=== PATIENT | male | born 1930 | race Caucasian/White ===

== ENCOUNTER → 2018-06-19 | Outpatient (CLI) | payer BC ==
[2018-06-19 08:52] LABS: HEMATOCRIT 39.9 % (37.9-51.0); HEMOGLOBIN 13.3 g/dL (13.5-17.0); MEAN CORPUSCULAR HEMOGLOBIN 32.5 pg (27.0-33.4); MEAN CORPUSCULAR HGB CONC 33.4 g/dL (32.0-36.0); MEAN CORPUSCULAR VOLUME 97 fl (80-97); PLATELET COUNT 240 10^3/uL (150-450); RED CELL DISTRIBUTION WIDTH 13.9 % (11.5-14.0); WHITE BLOOD COUNT 7.2 10^3/uL (4.0-10.5)
[2018-06-19 09:19] LABS: ALANINE AMINOTRANSFERASE 28 U/L (21-72); ALBUMIN 3.8 g/dL (3.5-5.0); ALKALINE PHOSPHATASE 32 U/L (38-126); ANION GAP 12 (5-19); ASPARTATE AMINO TRANSFERASE 33 U/L (17-59); BILIRUBIN,DIRECT 0.2 mg/dL (0.0-0.4); BILIRUBIN,TOTAL 0.5 mg/dL (0.2-1.3); BLOOD UREA NITROGEN 20 mg/dL (7-20); CALCIUM 9.6 mg/dL (8.4-10.2); CARBON DIOXIDE 24 mmol/L (22-30); CHLORIDE 108 mmol/L (98-107); GLUCOSE 114 mg/dL (75-110); POTASSIUM 4.4 mmol/L (3.6-5.0); SODIUM 143.8 mmol/L (137-145); TOTAL PROTEIN 6.6 g/dL (6.3-8.2)
== END ==
LOC: LCAL 07:52
PROVIDERS: ATTEND Internal Medicine
DX: M05.89 Other rheumatoid arthritis with rheumatoid factor of multiple sites (principal)
CPT/HCPCS: 36415; 80053; 85027

== ENCOUNTER 2019-02-06 23:05 | Emergency (ER) | payer MEDICARE, BC ==
[2019-02-06] MEDS ORDERED: HYDROCODONE/ACETAMINOPHEN 5-325 MG TABLET PO ONE (23:32)
[2019-02-06] MEDS ORDERED: METHYLPREDNISOLONE INJ 125 MG/2 ML SDV IM ONE (23:32)
--- NOTE | 2019-02-06 23:35 | ER Document Report ---
HPI - HPI Time Seen by Provider: 02/06/19 23:18 Pain Level: 4 Context: Patient is a 89-year-old male that comes emergency department from long-term [facility] facility by EMS for chief complaint of left back and upper shoulder pain. He denies pain in the front shoulder or chest. Denies shortness of breath, injury, fever/chills, cough. 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 He has a history of rheumatoid arthritis on methotrexate. Remaining history includes dementia, COPD, TBI. He is not a diabetic. Past Medical History - General Information source: Patient - Social History Smoking Status: Never Smoker Frequency of alcohol use: None Drug Abuse: None Lives with: Family Family History: Reviewed & Not Pertinent Pulmonary Medical History: Reports: Hx COPD - Immunizations Hx Diphtheria, Pertussis, Tetanus Vaccination: Yes Vertical Provider Document - CONSTITUTIONAL General Appearance: WD/WN, No Apparent Distress - INFECTION CONTROL TRAVEL OUTSIDE OF THE [place] IN LAST 30 DAYS: No - HEENT HEENT: Atraumatic, Normocephalic - NECK Neck: Normal Inspection - RESPIRATORY Respiratory: Breath Sounds Normal, No Respiratory Distress - CARDIOVASCULAR Cardiovascular: Regular Rate, Regular Rhythm - GI/ABDOMEN Gastrointestinal: Abdomen Soft, Abdomen Non-Tender - BACK Back: Normal Inspection - MUSCULOSKELETAL/EXTREMETIES Musculoskeletal/Extremeties: MAEW, FROM, Tender - There is tenderness of the left shoulder just superior to the left scapula, there is point tenderness which is specific and reproducible. Pain is present with range of motion but not severe, range of motion is intact. Strength is normal, distal neurovascular is normal, unremarkable extremity exam otherwise - NEURO Level of Consciousness: Awake, Alert, Appropriate Motor/Sensory: No Motor Deficit, No Sensory Deficit - DERM Integumentary: Warm, Dry, No Rash Course - Re-evaluation Re-evalutation: Patient is pleasant, alert, conversational. He reaches behind his left shoulder and points to a specific area just beside scapula and just above the scapula where he has pain, this is reproducible, palpable, mildly tender. Pain is reproducible with range of motion but not severely tender. He does not have reduced range of motion. This does not appear to be musculoskeletal only with strain/spasm and patient with history of arthritis. I did discuss options including aggressive approach such as cardiac workup and imaging but patient declined. He is still oriented and specific that I feel he has the capacity to decline this and based on his benign examination I do not feel this is definitely indicated. His vital signs unremarkable. He states he does not want something for it to be comfortable now, he was provided with this, after discussion we also decided to give him a dose of steroids here. He does not have orthopedics here, he asks for a referral. He was given this. He will be taken back to long-term care facility with return precautions. Patient states satisfaction and agreement. Discharge - Discharge Clinical Impression: Upper back pain on left side Left shoulder pain Qualifiers: Chronicity: acute Qualified Code(s): M25.512 - Pain in left shoulder Condition: Stable Disposition: HOME, SELF-CARE Additional Instructions: You have been treated today for the pain in your left upper back and shoulder. I recommend orthopedic follow-up, see referral, perform this especially if symptoms continue for additional management. Return if you worsen including increased pain, fever, shortness of breath, pain in your chest, headache, or any other concerning or worsening symptoms. Referrals: OYUNG LOZANO MD [ACTIVE STAFF] - Follow up in 1 week
[2019-02-07 02:28] VITALS: BP 156/80
== END 2019-02-07 02:28 | disposition home or self-care (01) ==
LOC: ER 23:05
DX: M06.9 Rheumatoid arthritis, unspecified (principal); Z79.899 Other long term (current) drug therapy; M54.89 Other dorsalgia; M25.512 Pain in left shoulder; J44.9 Chronic obstructive pulmonary disease, unspecified
CPT/HCPCS: 99283; 96372; J2930; A9270

== ENCOUNTER → 2019-11-27 | Outpatient (CLI) | payer MEDICARE, BC ==
[2019-11-27 10:44] LABS: ALBUMIN 4.1 g/dL (3.5-5.0); ALKALINE PHOSPHATASE 55 U/L (38-126); ANION GAP 10 (5-19); ASPARTATE AMINO TRANSFERASE 26 U/L (17-59); BILIRUBIN,DIRECT 0.2 mg/dL (0.0-0.4); BILIRUBIN,TOTAL 0.5 mg/dL (0.2-1.3); BLOOD UREA NITROGEN 16 mg/dL (7-20); CALCIUM 9.6 mg/dL (8.4-10.2); CARBON DIOXIDE 27 mmol/L (22-30); CHLORIDE 100 mmol/L (98-107); GLUCOSE 93 mg/dL (75-110)
== END ==
LOC: OD 09:29
PROVIDERS: ATTEND Internal Medicine
DX: M05.9 Rheumatoid arthritis with rheumatoid factor, unspecified (principal); Z79.899 Other long term (current) drug therapy
CPT/HCPCS: 36415; 80053

== ENCOUNTER 2020-05-02 17:16 | Inpatient (IN) | payer MEDICARE, BC ==
[2020-05-02] MEDS ORDERED: NORMAL SALINE 1000 ML 1,000 ML IV ONE (17:42)
[2020-05-02 17:55] LABS: HEMOGLOBIN 11.3 g/dL (13.5-17.0); MEAN CORPUSCULAR HEMOGLOBIN 32.2 pg (27.0-33.4); MEAN CORPUSCULAR HGB CONC 33.3 g/dL (32.0-36.0); MEAN CORPUSCULAR VOLUME 97 fl (80-97); PLATELET COUNT 240 10^3/uL (150-450); RED BLOOD COUNT 3.52 10^6/uL (4.35-5.55); RED CELL DISTRIBUTION WIDTH 14.1 % (11.5-14.0); VENOUS BLOOD BASE EXCESS 1.2 mmol/L; VENOUS BLOOD HCO3 24.5 mmol/L (20-32); VENOUS BLOOD PCO2 34.8 mmHg (35-63); VENOUS BLOOD PH 7.47 (7.30-7.42); WHITE BLOOD COUNT 22.5 10^3/uL (4.0-10.5)
[2020-05-02] MEDS ORDERED: VANCOMYCIN HCL INJ 1000 MG VIAL IV ONE (18:13)
[2020-05-02 18:14] LABS: ALBUMIN 2.8 g/dL (3.5-5.0); ALKALINE PHOSPHATASE 67 U/L (38-126); ANION GAP 8 (5-19); ASPARTATE AMINO TRANSFERASE 27 U/L (17-59); BILIRUBIN,DIRECT 0.2 mg/dL (0.0-0.4); BILIRUBIN,TOTAL 0.7 mg/dL (0.2-1.3); BLOOD UREA NITROGEN 41 mg/dL (7-20); CALCIUM 8.5 mg/dL (8.4-10.2); CARBON DIOXIDE 24 mmol/L (22-30); CHLORIDE 97 mmol/L (98-107); GLUCOSE 156 mg/dL (75-110); POTASSIUM 4.1 mmol/L (3.6-5.0); TOTAL PROTEIN 5.6 g/dL (6.3-8.2)
[2020-05-02 18:18] LABS: INTERNATIONAL RATION (INR) 1.27
[2020-05-02] MEDS ORDERED: AZITHROMYCIN INJ 500 MG VIAL IV ONE (18:22)
[2020-05-02] MEDS ORDERED: IBUPROFEN 600 MG TABLET PO ONE (18:22)
--- NOTE | 2020-05-02 18:22 | ER Document Report ---
ED General - General Chief Complaint: Fever Stated Complaint: FEVER Time Seen by Provider: 05/02/20 18:13 Primary Care Provider: JOSEFINA CASTANEDA MD [Primary Care Provider] - Follow up as needed Notes: Patient presents with generalized weakness and fever from nursing facility. He has no complaints. History is unavailable. Initially hypotensive sepsis alert called. TRAVEL OUTSIDE OF THE [place] IN LAST 30 DAYS: No - Related Data Allergies/Adverse Reactions: gabapentin Allergy (Verified 02/07/19 00:06) lidocaine Allergy (Verified 02/07/19 00:06) meperidine [From Demerol] Allergy (Verified 02/07/19 00:06) Past Medical History - General Cannot obtain history due to: Dementia - Social History Smoking Status: Former Smoker Chew tobacco use (# tins/day): No Frequency of alcohol use: None Drug Abuse: None Family History: Reviewed & Not Pertinent Patient has homicidal ideation: No Pulmonary Medical History: Reports: Hx COPD Renal/ Medical History: Denies: Hx Peritoneal Dialysis GI Medical History: Reports: Hx Gastroesophageal Reflux Disease Musculoskeletal Medical History: Reports Hx Arthritis - RA - Immunizations Hx Diphtheria, Pertussis, Tetanus Vaccination: Yes Review of Systems - Review of Systems Notes: REVIEW OF SYSTEMS Dementia PHYSICAL EXAMINATION General: A, pale no acute distress, well-nourished Head: Atraumatic, normocephalic ENT: Mouth normal, oropharynx moist, no exudates or tonsillar enlargement Eyes: Conjunctiva normal, pupils equal, lids normal Neck: No JVD, supple, no guarding CVS: Normal rate, regular rhythm, no murmurs Resp: No resp distress, equal and normal breath sounds bilaterally GI: Nondistended, soft, no tenderness to palpation, no rebound or guarding Ext: No deformities, no edema, normal range of motion in upper and lower ext Back: No CVA or midline TTP Skin: No rash, warm Lymphatic: No lymphadeopathy noted Neuro: Awake, alert. Which he confabulation but is not oriented to year or place. Knows his name. Face is symmetric with no dysarthria and he moves all extremities equally. Physical Exam - Vital signs Vitals: Temp Pulse Ox 101.0 F H 93 05/02/20 17:16 05/02/20 17:16 Course - Re-evaluation Re-evalutation: 06/15/20 21:51 Mental status with signs and symptoms of sepsisunclear source initially differential includes COVID Skin with no acute infection X-ray shows questionable left lower lobe infiltrate. Given Rocephin vancomycin and azithromycin to cover for any potential sepsis source. Given fluids order 2 L but expressed interest I want 30 mL/kg total. Lactic is elevated but not to the point of septic shock and pressure responded to fluids Patient's urine is also infected. Discussed with Dr. Arrington who requested we do a CT to rule out impacted kidney stone The CT did not show this but did confirm a left lower lobe consolidation. Patient's white count is grossly elevated and he has a touch of acute kidney injury. Fluids should help this. He was [address] Arrington at 9:50 PM who accepted him to the [facility]. Claire known wn CODE STATUS, no paperwork from facility. COVID pending. - Vital Signs Vital signs: Temp Pulse Resp BP Pulse Ox 97.6 F 19 93/60 L 97 05/02/20 20:39 05/02/20 20:31 05/02/20 20:31 05/02/20 20:31 - Laboratory Result Diagrams: 05/02/20 17:28 05/02/20 17:28 Laboratory results interpreted by me: 05/02/20 05/02/20 05/02/20 17:28 17:28 17:28 WBC 22.5 H RBC 3.52 L Hgb 11.3 L Hct 34.0 L RDW 14.1 H Seg Neuts % (Manual) 85 H Band Neutrophils % 2 L Lymphocytes % (Manual) 4 L Abs Neuts (Manual) 19.6 H Abs Monocytes (Manual) 2.0 H PT 16.0 H VBG pH VBG pCO2 Sodium 128.6 L Chloride 97 L BUN 41 H Creatinine 2.26 H Est GFR ( Amer) 33 L Est GFR (MDRD) Non-Af 28 L Glucose 156 H Total Protein 5.6 L Albumin 2.8 L Urine Urobilinogen Ur Leukocyte Esterase Urine Ascorbic Acid 05/02/20 05/02/20 17:28 18:34 WBC RBC Hgb Hct RDW Seg Neuts % (Manual) Band Neutrophils % Lymphocytes % (Manual) Abs Neuts (Manual) Abs Monocytes (Manual) PT VBG pH 7.47 H VBG pCO2 34.8 L Sodium Chloride BUN Creatinine Est GFR ( Amer) Est GFR (MDRD) Non-Af Glucose Total Protein Albumin Urine Urobilinogen 2.0 H Ur Leukocyte Esterase LARGE H Urine Ascorbic Acid 40 H - Diagnostic Test Radiology reviewed: Image reviewed, Reports reviewed - EKG Interpretation by Me EKG shows normal: Sinus rhythm Rate: Normal Rhythm: NSR - No ST or T wave changes Critical Care Note - Critical Care Note Total time excluding time spent on procedures (mins): 34 Comments: The above patient is critically ill. Not including procedures, but including direct re-evaluations, speaking with patient and/or consultants, interpreting results, and documenting, I spent the total amount of minute listed listed above on critical care time Discharge - Discharge Clinical Impression: Left lower lobe pneumonia Qualifiers: Pneumonia type: due to unspecified organism Qualified Code(s): J18.9 - Pneumonia, unspecified organism Condition: Fair Disposition: ADMITTED INPATIENT Admitting Provider: Murphy (Hospitalist) Unit Admitted: IMCU Referrals: JOSEFINA CASTANEDA MD [Primary Care Provider] - Follow up as needed
[2020-05-02 18:45] LABS: ABSOLUTE LYMPHOCYTES# (MANUAL) 0.9 10^3/uL (0.5-4.7); BAND NEUTROPHILS % (MANUAL) 2 % (3-5); BASOPHILS % (MANUAL) 0 % (0-2); EOSINOPHILS % (MANUAL) 0 % (0-6); LYMPHOCYTES % (MANUAL) 4 % (13-45); MONOCYTES % (MANUAL) 9 % (3-13); SEGMENTED NEUTROPHILS % (MAN) 85 % (42-78); TOTAL CELLS COUNTED 100
[2020-05-02 18:47] LABS: BURR CELLS SLIGHT; OVALOCYTES 1+
[2020-05-02] MEDS: RINGERS SOLUTION,LACTATED 1,000 ML IV PRN ×2 (18:47→19:36)
[2020-05-02] MEDS ORDERED: ASPIRIN 325 MG TABLET PO ONE (18:47)
[2020-05-02 18:48] LABS: PLATELET COMMENT ADEQUATE; SCHISTOCYTES SLIGHT
[2020-05-02] MEDS ORDERED: CEFTRIAXONE 1 GM/D5W RTU 1 GM/50 ML RTUPB IV ONE (19:00)
--- NOTE | 2020-05-02 19:10 | RADIOLOGY REPORT (SQ) ---
EXAM DESCRIPTION: CHEST SINGLE VIEW IMAGES COMPLETED DATE/TIME: 05/02/2020 6:44 pm REASON FOR STUDY: fever COMPARISON: None. EXAM PARAMETERS: NUMBER OF VIEWS: One view. TECHNIQUE: Single frontal radiographic view of the chest acquired. RADIATION DOSE: NA LIMITATIONS: None. FINDINGS: LUNGS AND PLEURA: Elevated left hemidiaphragm. Hazy opacification in the left base that b lurs the diaphragm. MEDIASTINUM AND HILAR STRUCTURES: No masses. Contour normal. HEART AND VASCULAR STRUCTURES: Heart normal in size. Normal vasculature. BONES: No acute findings. HARDWARE: None in the chest. OTHER: No other significant finding. IMPRESSION: Elevated left hemidiaphragm. Cannot exclude left lower lobe pneumonia. TECHNICAL DOCUMENTATION: JOB ID: [id number] 2010 [employer]- All Rights Reserved Reading location - IP/workstation name: [email or web address]
[2020-05-02 19:31] LABS: APPEARANCE,URINE SLIGHTLY-CLOUDY; BILIRUBIN,URINE NEGATIVE (NEGATIVE); COLOR,URINE AMBER; GLUCOSE, URINE NEGATIVE (NEGATIVE); KETONES,URINE NEGATIVE (NEGATIVE); LEUKOCYTE ESTERASE,URINE LARGE (NEGATIVE); NITRITE,URINE NEGATIVE (NEGATIVE); PROTEIN,URINE NEGATIVE (NEGATIVE); URINE SPECIFIC GRAVITY 1.015
--- NOTE | 2020-05-02 19:58 | EKG REPORT ---
SEVERITY:- ABNORMAL ECG - SEVERE BASELINE TREMORS. BORDERLINE LEFT AXIS DEVIATION LEFT VENTRICULAR HYPERTROPHY : Confirmed by: Eldon Fraser MD 02-May-2020 19:58:16
--- NOTE | 2020-05-02 21:41 | RADIOLOGY REPORT (SQ) ---
CLINICAL INDICATION: stone?. Abdominal pains. TECHNIQUE: Noncontrast spiral axial CT imaging was obtained of the abdomen and pelvis with multiplanar reconstructions. This exam was performed according to our departmental dose-optimization program, which includes automated exposure control, adjustment of the mA and/or kV according to patient size and/or use of iterative reconstruction techniques. COMPARISON: None. CORRELATION: None. FINDINGS: Abdomen: The lung bases demonstrate dependent airspace disease bilaterally both atelectatic and consolidated topically left base. No significant pleural fluid. No pneumothorax. The heart is prominent with coronary calcification. No pericardial fluid. Apparent pleural calcification left hemithorax The liver is homogeneous. The gallbladder demonstrates cholelithiasis without acute cholecystitis. The pancreas is of grossly normal contour on this noncontrast examination. The spleen is unremarkable. The adrenals are unremarkable. The kidneys appear grossly normal without evidence of urolithiasis or hydronephrosis. Cortical loss, bilaterally. There is no evidence of free air. No free fluid. No bulky adenopathy. Abdominal aorta is nonaneurysmal. Pelvis: The bowel is nonobstructed. The bowel is unopacified with oral contrast. Pelvic contents there is a Trevizo catheter within a decompressed urinary bladder.. The appendix is not seen. Subcutaneous edema left lower quadrant. Visualized bones are unremarkable. IMPRESSION: Artifact from the patient's arms. Imaging is degraded by patient motion, with resultant artifact. The best possible images were obtained. Bibasilar airspace disease left greater than right. Most of this is atelectasis. There is a small consolidated component left lower lobe. Possibly pneumonia is raised. Cholelithiasis without acute cholecystitis. No acute intra-abdominal process is seen.
[2020-05-02] MEDS ORDERED: IPRATROPIUM/ALBUTEROL 0.5-2.5 MG/3 ML AMPUL NEB PRN (21:51)
[2020-05-02] MEDS ORDERED: MAG HYDROX/AL HYDROX/SIMETH SUSP 30 ML UDCUP PO PRN (21:51)
[2020-05-02] MEDS ORDERED: MAGNESIUM HYDROXIDE SUSP 30 ML UDCUP PO PRN (21:51)
[2020-05-02] MEDS ORDERED: VANCOMYCIN HCL 0 MG in DEXTROSE 5%-WATER 250 ML IV NR (22:00)
[2020-05-02] MEDS: DONEPEZIL HCL 5 MG TABLET PO SCH (22:46)
[2020-05-02] MEDS: HYDROCORTISONE SOD SUCCINATE INJ/PF 100 MG/2 ML SDV IV SCH (22:46)
[2020-05-02] MEDS: HEPARIN SOD (PORCINE) 5,000 UNIT/ML 1 ML VIAL SUBCUT SCH (22:47)
[2020-05-02] MEDS: NORMAL SALINE 1000 ML 1,000 ML IV PRN (22:59)
[2020-05-02 23:17] LABS: PHOSPHORUS 2.3 mg/dL (2.5-4.5)
[2020-05-03] MEDS: ASCORBIC ACID 500 MG TABLET PO SCH ×3 (00:18→17:10)
[2020-05-03] MEDS: ZINC SULFATE 220 MG CAPSULE PO SCH ×2 (00:19→09:43)
[2020-05-03 01:11] LABS: C-REACTIVE PROTEIN 371.4 mg/L (<10.0)
[2020-05-03] MEDS: IPRATROPIUM/ALBUTEROL 0.5-2.5 MG/3 ML AMPUL NEB SCH ×4 (01:49→16:07)
--- NOTE | 2020-05-03 03:29 | PDOC H&P ---
History of Present Illness Admission Date/PCP: 05/02/20 22:07 JOSEFINA CASTANEDA Patient complains of: Fever History of Present Illness: MATILDE MARINO is a 89 year old male assisted resident with a past medical history of dementia, COPD and GERD. He presents with fever of unknown duration. In the emergency department he is found to have hypotension, tachypnea and hypoxia with hyponatremia, presumed acute renal failure leukocytosis and elevated troponin with unremarkable EKG. And a left lower lobe infiltrate. Patient is intermittently cooperative, an extraordinarily poor historian and oriented to self only. He denies pain, nausea vomiting or shortness of breath. He started on empiric antibiotics and referred to the hospitalist for admission. Past Medical History Pulmonary Medical History: Reports: Chronic Obstructive Pulmonary Disease (COPD) Neurological Medical History: Reports: Other - Dementia GI Medical History: Reports: Gastroesophageal Reflux Disease Musculoskeltal Medical History: Reports: Arthritis - RA Psychiatric Medical History: Reports: Dementia Denies: Depression Social History Information Source: [facility] Records Lives with: Group Home Smoking Status: Former Smoker Electronic Cigarette use?: No Frequency of Alcohol Use: None Drugs: None - Advance Directive Resuscitation Status: Do Not Resuscitate Family History Family History: Other - Unobtainable Parental Family History Reviewed: Yes Children Family History Reviewed: Yes Sibling(s) Family History Reviewed.: Yes Medication/Allergy Home Medications: Alfuzosin HCl [Uroxatral] 10 mg PO DAILY 05/02/20 Aspirin [Ecotrin 81 mg EC Tablet] 81 mg PO DAILY 05/02/20 Cholecalciferol (Vitamin D3) [Vitamin D3 1000 Unit Tablet] 2,000 unit PO DAILY 05/02/20 Cyanocobalamin (Vitamin B-12) [Vitamin B-12 1000 mcg Tablet] 1,000 mcg PO DAILY 05/02/20 Donepezil HCl [Aricept 5 mg Tablet] 10 mg PO QHS 05/02/20 Fluticasone Propionate [Flonase Nasal Loda 50 Mcg/Loda 16 gm] 2 spray NASL DAILY 05/02/20 Folic Acid [Folvite 1 mg Tablet] 1 mg PO DAILY 05/02/20 Loratadine [Claritin 10 mg Tablet] 10 mg PO DAILY 05/02/20 Lorazepam [Ativan 0.5 mg Tablet] 0.5 mg PO Q6HP PRN 05/02/20 Meloxicam [Mobic 7.5 mg Tablet] 7.5 mg PO DAILY 05/02/20 Memantine HCl [Namenda 10 mg Tablet] 10 mg PO BID 05/02/20 Methotrexate Sodium [Rheumatrex 2.5 mg Tablet] 5 mg PO FR@1000 05/02/20 Omeprazole 20 mg PO Q6AM 05/02/20 Propylene Glycol/Peg 400 [Systane 0.3-0.4% Eye Drops] 1 drop OU TID 05/02/20 Sennosides/Docusate Sodium [Senna Plus 8.6-50 mg Tablet] 1 tab PO DAILY 05/02/20 Vit A/Vit C/Vit E/Zinc/Copper [Preservision Areds Tablet] 1 tab PO BID 05/02/20 Allergies/Adverse Reactions: gabapentin Allergy (Verified 02/07/19 00:06) lidocaine Allergy (Verified 02/07/19 00:06) meperidine [From Demerol] Allergy (Verified 02/07/19 00:06) Review of Systems ROS unobtainable: Due to mental status Physical Exam Vital Signs: Temp Pulse Resp BP Pulse Ox 97.7 F 97 18 110/66 94 05/02/20 23:40 05/03/20 00:07 05/02/20 23:40 05/02/20 23:40 05/02/20 23:40 Intake & Output 05/01/20 05/02/20 05/03/20 11:59 11:59 11:59 Intake Total 2866 Balance 2866 Weight 70.9 kg General appearance: PRESENT: mild distress, well-developed, well-nourished, other - Chronically ill-appearing. ABSENT: cooperative Head exam: PRESENT: atraumatic, normocephalic Eye exam: PRESENT: conjunctiva pink, EOMI, PERRLA. ABSENT: scleral icterus Ear exam: PRESENT: normal external ear exam Mouth exam: PRESENT: moist, tongue midline Neck exam: ABSENT: carotid bruit, JVD, lymphadenopathy, thyromegaly Respiratory exam: PRESENT: accessory muscle use, crackles, prolonged expiratory phas, retraction, rhonchi, tachypnea. ABSENT: symmetrical, wheezes Cardiovascular exam: PRESENT: RRR. ABSENT: diastolic murmur, rubs, systolic murmur Pulses: PRESENT: normal dorsalis pedis pul Vascular exam: PRESENT: normal capillary refill GI/Abdominal exam: PRESENT: normal bowel sounds, soft. ABSENT: distended, guarding, mass, organolmegaly, rebound, tenderness Rectal exam: PRESENT: deferred Extremities exam: PRESENT: full ROM. ABSENT: calf tenderness, clubbing, pedal edema Musculoskeletal exam: PRESENT: other - Global muscular atrophy Neurological exam: PRESENT: alert, awake, oriented to person, CN II-XII grossly intact. ABSENT: oriented to place, oriented to time, oriented to situation, motor sensory deficit Psychiatric exam: PRESENT: agitated Skin exam: PRESENT: dry, intact, warm. ABSENT: cyanosis, rash Results Laboratory Results: 05/02/20 17:28 05/02/20 17:28 05/02/20 05/02/20 05/02/20 17:28 17:28 17:28 WBC 22.5 H RBC 3.52 L Hgb 11.3 L Hct 34.0 L MCV 97 MCH 32.2 MCHC 33.3 RDW 14.1 H Plt Count 240 Seg Neutrophils % Not Reportable VBG pH 7.47 H VBG pCO2 34.8 L VBG HCO3 24.5 VBG Base Excess 1.2 Sodium 128.6 L Potassium 4.1 Chloride 97 L Carbon Dioxide 24 Anion Gap 8 BUN 41 H Creatinine 2.26 H Est GFR ( Amer) 33 L Glucose 156 H Lactic Acid Calcium 8.5 Phosphorus Magnesium Ferritin Total Bilirubin 0.7 AST 27 Alkaline Phosphatase 67 C-Reactive Protein Total Protein 5.6 L Albumin 2.8 L Urine Color Urine Appearance Urine pH Ur Specific [place] Urine Protein Urine Glucose (UA) Urine Ketones Urine Blood Urine Nitrite Ur Leukocyte Esterase Urine WBC (Auto) Urine RBC (Auto) 05/02/20 05/02/20 05/02/20 17:28 17:28 17:28 WBC RBC Hgb Hct MCV MCH MCHC RDW Plt Count Seg Neutrophils % VBG pH VBG pCO2 VBG HCO3 VBG Base Excess Sodium Potassium Chloride Carbon Dioxide Anion Gap BUN Creatinine Est GFR ( Amer) Glucose Lactic Acid 1.6 Calcium Phosphorus 2.3 L Magnesium 2.1 Ferritin 331.00 Total Bilirubin AST Alkaline Phosphatase C-Reactive Protein 371.4 H Total Protein Albumin Urine Color Urine Appearance Urine pH Ur Specific [place] Urine Protein Urine Glucose (UA) Urine Ketones Urine Blood Urine Nitrite Ur Leukocyte Esterase Urine WBC (Auto) Urine RBC (Auto) 06/05/02/20 05/03/20 18:34 20:30 00:38 WBC RBC Hgb Hct MCV MCH MCHC RDW Plt Count Seg Neutrophils % VBG pH VBG pCO2 VBG HCO3 VBG Base Excess Sodium Potassium Chloride Carbon Dioxide Anion Gap BUN Creatinine Est GFR ( Amer) Glucose Lactic Acid 1.9 1.2 Calcium Phosphorus Magnesium Ferritin Total Bilirubin AST Alkaline Phosphatase C-Reactive Protein Total Protein Albumin Urine Color TAL Urine Appearance SLIGHTLY-CLOUDY Urine pH 5.0 Ur Specific [place] 1.015 Urine Protein NEGATIVE Urine Glucose (UA) NEGATIVE Urine Ketones NEGATIVE Urine Blood NEGATIVE Urine Nitrite NEGATIVE Ur Leukocyte Esterase LARGE H Urine WBC (Auto) 36 Urine RBC (Auto) 4 05/02/20 05/02/20 05/03/20 17:28 17:28 00:38 Creatine Kinase 310 H Troponin I 0.703 0.422 Impressions: Chest X-Ray 05/02/20 18:11 IMPRESSION: Elevated left hemidiaphragm. Cannot exclude left lower lobe pneumonia. Abdomen/Pelvis CT 05/02/20 19:39 IMPRESSION: Artifact from the patient's arms. Imaging is degraded by patient motion, with resultant artifact. The best possible images were obtained. Bibasilar airspace disease left greater than right. Most of this is atelectasis. There is a small consolidated component left lower lobe. Possibly pneumonia is raised. Cholelithiasis without acute cholecystitis. No acute intra-abdominal process is seen. Assessment and Plan - Diagnosis (1) Left lower lobe pneumonia Qualifiers: Pneumonia type: due to unspecified organism Qualified Code(s): J18.9 - Pneumonia, unspecified organism Is this a current diagnosis for this admission?: Yes Plan: Pneumonia care set, significant suspicion of COVID, follow-up labs otherwise empiric antibiotics, follow-up CBC, blood culture and COVID testing. (2) Shortness of breath Is this a current diagnosis for this admission?: Yes Plan: Secondary to #1, incentive spirometry, flutter valve as tolerated, supplemental oxygen, albuterol and Atrovent, (3) Acute renal failure (ARF) Is this a current diagnosis for this admission?: Yes Plan: Likely secondary to #1, IV fluid challenge, avoid nephrotoxic meds and doses follow-up chemistry (4) Elevated troponin I level Is this a current diagnosis for this admission?: Yes Plan: Likely secondary to #1, complicated by acute renal failure, denies cardiac symptoms, EKG unremarkable, trend serial cardiac enzymes. (5) Dementia Is this a current diagnosis for this admission?: Yes Plan: Continue outpatient regiment and supportive care. - Time Time Spent with patient: 25-34 minutes - Inpatient Certification Medical Necessity: Need Close Monitoring Due to Risk of Patient Decompensation
[2020-05-03] MEDS: NORMAL SALINE 1000 ML 1,000 ML IV PRN (03:45)
[2020-05-03] MEDS: HEPARIN SOD (PORCINE) 5,000 UNIT/ML 1 ML VIAL SUBCUT SCH ×3 (05:12→22:08)
[2020-05-03] MEDS: HYDROCORTISONE SOD SUCCINATE INJ/PF 100 MG/2 ML SDV IV SCH ×3 (05:12→22:08)
[2020-05-03 08:51] LABS: HEMATOCRIT 36.9 % (37.9-51.0); HEMOGLOBIN 12.3 g/dL (13.5-17.0); MEAN CORPUSCULAR HEMOGLOBIN 32.3 pg (27.0-33.4); MEAN CORPUSCULAR HGB CONC 33.4 g/dL (32.0-36.0); MEAN CORPUSCULAR VOLUME 97 fl (80-97); PLATELET COUNT 243 10^3/uL (150-450); RED BLOOD COUNT 3.81 10^6/uL (4.35-5.55); RED CELL DISTRIBUTION WIDTH 14.4 % (11.5-14.0); WHITE BLOOD COUNT 28.1 10^3/uL (4.0-10.5)
[2020-05-03 09:37] LABS: ABSOLUTE LYMPHOCYTES# (MANUAL) 0.8 10^3/uL (0.5-4.7); ABSOLUTE MONOCYTES # (MANUAL) 2.5 10^3/uL (0.1-1.4); BAND NEUTROPHILS % (MANUAL) 6 % (3-5); BASOPHILS % (MANUAL) 0 % (0-2); EOSINOPHILS % (MANUAL) 0 % (0-6); LYMPHOCYTES % (MANUAL) 3 % (13-45); MONOCYTES % (MANUAL) 9 % (3-13); SEGMENTED NEUTROPHILS % (MAN) 82 % (42-78); TOTAL CELLS COUNTED 100
[2020-05-03 09:38] LABS: TOXIC GRANULATION SLIGHT; TOXIC VACUOLATION PRESENT
[2020-05-03 09:39] LABS: ANISOCYTOSIS SLIGHT; BURR CELLS SLIGHT; PLATELET CLUMPS PRESENT; PLATELET COMMENT ADEQUATE
[2020-05-03] MEDS: MELOXICAM 7.5 MG TABLET PO SCH (09:43)
[2020-05-03] MEDS: CHOLECALCIFEROL (D3) 1,000 UNIT (25 MCG) TABLET PO SCH (09:43)
[2020-05-03] MEDS: FLUTICASONE NASAL SPRAY 50 MCG/SPRY 120 SPRAY/16 GM NASL SCH (09:43)
[2020-05-03] MEDS: ASPIRIN 81 MG TABLET, ENT COATED PO SCH (09:43)
[2020-05-03] MEDS: DOCUSATE SODIUM 100 MG CAPSULE PO SCH ×2 (09:43→17:11)
[2020-05-03] MEDS: LORATADINE 10 MG TABLET PO SCH (09:43)
[2020-05-03] MEDS: MEMANTINE HCL 10 MG TABLET PO SCH ×2 (09:43→17:10)
[2020-05-03] MEDS: CYANOCOBALAMIN (VITAMIN B-12) 1,000 MCG TABLET PO SCH (09:43)
[2020-05-03] MEDS: FOLIC ACID 1 MG TABLET PO SCH (09:43)
[2020-05-03] MEDS: SENNOSIDES/DOCUSATE 8.6-50 MG 1 EACH TABLET PO SCH (09:44)
[2020-05-03] MEDS: LORAZEPAM 0.5 MG TABLET PO PRN ×2 (09:45→17:09)
[2020-05-03] MEDS ORDERED: VIT A PO SCH (10:00)
[2020-05-03] MEDS ORDERED: ZINC PO SCH (10:00)
[2020-05-03] MEDS ORDERED: COPPER PO SCH (10:00)
[2020-05-03] MEDS ORDERED: PEG OU SCH (10:00)
[2020-05-03] MEDS ORDERED: PROPYLENE GLYCOL OU SCH (10:00)
[2020-05-03] MEDS ORDERED: VIT E PO SCH (10:00)
[2020-05-03] MEDS ORDERED: VIT C PO SCH (10:00)
[2020-05-03 11:23] LABS: ANION GAP 8 (5-19); BLOOD UREA NITROGEN 36 mg/dL (7-20); CALCIUM 8.1 mg/dL (8.4-10.2); CARBON DIOXIDE 20 mmol/L (22-30); CHLORIDE 103 mmol/L (98-107); GLUCOSE 144 mg/dL (75-110); POTASSIUM 4.3 mmol/L (3.6-5.0)
--- NOTE | 2020-05-03 12:18 | PDOC PROGRESS REPORT ---
Subjective Progress Note for:: 05/03/20 Subjective:: 89 year old male assisted resident with a past medical history of dementia, COPD and GERD. He presents with fever of unknown duration. In the emergency department he is found to have hypotension, tachypnea and hypoxia with hyponatremia, presumed acute renal failure leukocytosis and elevated troponin with unremarkable EKG. And a left lower lobe infiltrate. Patient is intermittently cooperative, an extraordinarily poor historian and oriented to self only. He denies pain, nausea vomiting or shortness of breath. He started on empiric antibiotics and referred to the hospitalist for admission. 05/[id number]-old male assisted resident with history of dementia, COPD admitted with hypotension, tachycardia, hypoxia and hyponatremia. WBC count went up to 28,000 today. COVID test is pending. Constantly trying to come out of the bed nurses have difficulty keep him in the bed. Reason For Visit: PNA SEPSIS ARF Physical Exam Vital Signs: Temp Pulse Resp BP Pulse Ox 98.5 F 108 H 20 134/75 H 95 05/03/20 07:24 05/03/20 07:46 05/03/20 07:46 05/03/20 07:24 05/03/20 07:46 Intake & Output 05/02/20 05/03/20 05/04/20 06:59 06:59 06:59 Intake Total 3916 1000 Output Total 500 Balance 3416 1000 Weight 74.6 kg General appearance: PRESENT: no acute distress, well-developed Head exam: PRESENT: atraumatic Eye exam: PRESENT: PERRLA Mouth exam: PRESENT: moist, tongue midline Teeth exam: PRESENT: poor dentation Neck exam: ABSENT: carotid bruit, JVD, lymphadenopathy, thyromegaly Respiratory exam: PRESENT: decreased breath sounds Cardiovascular exam: PRESENT: RRR. ABSENT: diastolic murmur, rubs, systolic murmur Pulses: PRESENT: normal dorsalis pedis pul GI/Abdominal exam: PRESENT: normal bowel sounds, soft. ABSENT: distended, guarding, mass, organolmegaly, rebound, tenderness Rectal exam: PRESENT: deferred Extremities exam: PRESENT: full ROM. ABSENT: calf tenderness, clubbing, pedal edema Neurological exam: PRESENT: alert, awake, oriented to person, oriented to place, oriented to time, oriented to situation, CN II-XII grossly intact. ABSENT: motor sensory deficit Psychiatric exam: PRESENT: appropriate affect, normal mood. ABSENT: homicidal ideation, suicidal ideation Results Laboratory Results: 05/03/20 07:57 05/03/20 10:21 05/02/20 05/02/20 05/02/20 17:28 17:28 17:28 WBC 22.5 H RBC 3.52 L Hgb 11.3 L Hct 34.0 L MCV 97 MCH 32.2 MCHC 33.3 RDW 14.1 H Plt Count 240 Seg Neutrophils % Not Reportable VBG pH 7.47 H VBG pCO2 34.8 L VBG HCO3 24.5 VBG Base Excess 1.2 Sodium 128.6 L Potassium 4.1 Chloride 97 L Carbon Dioxide 24 Anion Gap 8 BUN 41 H Creatinine 2.26 H Est GFR ( Amer) 33 L Est GFR (Non-Af Amer) Glucose 156 H Lactic Acid Calcium 8.5 Phosphorus Magnesium Ferritin Total Bilirubin 0.7 AST 27 Alkaline Phosphatase 67 C-Reactive Protein Total Protein 5.6 L Albumin 2.8 L Urine Color Urine Appearance Urine pH Ur Specific [place] Urine Protein Urine Glucose (UA) Urine Ketones Urine Blood Urine Nitrite Ur Leukocyte Esterase Urine WBC (Auto) Urine RBC (Auto) 05/02/20 05/02/20 05/02/20 17:28 17:28 17:28 WBC RBC Hgb Hct MCV MCH MCHC RDW Plt Count Seg Neutrophils % VBG pH VBG pCO2 VBG HCO3 VBG Base Excess Sodium Potassium Chloride Carbon Dioxide Anion Gap BUN Creatinine Est GFR ( Amer) Est GFR (Non-Af Amer) Glucose Lactic Acid 1.6 Calcium Phosphorus 2.3 L Magnesium 2.1 Ferritin 331.00 Total Bilirubin AST Alkaline Phosphatase C-Reactive Protein 371.4 H Total Protein Albumin Urine Color Urine Appearance Urine pH Ur Specific [place] Urine Protein Urine Glucose (UA) Urine Ketones Urine Blood Urine Nitrite Ur Leukocyte Esterase Urine WBC (Auto) Urine RBC (Auto) 05/02/20 05/02/20 05/03/20 18:34 20:30 00:38 WBC RBC Hgb Hct MCV MCH MCHC RDW Plt Count Seg Neutrophils % VBG pH VBG pCO2 VBG HCO3 VBG Base Excess Sodium Potassium Chloride Carbon Dioxide Anion Gap BUN Creatinine Est GFR ( Amer) Est GFR (Non-Af Amer) Glucose Lactic Acid 1.9 1.2 Calcium Phosphorus Magnesium Ferritin Total Bilirubin AST Alkaline Phosphatase C-Reactive Protein Total Protein Albumin Urine Color TAL Urine Appearance SLIGHTLY-CLOUDY Urine pH 5.0 Ur Specific [place] 1.015 Urine Protein NEGATIVE Urine Glucose (UA) NEGATIVE Urine Ketones NEGATIVE Urine Blood NEGATIVE Urine Nitrite NEGATIVE Ur Leukocyte Esterase LARGE H Urine WBC (Auto) 36 Urine RBC (Auto) 4 05/03/20 05/03/20 05/03/20 07:57 07:57 10:21 WBC 28.1 H RBC 3.81 L Hgb 12.3 L Hct 36.9 L MCV 97 MCH 32.3 MCHC 33.4 RDW 14.4 H Plt Count 243 Seg Neutrophils % Not Reportable VBG pH VBG pCO2 VBG HCO3 VBG Base Excess Sodium Cancelled 131.3 L Potassium Cancelled 4.3 Chloride Cancelled 103 Carbon Dioxide Cancelled 20 L Anion Gap Cancelled 8 BUN Cancelled 36 H Creatinine Cancelled 1.52 H Est GFR ( Amer) Cancelled 53 L Est GFR (Non-Af Amer) Cancelled Glucose Cancelled 144 H Lactic Acid Calcium Cancelled 8.1 L Phosphorus Magnesium Ferritin Total Bilirubin AST Alkaline Phosphatase C-Reactive Protein Total Protein Albumin Urine Color Urine Appearance Urine pH Ur Specific [place] Urine Protein Urine Glucose (UA) Urine Ketones Urine Blood Urine Nitrite Ur Leukocyte Esterase Urine WBC (Auto) Urine RBC (Auto) 05/02/20 05/02/20 05/03/20 17:28 17:28 00:38 Creatine Kinase 310 H Troponin I 0.703 0.422 05/03/20 05/03/20 07:57 10:21 Creatine Kinase Troponin I Cancelled 0.240 Impressions: Chest X-Ray 05/02/20 18:11 IMPRESSION: Elevated left hemidiaphragm. Cannot exclude left lower lobe pneumonia. Abdomen/Pelvis CT 05/02/20 19:39 IMPRESSION: Artifact from the patient's arms. Imaging is degraded by patient motion, with resultant artifact. The best possible images were obtained. Bibasilar airspace disease left greater than right. Most of this is atelectasis. There is a small consolidated component left lower lobe. Possibly pneumonia is raised. Cholelithiasis without acute cholecystitis. No acute intra-abdominal process is seen. Assessment and Plan - Diagnosis (1) Left lower lobe pneumonia Qualifiers: Pneumonia type: due to unspecified organism Qualified Code(s): J18.9 - Pneumonia, unspecified organism Is this a current diagnosis for this admission?: Yes Plan: Pneumonia care set, significant suspicion of COVID, follow-up labs otherwise empiric antibiotics, follow-up CBC, blood culture and COVID testing. 05/03/2020-WBC count went up to 28,000 today presently on ceftriaxone and IV vancomycin. Call with test is pending. Latest temperature is 98.5 with blood pressure 134/75 respiratory rate is 20 pulse ox is 95% room air. Plan is to continue the IV antibiotic therapy waiting for the culture reports. (2) Shortness of breath Is this a current diagnosis for this admission?: Yes Plan: Secondary to #1, incentive spirometry, flutter valve as tolerated, supplemental oxygen, albuterol and Atrovent, 05/03/2020-pulse ox is 95% on room air not in shortness of breath at the time of my examination. (3) Acute renal failure (ARF) Is this a current diagnosis for this admission?: Yes Plan: Likely secondary to #1, IV fluid challenge, avoid nephrotoxic meds and doses follow-up chemistry 05/03/2020-serum creatinine is 2.26 at the time of admission with IV fluids to 1.52. Acute kidney injury is resolving. (4) Elevated troponin I level Is this a current diagnosis for this admission?: Yes Plan: Likely secondary to #1, complicated by acute renal failure, denies cardiac symptoms, EKG unremarkable, trend serial cardiac enzymes. 05/03/2020-patient denies any chest pains on admission troponin is 0.7 latest troponin is 0.2. (5) Dementia Is this a current diagnosis for this admission?: Yes Plan: Continue outpatient regiment and supportive care. (6) Hyponatremia Is this a current diagnosis for this admission?: Yes Plan: 05/03/2020-serum sodium is 128.6 admission with IV fluids improved to 131.3. H yponatremia most likely secondary to dehydration. Plan is to repeat the labs tomorrow.
[2020-05-03] MEDS ORDERED: METOPROLOL TARTRATE PF/INJ 5 MG/5 ML SDV IV ONE ×2 (16:56→18:00)
[2020-05-03] MEDS: VANCOMYCIN HCL 750 MG in DEXTROSE 5%-WATER 250 ML IV SCH (17:10)
[2020-05-03] MEDS: CEFTRIAXONE 1 GM/D5W RTU 1 GM/50 ML RTUPB IV SCH (17:10)
[2020-05-03] MEDS ORDERED: DILTIAZEM HCL INJ 25 MG/5 ML VIAL IV ONE (17:24)
[2020-05-03] MEDS ORDERED: DILTIAZEM HCL INJ 25 MG/5 ML VIAL ONE (17:25)
[2020-05-03] MEDS ORDERED: DILTIAZEM HCL/D5W 125 MG/125 ML RTUINJ IV ONE (18:00)
[2020-05-03] MEDS ORDERED: DILTIAZEM HCL/D5W 125 MG/125 ML RTUINJ IV PRN (18:03)
--- NOTE | 2020-05-03 20:05 | EKG REPORT ---
SEVERITY:- ABNORMAL ECG - ATRIAL FIBRILLATION, V-RATE 104-155 : Confirmed by: Eldon Fraser MD 03-May-2020 20:04:45
[2020-05-03] MEDS: DONEPEZIL HCL 5 MG TABLET PO SCH (22:09)
--- NOTE | 2020-05-03 22:42 | XCELERA REPORT ---
[address] [address] Transthoracic Echocardiogram Report Name: MATILDE MARINO Age: 89 yrs Gender: Male : 1930 Patient Status: Inpatient [facility] Study Date: 05/03/2020 08:22 PM Height: 70 in Weight: 164 lb BSA: 1.9 m2 Procedure: A two-dimensional transthoracic echocardiogram with color flow and Doppler was performed. The study was technically difficult with many images being suboptimal in quality. Reason For Study: AF History: Atrial Fibrillation. Ordering Physician: JULIET GONZALEZ Performed By: Gabriella Pak Interpretation Summary The left ventricle is normal in size. There is normal left ventricular wall thickness. LV EF is 65% Left ventricular systolic function is normal. Doppler measurements suggest impaired left ventricular relaxation, which is associated with grade I/IV or mild diastolic dysfunction The left ventricular wall motion is normal. There is no thrombus. The right ventricle is normal in size and function. The right ventricle is not well visualized secondary to technical limitations The right atrium is normal. The left atrial size is normal. Cannot assess ASD,VSD,or PFO. There is no evidence of mitral valve prolapse. There is no vegetation seen on the mitral valve. There is no mitral valve stenosis. There is a mild amount of mitral regurgitation There is no aortic valvular vegetation. There is no aortic valve stenosis There is no LVOT obstruction. There is a trace to mild amount of aortic regurgitation There is no tricuspid stenosis. There is a trace amount of tricuspid regurgitation Tricuspid regurgitation jet envelope not well defined to measure RV systolic pressure accurately. The pulmonic valve is not well visualized. The aortic root is not well visualized but is probably normal size. The inferior vena cava was not well visualized There is no pericardial effusion. MMode/2D Measurements & Calculations RVDd: 2.8 cm LVIDd: 4.9 cm FS: 41.3 % Ao root diam: 4.0 cm IVSd: 0.94 cm LVIDs: 2.9 cm EDV(Teich): 114.7 ml Ao root area: 12.3 cm2 LVPWd: 0.91 cm ESV(Teich): 32.1 ml LA dimension: 3.1 cm EF(Teich): 72.0 % Doppler Measurements & Calculations MV E max dominique: MV P1/2t max dominique: Ao V2 max: AI max dominique: 56.8 cm/sec 51.6 cm/sec 101.8 cm/sec 162.9 cm/sec MV A max dominique: MV P1/2t: 79.3 msec Ao max P.1 mmHg AI max P.5 cm/sec MVA(P1/2t): 2.8 cm2 10.6 mmHg MV E/A: 0.75 MV dec slope: AI dec slope: 67.9 cm/sec2 190.6 cm/sec2 AI P1/2t: MV dec time: 0.20 sec 702.9 msec LV V1 max PG: PA V2 max: AV P1/2t-pr_phl: MV P1/2t-pr_phl: 3.4 mmHg 64.7 cm/sec 702.9 msec 79.3 msec LV V1 max: PA max P.7 mmHg 91.9 cm/sec Left Ventricle The left ventricle is normal in size. There is normal left ventricular wall thickness. LV EF is 65%. Left ventricular systolic function is normal. Doppler measurements suggest impaired left ventricular relaxation, which is associated with grade I/IV or mild diastolic dysfunction. The left ventricular wall motion is normal. There is no thrombus. Right Ventricle The right ventricle is normal in size and function. The right ventricle is not well visualized secondary to technical limitations. Atria The right atrium is normal. The left atrial size is normal. Cannot assess ASD,VSD,or PFO. Mitral Valve There is no evidence of mitral valve prolapse. There is no vegetation seen on the mitral valve. There is no mitral valve stenosis. There is a mild amount of mitral regurgitation. Aortic Valve There is no aortic valvular vegetation. There is no aortic valve stenosis. There is no LVOT obstruction. There is a trace to mild amount of aortic regurgitation. Tricuspid Valve There is no tricuspid stenosis. There is a trace amount of tricuspid regurgitation. Tricuspid regurgitation jet envelope not well defined to measure RV systolic pressure accurately. Pulmonic Valve The pulmonic valve is not well visualized. Great Vessels The aortic root is not well visualized but is probably normal size. The inferior vena cava was not well visualized. Effusions There is no pericardial effusion. : JULIET GONZALEZ Lakshmi
[2020-05-04] MEDS: IPRATROPIUM/ALBUTEROL 0.5-2.5 MG/3 ML AMPUL NEB SCH ×3 (00:15→15:49)
[2020-05-04] MEDS: HEPARIN SOD (PORCINE) 5,000 UNIT/ML 1 ML VIAL SUBCUT SCH (06:03)
[2020-05-04] MEDS: HYDROCORTISONE SOD SUCCINATE INJ/PF 100 MG/2 ML SDV IV SCH ×3 (06:03→21:49)
[2020-05-04] MEDS: PANTOPRAZOLE SODIUM 20 MG TABLET.DR PO SCH (06:03)
[2020-05-04 07:04] LABS: HEMATOCRIT 33.1 % (37.9-51.0); HEMOGLOBIN 11.1 g/dL (13.5-17.0); MEAN CORPUSCULAR HEMOGLOBIN 32.3 pg (27.0-33.4); MEAN CORPUSCULAR HGB CONC 33.5 g/dL (32.0-36.0); MEAN CORPUSCULAR VOLUME 96 fl (80-97); PLATELET COUNT 286 10^3/uL (150-450); RED BLOOD COUNT 3.44 10^6/uL (4.35-5.55); RED CELL DISTRIBUTION WIDTH 14.2 % (11.5-14.0); WHITE BLOOD COUNT 26.1 10^3/uL (4.0-10.5)
[2020-05-04 07:20] LABS: ALBUMIN 2.2 g/dL (3.5-5.0); ALKALINE PHOSPHATASE 64 U/L (38-126); ANION GAP 8 (5-19); ASPARTATE AMINO TRANSFERASE 22 U/L (17-59); BILIRUBIN,TOTAL 0.3 mg/dL (0.2-1.3); BLOOD UREA NITROGEN 33 mg/dL (7-20); CALCIUM 8.3 mg/dL (8.4-10.2); CARBON DIOXIDE 22 mmol/L (22-30); CHLORIDE 104 mmol/L (98-107); GLUCOSE 130 mg/dL (75-110); POTASSIUM 4.1 mmol/L (3.6-5.0); TOTAL PROTEIN 4.8 g/dL (6.3-8.2)
[2020-05-04 07:26] LABS: ABSOLUTE LYMPHOCYTES# (MANUAL) 0.8 10^3/uL (0.5-4.7); ABSOLUTE MONOCYTES # (MANUAL) 0.5 10^3/uL (0.1-1.4); BAND NEUTROPHILS % (MANUAL) 3 % (3-5); BASOPHILS % (MANUAL) 0 % (0-2); EOSINOPHILS % (MANUAL) 0 % (0-6); LYMPHOCYTES % (MANUAL) 3 % (13-45); MONOCYTES % (MANUAL) 2 % (3-13); SEGMENTED NEUTROPHILS % (MAN) 92 % (42-78); TOTAL CELLS COUNTED 100
[2020-05-04 07:27] LABS: ANISOCYTOSIS SLIGHT; BURR CELLS SLIGHT; OVALOCYTES SLIGHT; PLATELET COMMENT ADEQUATE; TOXIC GRANULATION 1+
[2020-05-04] MEDS: ZINC SULFATE 220 MG CAPSULE PO SCH (09:10)
[2020-05-04] MEDS: LORATADINE 10 MG TABLET PO SCH (09:10)
[2020-05-04] MEDS: MEMANTINE HCL 10 MG TABLET PO SCH ×2 (09:10→17:18)
[2020-05-04] MEDS: CHOLECALCIFEROL (D3) 1,000 UNIT (25 MCG) TABLET PO SCH (09:10)
[2020-05-04] MEDS: DOCUSATE SODIUM 100 MG CAPSULE PO SCH ×2 (09:10→17:06)
[2020-05-04] MEDS: ASCORBIC ACID 500 MG TABLET PO SCH ×2 (09:10→17:18)
[2020-05-04] MEDS: ASPIRIN 81 MG TABLET, ENT COATED PO SCH (09:10)
[2020-05-04] MEDS: CYANOCOBALAMIN (VITAMIN B-12) 1,000 MCG TABLET PO SCH (09:11)
[2020-05-04] MEDS: FLUTICASONE NASAL SPRAY 50 MCG/SPRY 120 SPRAY/16 GM NASL SCH (09:11)
[2020-05-04] MEDS: TAMSULOSIN HCL 0.4 MG CAP.SR.24H PO SCH (09:11)
[2020-05-04] MEDS: MELOXICAM 7.5 MG TABLET PO SCH (09:11)
[2020-05-04] MEDS: SENNOSIDES/DOCUSATE 8.6-50 MG 1 EACH TABLET PO SCH (09:11)
[2020-05-04] MEDS: FOLIC ACID 1 MG TABLET PO SCH (09:11)
[2020-05-04] MEDS: ENOXAPARIN SODIUM INJ 80 MG/0.8 ML DISP.SYRIN SUBCUT SCH ×2 (09:20→21:49)
[2020-05-04] MEDS: DILTIAZEM HCL 120 MG CAP.SR.24H PO SCH ×2 (10:52→21:46)
--- NOTE | 2020-05-04 13:05 | PDOC PROGRESS REPORT ---
Subjective Progress Note for:: 05/04/20 Subjective:: 89 year old male [facility] resident with a past medical history of dementia, COPD and GERD. He presents with fever of unknown duration. In the emergency department he is found to have hypotension, tachypnea and hypoxia with hyponatremia, presumed acute renal failure leukocytosis and elevated troponin with unremarkable EKG. And a left lower lobe infiltrate. Patient is intermittently cooperative, an extraordinarily poor historian and oriented to self only. He denies pain, nausea vomiting or shortness of breath. He started on empiric antibiotics and referred to the hospitalist for admission. 05/03/[id number]-pwja-old male [facility] resident with history of dementia, COPD admitted with hypotension, tachycardia, hypoxia and hyponatremia. WBC count went up to 28,000 today. COVID test is pending. Constantly trying to come out of the bed nurses have difficulty keep him in the bed. 05/04/2065-08-ihbp-old male with history of dementia admitted for hypotension tachycardia and hypoxia. Call with test is pending. Urine culture is positive for Klebsiella. Plan is to continue cefepime. Patient went into A. fib with RVR yesterday converted to sinus rhythm last night. Cardiology consult was done started on Cardizem CD 120 mg twice a day. Reason For Visit: PNA SEPSIS ARF Physical Exam Vital Signs: Temp Pulse Resp BP Pulse Ox 97.6 F 89 20 125/60 93 05/04/20 10:56 05/04/20 11:00 05/04/20 10:56 05/04/20 11:00 05/04/20 10:56 Intake & Output 05/03/20 05/04/20 05/05/20 06:59 06:59 06:59 Intake Total 3916 1950 300 Output Total 500 2400 150 Balance 3416 -450 150 Weight 74.6 kg 72.6 kg General appearance: PRESENT: no acute distress, well-developed Head exam: PRESENT: atraumatic Eye exam: PRESENT: PERRLA Ear exam: PRESENT: normal external ear exam Mouth exam: PRESENT: moist, tongue midline Teeth exam: PRESENT: poor dentation Neck exam: ABSENT: carotid bruit, JVD, lymphadenopathy, thyromegaly Respiratory exam: PRESENT: decreased breath sounds Cardiovascular exam: PRESENT: RRR. ABSENT: diastolic murmur, rubs, systolic murmur GI/Abdominal exam: PRESENT: normal bowel sounds, soft. ABSENT: distended, guarding, mass, organolmegaly, rebound, tenderness Rectal exam: PRESENT: deferred Extremities exam: PRESENT: full ROM. ABSENT: calf tenderness, clubbing, pedal edema Neurological exam: PRESENT: alert, awake, oriented to person, oriented to place, oriented to time, oriented to situation, CN II-XII grossly intact. ABSENT: motor sensory deficit Psychiatric exam: PRESENT: appropriate affect, normal mood. ABSENT: homicidal ideation, suicidal ideation Skin exam: PRESENT: dry, intact, warm. ABSENT: cyanosis, rash Results Laboratory Results: 05/04/20 06:13 05/04/20 06:13 05/04/20 05/04/20 06:13 06:13 WBC 26.1 H RBC 3.44 L Hgb 11.1 L Hct 33.1 L MCV 96 MCH 32.3 MCHC 33.5 RDW 14.2 H Plt Count 286 Seg Neutrophils % Not Reportable Sodium 133.6 L Potassium 4.1 Chloride 104 Carbon Dioxide 22 Anion Gap 8 BUN 33 H Creatinine 1.25 Est GFR ( Amer) > 60 Glucose 130 H Calcium 8.3 L Magnesium 2.2 Total Bilirubin 0.3 AST 22 Alkaline Phosphatase 64 Total Protein 4.8 L Albumin 2.2 L 05/02/20 18:34 Catheterized Urine Urine Culture - Final Klebsiella Pneumoniae 05/02/20 05/02/20 05/03/20 17:28 17:28 00:38 Creatine Kinase 310 H Troponin I 0.703 0.422 05/03/20 05/03/20 05/03/20 07:57 10:21 20:07 Creatine Kinase Troponin I Cancelled 0.240 0.201 Impressions: Chest X-Ray 05/02/20 18:11 IMPRESSION: Elevated left hemidiaphragm. Cannot exclude left lower lobe pneumonia. Abdomen/Pelvis CT 05/02/20 19:39 IMPRESSION: Artifact from the patient's arms. Imaging is degraded by patient motion, with resultant artifact. The best possible images were obtained. Bibasilar airspace disease left greater than right. Most of this is atelectasis. There is a small consolidated component left lower lobe. Possibly pneumonia is raised. Cholelithiasis without acute cholecystitis. No acute intra-abdominal process is seen. Assessment and Plan - Diagnosis (1) Left lower lobe pneumonia Qualifiers: Pneumonia type: due to unspecified organism Qualified Code(s): J18.9 - Pneumonia, unspecified organism Is this a current diagnosis for this admission?: Yes Plan: Pneumonia care set, significant suspicion of COVID, follow-up labs otherwise empiric antibiotics, follow-up CBC, blood culture and COVID testing. 05/03/2020-WBC count went up to 28,000 today presently on ceftriaxone and IV vancomycin. Call with test is pending. Latest temperature is 98.5 with blood pressure 134/75 respiratory rate is 20 pulse ox is 95% room air. Plan is to continue the IV antibiotic therapy waiting for the culture reports. 05/04/2020-WBC count is 26,000 today urine culture is positive for Klebsiella pneumonia receiving cefepime and vancomycin. Temperature today is 98. Plan is to continue the IV antibiotic therapy at this time. blood Cultures are negative so far. (2) Shortness of breath Is this a current diagnosis for this admission?: Yes Plan: Secondary to #1, incentive spirometry, flutter valve as tolerated, supplemental oxygen, albuterol and Atrovent, 05/03/2020-pulse ox is 95% on room air not in shortness of breath at the time of my examination. (3) Acute renal failure (ARF) Is this a current diagnosis for this admission?: Yes Plan: Likely secondary to #1, IV fluid challenge, avoid nephrotoxic meds and doses follow-up chemistry 05/03/2020-serum creatinine is 2.26 at the time of admission with IV fluids to 1.52. Acute kidney injury is resolving. 05/04/2020-serum creatinine today is 1.25. Acute kidney injury is resolving. (4) Elevated troponin I level Is this a current diagnosis for this admission?: Yes Plan: Likely secondary to #1, complicated by acute renal failure, denies cardiac symptoms, EKG unremarkable, trend serial cardiac enzymes. 05/03/2020-patient denies any chest pains on admission troponin is 0.7 latest troponin is 0.2. (5) Dementia Is this a current diagnosis for this admission?: Yes Plan: Continue outpatient regiment and supportive care. (6) Hyponatremia Is this a current diagnosis for this admission?: Yes Plan: 05/03/2020-serum sodium is 128.6 admission with IV fluids improved to 131.3. Hyponatremia most likely secondary to dehydration. Plan is to repeat the labs tomorrow. 05/04/2020-serum sodium today is 133.6. Hyponatremia is resolving. Patient is receiving IV fluids at this time.
--- NOTE | 2020-05-04 13:34 | EKG REPORT ---
SEVERITY:- OTHERWISE NORMAL ECG - SINUS RHYTHM BORDERLINE LEFT AXIS DEVIATION : Confirmed by: Eldon Fraser MD 04-May-2020 13:33:00
[2020-05-04] MEDS: VANCOMYCIN HCL 750 MG in DEXTROSE 5%-WATER 250 ML IV SCH (17:18)
[2020-05-04] MEDS: CEFTRIAXONE 1 GM/D5W RTU 1 GM/50 ML RTUPB IV SCH (17:18)
[2020-05-04] MEDS: DONEPEZIL HCL 5 MG TABLET PO SCH (21:47)
[2020-05-05] MEDS: IPRATROPIUM/ALBUTEROL 0.5-2.5 MG/3 ML AMPUL NEB SCH ×2 (00:12→08:09)
[2020-05-05 05:36] LABS: HEMATOCRIT 30.7 % (37.9-51.0); HEMOGLOBIN 10.4 g/dL (13.5-17.0); MEAN CORPUSCULAR HEMOGLOBIN 32.2 pg (27.0-33.4); MEAN CORPUSCULAR HGB CONC 33.8 g/dL (32.0-36.0); MEAN CORPUSCULAR VOLUME 96 fl (80-97); PLATELET COUNT 324 10^3/uL (150-450); RED BLOOD COUNT 3.22 10^6/uL (4.35-5.55); RED CELL DISTRIBUTION WIDTH 14.5 % (11.5-14.0); WHITE BLOOD COUNT 24.6 10^3/uL (4.0-10.5)
[2020-05-05] MEDS: PANTOPRAZOLE SODIUM 20 MG TABLET.DR PO SCH (05:55)
[2020-05-05] MEDS: HYDROCORTISONE SOD SUCCINATE INJ/PF 100 MG/2 ML SDV IV SCH ×2 (05:55→17:35)
[2020-05-05 05:57] LABS: ALBUMIN 2.3 g/dL (3.5-5.0); ALKALINE PHOSPHATASE 64 U/L (38-126); ANION GAP 5 (5-19); ASPARTATE AMINO TRANSFERASE 28 U/L (17-59); BILIRUBIN,TOTAL 0.2 mg/dL (0.2-1.3); BLOOD UREA NITROGEN 37 mg/dL (7-20); CALCIUM 8.8 mg/dL (8.4-10.2); CARBON DIOXIDE 22 mmol/L (22-30); CHLORIDE 106 mmol/L (98-107); GLUCOSE 136 mg/dL (75-110); POTASSIUM 3.9 mmol/L (3.6-5.0); TOTAL PROTEIN 4.9 g/dL (6.3-8.2)
[2020-05-05 06:03] LABS: ABSOLUTE LYMPHOCYTES# (MANUAL) 1.5 10^3/uL (0.5-4.7); BAND NEUTROPHILS % (MANUAL) 1 % (3-5); BASOPHILS % (MANUAL) 0 % (0-2); EOSINOPHILS % (MANUAL) 0 % (0-6); LYMPHOCYTES % (MANUAL) 6 % (13-45); METAMYELOCYTES % (MANUAL) 1 % (0-1); MONOCYTES % (MANUAL) 4 % (3-13); PLATELET COMMENT ADEQUATE; RBC MORPHOLOGY COMMENT NORMO-CYTIC/CHROMIC; SEGMENTED NEUTROPHILS % (MAN) 88 % (42-78); TOTAL CELLS COUNTED 100; TOXIC GRANULATION 1+
[2020-05-05] MEDS: DOCUSATE SODIUM 100 MG CAPSULE PO SCH ×2 (09:09→17:29)
[2020-05-05] MEDS: ENOXAPARIN SODIUM INJ 80 MG/0.8 ML DISP.SYRIN SUBCUT SCH ×2 (09:10→21:19)
[2020-05-05] MEDS: FLUTICASONE NASAL SPRAY 50 MCG/SPRY 120 SPRAY/16 GM NASL SCH (09:10)
--- NOTE | 2020-05-05 09:11 | PDOC PROGRESS REPORT ---
Subjective Progress Note for:: 05/05/20 Subjective:: 89 year old male [facility] resident with a past medical history of dementia, COPD and GERD. He presents with fever of unknown duration. In the emergency department he is found to have hypotension, tachypnea and hypoxia with hyponatremia, presumed acute renal failure leukocytosis and elevated troponin with unremarkable EKG. And a left lower lobe infiltrate. Patient is intermittently cooperative, an extraordinarily poor historian and oriented to self only. He denies pain, nausea vomiting or shortness of breath. He started on empiric antibiotics and referred to the hospitalist for admission. 05/03/[id number]-old male [facility] resident with history of dementia, COPD admitted with hypotension, tachycardia, hypoxia and hyponatremia. WBC count went up to 28,000 today. COVID test is pending. Constantly trying to come out of the bed nurses have difficulty keep him in the bed. 05/04/2054-10-xksk-old male with history of dementia admitted for hypotension tachycardia and hypoxia. Covid test is pending. Urine culture is positive for Klebsiella. Plan is to continue cefepime. Patient went into A. fib with RVR yesterday converted to sinus rhythm last night. Cardiology consult was done started on Cardizem CD 120 mg twice a day. 05/05/[id number]-snbd-old male came from [facility] with hypoxia tachypnea and hypotension hypotension is resolving with a blood pressure of 115/60, heart rate in the 80s, pulse ox is 93% on 1/2 L. Blood cultures are negative so far urine culture is positive for Klebsiella, COVID test is negative. WBC count is still high at 24,600. IV cefepime and vancomycin plan is to continue the IV antibiotic therapy at this time. Patient is on IV hydrocortisone 100 mg every 8 hours plan is to decrease the dose to 50 every 12 hours. Reason For Visit: PNA SEPSIS ARF Physical Exam Vital Signs: Temp Pulse Resp BP Pulse Ox 97.8 F 85 16 128/71 H 91 L 05/05/20 07:58 05/05/20 07:58 05/05/20 07:58 05/05/20 07:58 05/05/20 07:58 Intake & Output 05/04/20 05/05/20 05/06/20 06:59 06:59 06:59 Intake Total 1950 841 Output Total 2400 300 Balance -450 541 Weight 72.6 kg 74.9 kg General appearance: PRESENT: no acute distress, thin Head exam: PRESENT: atraumatic Eye exam: PRESENT: PERRLA Mouth exam: PRESENT: moist, tongue midline Teeth exam: PRESENT: poor dentation Neck exam: ABSENT: carotid bruit, JVD, lymphadenopathy, thyromegaly Respiratory exam: PRESENT: decreased breath sounds Cardiovascular exam: PRESENT: RRR. ABSENT: diastolic murmur, rubs, systolic murmur GI/Abdominal exam: PRESENT: normal bowel sounds, soft. ABSENT: distended, guarding, mass, organolmegaly, rebound, tenderness Rectal exam: PRESENT: deferred Extremities exam: PRESENT: full ROM. ABSENT: calf tenderness, clubbing, pedal edema Neurological exam: PRESENT: alert, awake, oriented to person, oriented to place, oriented to time, oriented to situation, CN II-XII grossly intact. ABSENT: motor sensory deficit Psychiatric exam: PRESENT: appropriate affect, normal mood. ABSENT: homicidal ideation, suicidal ideation Results Laboratory Results: 05/05/20 05:22 05/05/20 05:22 05/05/20 05/05/20 05:22 05:22 WBC 24.6 H RBC 3.22 L Hgb 10.4 L Hct 30.7 L MCV 96 MCH 32.2 MCHC 33.8 RDW 14.5 H Plt Count 324 Seg Neutrophils % Not Reportable Sodium 133.3 L Potassium 3.9 Chloride 106 Carbon Dioxide 22 Anion Gap 5 BUN 37 H Creatinine 1.30 H Est GFR ( Amer) > 60 Glucose 136 H Calcium 8.8 Magnesium 2.3 Total Bilirubin 0.2 AST 28 Alkaline Phosphatase 64 Total Protein 4.9 L Albumin 2.3 L 05/02/20 18:34 Catheterized Urine Urine Culture - Final Klebsiella Pneumoniae 05/02/20 05/02/20 05/03/20 17:28 17:28 00:38 Creatine Kinase 310 H Troponin I 0.703 0.422 05/03/20 05/03/20 05/03/20 07:57 10:21 20:07 Creatine Kinase Troponin I Cancelled 0.240 0.201 Impressions: Chest X-Ray 05/02/20 18:11 IMPRESSION: Elevated left hemidiaphragm. Cannot exclude left lower lobe pneumonia. Abdomen/Pelvis CT 05/02/20 19:39 IMPRESSION: Artifact from the patient's arms. Imaging is degraded by patient motion, with resultant artifact. The best possible images were obtained. Bibasilar airspace disease left greater than right. Most of this is atelectasis. There is a small consolidated component left lower lobe. Possibly pneumonia is raised. Cholelithiasis without acute cholecystitis. No acute intra-abdominal process is seen. Assessment and Plan - Diagnosis (1) Left lower lobe pneumonia Qualifiers: Pneumonia type: due to unspecified organism Qualified Code(s): J18.9 - Pneumonia, unspecified organism Is this a current diagnosis for this admission?: Yes Plan: Pneumonia care set, significant suspicion of COVID, follow-up labs otherwise empiric antibiotics, follow-up CBC, blood culture and COVID testing. 05/03/2020-WBC count went up to 28,000 today presently on ceftriaxone and IV vancomycin. Call with test is pending. Latest temperature is 98.5 with blood pressure 134/75 respiratory rate is 20 pulse ox is 95% room air. Plan is to continue the IV antibiotic therapy waiting for the culture reports. 05/04/2020-WBC count is 26,000 today urine culture is positive for Klebsiella pneumonia receiving cefepime and vancomycin. Temperature today is 98. Plan is to continue the IV antibiotic therapy at this time. blood Cultures are negative so far. 05/05/20-WBC count is 24,600 patient is on IV hydrocortisone plan is to decrease the dose from today. Afebrile. Blood pressures are stable. Urine culture is positive for Klebsiella to discontinue IV Vanco and to continue cefepime (2) Shortness of breath Is this a current diagnosis for this admission?: Yes Plan: Secondary to #1, incentive spirometry, flutter valve as tolerated, supplemental oxygen, albuterol and Atrovent, 05/03/2020-pulse ox is 95% on room air not in shortness of breath at the time of my examination. 05/05/2020-pulse ox is 93% on 1 end of liters. Oxygen requirements are decreasing. (3) Acute renal failure (ARF) Is this a current diagnosis for this admission?: Yes Plan: Likely secondary to #1, IV fluid challenge, avoid nephrotoxic meds and doses follow-up chemistry 05/03/2020-serum creatinine is 2.26 at the time of admission with IV fluids to 1.52. Acute kidney injury is resolving. 05/04/2020-serum creatinine today is 1.25. Acute kidney injury is resolving. 05/05/2020-serum creatinine today is 1.3 stable. (4) Elevated troponin I level Is this a current diagnosis for this admission?: Yes (5) Dementia Is this a current diagnosis for this admission?: Yes Plan: Continue outpatient regiment and supportive care. (6) Hyponatremia Is this a current diagnosis for this admission?: Yes Plan: 05/03/2020-serum sodium is 128.6 admission with IV fluids improved to 131.3. Hyponatremia most likely secondary to dehydration. Plan is to repeat the labs tomorrow. 05/04/2020-serum sodium today is 133.6. Hyponatremia is resolving. Patient is receiving IV fluids at this time. 05/05/2020-serum sodium is around 133. Patient has persistent hyponatremia. Receiving IV fluids at this time. Patient is not on IV fluids at this time.
[2020-05-05] MEDS: SENNOSIDES/DOCUSATE 8.6-50 MG 1 EACH TABLET PO SCH (09:14)
[2020-05-05] MEDS: MELOXICAM 7.5 MG TABLET PO SCH (09:14)
[2020-05-05] MEDS: MEMANTINE HCL 10 MG TABLET PO SCH ×2 (09:15→17:35)
[2020-05-05] MEDS: TAMSULOSIN HCL 0.4 MG CAP.SR.24H PO SCH (09:15)
[2020-05-05] MEDS: FOLIC ACID 1 MG TABLET PO SCH (09:15)
[2020-05-05] MEDS: CYANOCOBALAMIN (VITAMIN B-12) 1,000 MCG TABLET PO SCH (09:15)
[2020-05-05] MEDS: DILTIAZEM HCL 120 MG CAP.SR.24H PO SCH ×2 (09:15→21:19)
[2020-05-05] MEDS: CHOLECALCIFEROL (D3) 1,000 UNIT (25 MCG) TABLET PO SCH (09:15)
[2020-05-05] MEDS: LORATADINE 10 MG TABLET PO SCH (09:16)
[2020-05-05] MEDS: ASPIRIN 81 MG TABLET, ENT COATED PO SCH (09:16)
[2020-05-05] MEDS: ASCORBIC ACID 500 MG TABLET PO SCH ×2 (09:16→17:35)
[2020-05-05] MEDS: ZINC SULFATE 220 MG CAPSULE PO SCH (11:22)
--- NOTE | 2020-05-05 15:45 | Progress Note ---
Provider Note Provider Note: CARDIOLOGY PROGRESS NOTE by Dr. Radhika Guthrie on 05/05/2020. SUBJECTIVE: The patient continues to be confused but he is in no acute distress. He continues to be i in sinus rhythm with no recurrence of atrial fibrillation. There is no chest pain shortness of breath. There is no ventricle arrhythmia seen on the monitor. PHYSICAL EXAMINATION: The patient is well-built. In no acute distress. Selected Entries 05/05/20 15:45 Temperature 97.6 F Temperature Oral Source Pulse Rate 82 Respiratory 16 Rate Blood Pressure 138/69 H Blood Pressure 92 Mean BP Location Right Arm BP Position Supine O2 Sat by Pulse 94 Oximetry Oxygen Delivery Room Air Method HEAD: Is atraumatic normocephalic. EYES: Pupils are equal round regular reactive to light accommodation. ENT is negative. NECK: Is supple. There is no JVD. Carotids are equal there is no bruit. There is no lymphadenopathy. There is no goiter. There is no accessory muscle respiration use. Trachea central LUNGS: There is diminished air entry prolonged expiration. There is no wheezing. There is occasional rhonchi. There is dry crackles in the left base. HEART: S1-S2 is heard. There is no S3 gallop. There is no S4 gallop. There is systolic murmur left sternal border and the apex there is no rub. ABDOMEN: Soft. Nontender. There is no paraspinal megaly bowel sounds are well heard. EXTREMITIES: Femorals are well felt. There is no femoral bruits. Leg pulses are well felt. There is no pedal edema. There is no DVT or cellulitis. There is no calf tenderness. ASBESTOS SURVEYOR: At present the patient is oriented x3. There is no focal deficits. PSYCHIATRIC: The patient does not appear to be agitated or anxious, but appears to be demanding. Labs- All tests 24 hr 05/05/20 05/05/20 05/05/20 05:22 05:22 17:12 WBC 24.6 H RBC 3.22 L Hgb 10.4 L Hct 30.7 L MCV 96 MCH 32.2 MCHC 33.8 RDW 14.5 H Plt Count 324 Lymph % (Auto) Not Reportable [place] % (Auto) Not Reportable Eos % (Auto) Not Reportable Baso % (Auto) Not Reportable Absolute Neuts (auto) Not Reportable Absolute Lymphs (auto) Not Reportable Absolute Monos (auto) Not Reportable Absolute Eos (auto) Not Reportable Absolute Basos (auto) Not Reportable Total Counted 100 Seg Neutrophils % Not Reportable Seg Neuts % (Manual) 88 H Band Neutrophils % 1 L Lymphocytes % (Manual) 6 L Monocytes % (Manual) 4 Eosinophils % (Manual) 0 Basophils % (Manual) 0 Metamyelocytes % 1 Abs Neuts (Manual) 22.1 H Abs Lymphs (Manual) 1.5 Abs Monocytes (Manual) 1.0 Absolute Eos (Manual) 0.0 Abs Basophils (Manual) 0.0 Toxic Granulation 1+ Platelet Comment ADEQUATE RBC Morph Comment NORMO-CYTIC/CHROMIC Sodium 133.3 L Potassium 3.9 Chloride 106 Carbon Dioxide 22 Anion Gap 5 BUN 37 H Creatinine 1.30 H Est GFR ( Amer) > 60 Est GFR (MDRD) Non-Af 52 L Glucose 136 H Calcium 8.8 Magnesium 2.3 Total Bilirubin 0.2 Direct Bilirubin 0.0 Neonat Total Bilirubin Not Reportable Neonat Direct Bilirubin Not Reportable Neonat Indirect Bili Not Reportable AST 28 ALT 14 Alkaline Phosphatase 64 Total Protein 4.9 L Albumin 2.3 L Time Trough Drawn 1712 Vancomycin Trough 7.6 Chest X-Ray 05/02/20 18:11 IMPRESSION: Elevated left hemidiaphragm. Cannot exclude left lower lobe pneumonia. Abdomen/Pelvis CT 05/02/20 19:39 IMPRESSION: Artifact from the patient's arms. Imaging is degraded by patient motion, with resultant artifact. The best possible images were obtained. Bibasilar airspace disease left greater than right. Most of this is atelectasis. There is a small consolidated component left lower lobe. Possibly pneumonia is raised. Cholelithiasis without acute cholecystitis. No acute intra-abdominal process is seen. IMPRESSION/RECOMMEnDATION: 1. Elevated troponin I: This is secondary to supply demand mismatch/type II myocardial infarction. This is due to the patient's atrial fibrillation with the fast ventricular response, and the pneumonia. There is no evidence of non- ST elevation SD. The patient appears to be comfortable and not in heart failure and also his EKG is bland. 2. Paroxysmal atrial fibrillation: Patient presents sinus rhythm. Would discontinue the patient's Cardizem drip the patient's the patient [facility] mg p.o. every 12 hours. Patient with his advanced age, dementia and frail build is high risk for bleeding complications. Hence would not recommend chronic anticoagulation. 3. Left lower lobe pneumonia: Continue antibiotics. 4. COPD: Continue anti-COPD treatment. 5. Rheumatoid arthritis by history. 6. Severe dementia. Medications reviewed. Medical regimen and management plan discussed with attending provider. Medications adjusted and new medication started. Medical decision making is of high complexity. 40-minute spent as patient with more than 50% time spent in direct patient care. Discussed the case the medical regimen and management plan with the attending provider. Will follow
[2020-05-05] MEDS: CEFTRIAXONE 1 GM/D5W RTU 1 GM/50 ML RTUPB IV SCH (17:35)
[2020-05-05 17:55] LABS: VANCOMYCIN,TROUGH 7.6 ug/mL (5.0-20.0)
[2020-05-05] MEDS: DONEPEZIL HCL 5 MG TABLET PO SCH (21:19)
--- NOTE | 2020-05-06 02:13 | PDOC CONSULTATION ---
Consultation-Blank Consultation: CARDIOLOGY CONSULTATION by Dr. Radhika Guthrie on 05/04/2020. Patient seen at 11:45 AM. 60 minutes spent on the patient with 50% time spent in direct patient care. CONSULT REQUESTING PHYSICIAN: Dr. Funes, [facility]. REASON FOR CONSULTATION: Paroxysmal atrial fibrillation. HISTORY OF PRESENT ILLNESS: Due to patient's dementia unable to get history from patient. Times the patient seems to be oriented x2. At that time moment when I asked him he states he had no chest pain or discomfort. As per the chart the patient is a 89-year-old male with known history of COPD [facility] and [facility]. He was found to have a left lower lobe pneumonia. Echo with test is negative. The patient sometime last night went into atrial fibrillation with rapid ventricular response and was started on Cardizem drip and at present is converted to sinus rhythm. Hence we will discontinue the patient's Cardizem drip and place the patient on Cardizem p.o. No further history is available. He has no history of prior history of proximal atrial fibrillation or congestive heart failure or coronary artery disease or UT. His troponin I is elevated, but there are no acute EKG changes. Hence no definite clinical evidence of non-ST elevation UT. Past Medical History Pulmonary Medical History: Reports: Chronic Obstructive Pulmonary Disease (COPD) Neurological Medical History: Reports: Other - Dementia GI Medical History: Reports: Gastroesophageal Reflux Disease Musculoskeltal Medical History: Reports: Arthritis - RA Psychiatric Medical History: Reports: Dementia Denies: Depression Social History Information Source: [facility] Records Lives with: [facility] Smoking Status: Former Smoker Electronic Cigarette use?: No Frequency of Alcohol Use: None Drugs: None - Advance Directive Resuscitation Status: Do Not Resuscitate.Aliyah Wood is a surrogate healthcare decision maker. Family History Family History: Other - Unobtainable Parental Family History Reviewed: Yes Children Family History Reviewed: Yes Sibling(s) Family History Reviewed.: Yes Medication/Allergy Home Medications: Alfuzosin HCl [Uroxatral] 10 mg PO DAILY 05/02/20 Aspirin [Ecotrin 81 mg EC Tablet] 81 mg PO DAILY 05/02/20 Cholecalciferol (Vitamin D3) [Vitamin D3 1000 Unit Tablet] 2,000 unit PO DAILY 05/02/20 Cyanocobalamin (Vitamin B-12) [Vitamin B-12 1000 mcg Tablet] 1,000 mcg PO DAILY 05/02/20 Donepezil HCl [Aricept 5 mg Tablet] 10 mg PO QHS 05/02/20 Fluticasone Propionate [Flonase Nasal Axtell 50 Mcg/Axtell 16 gm] 2 spray NASL DAILY 05/02/20 Folic Acid [Folvite 1 mg Tablet] 1 mg PO DAILY 05/02/20 Loratadine [Claritin 10 mg Tablet] 10 mg PO DAILY 05/02/20 Lorazepam [Ativan 0.5 mg Tablet] 0.5 mg PO Q6HP PRN 05/02/20 Meloxicam [Mobic 7.5 mg Tablet] 7.5 mg PO DAILY 05/02/20 Memantine HCl [Namenda 10 mg Tablet] 10 mg PO BID 05/02/20 Methotrexate Sodium [Rheumatrex 2.5 mg Tablet] 5 mg PO FR@1000 05/02/20 Omeprazole 20 mg PO Q6AM 05/02/20 Propylene Glycol/Peg 400 [Systane 0.3-0.4% Eye Drops] 1 drop OU TID 05/02/20 Sennosides/Docusate Sodium [Senna Plus 8.6-50 mg Tablet] 1 tab PO DAILY 05/02/20 Vit A/Vit C/Vit E/Zinc/Copper [Preservision Areds Tablet] 1 tab PO BID 05/02/20 Allergies/Adverse Reactions: gabapentin Allergy (Verified 02/07/19 00:06) lidocaine Allergy (Verified 02/07/19 00:06) meperidine [From Demerol] Allergy (Verified 02/07/19 00:06) Review of Systems ROS unobtainable: Due to mental status. Current Medications Generic Name Dose Route Start Last Admin Trade Name Freq PRN Reason Stop Dose Admin Acetaminophen 650 mg 05/02/20 21:51 Tylenol 325 Mg Tablet PO 06/01/20 21:50 Q4HP PRN FOR PAIN OR TEMP Al Hydrox/Mg Hydrox/Simethicone 30 ml 05/02/20 21:51 Maalox Plus Susp 30 Udcup PO 06/01/20 21:50 Q6HP PRN HEARTBURN Albuterol/Ipratropium 3 ml 05/02/20 21:51 Duoneb 3 Ml Ampul NEB 07/15/20 21:50 [id number] PRN SHORTNESS OF BREATH Albuterol/Ipratropium 3 ml 05/03/20 00:00 05/04/20 15:49 Duoneb 3 Ml Ampul NEB 06/02/20 00:00 3 ml [id number] HIREN Administration Ascorbic Acid 1,000 mg 05/02/20 23:30 05/04/20 17:18 Vitamin C 500 Mg Tablet PO 06/01/20 23:29 1,000 mg BID HIREN Administration Aspirin 81 mg 05/03/20 10:00 05/04/20 09:10 Ecotrin 81 Mg Ec Tablet PO 06/02/20 09:59 81 mg DAILY HIREN Administration Cholecalciferol 2,000 unit 05/03/20 10:00 05/04/20 09:10 Vitamin D3 1000 Unit Tablet PO 06/02/20 09:59 2,000 unit DAILY HIREN Administration Cyanocobalamin 1,000 mcg 05/03/20 10:00 05/04/20 09:11 Vitamin B-12 1000 Mcg Tablet PO 06/02/20 09:59 1,000 mcg DAILY HIREN Administration Diltiazem HCl 120 mg 05/04/20 11:00 05/04/20 21:46 Cardizem Cd 120 Mg Capsule PO 06/03/20 10:59 120 mg Q12 HIREN Administration Docusate Sodium 100 mg 05/03/20 10:00 05/04/20 17:06 Colace 100 Mg Capsule PO 06/02/20 09:59 Not Given BID HIREN Donepezil HCl 10 mg 05/02/20 22:00 05/04/20 21:47 Aricept 5 Mg Tablet PO 06/01/20 21:59 10 mg QHS HIREN Administration Enoxaparin Sodium 75 mg 05/04/20 10:00 05/04/20 21:49 Lovenox Inj 80 Mg/0.8 Ml Disp.Syrin SUBCUT 06/03/20 09:59 Not Given Q12 [facility] Fluticasone Propionate 2 spray 05/03/20 10:00 05/04/20 09:11 Flonase Nasal Axtell 50 Mcg/Axtell 16 Gm NASL 06/02/20 09:59 Not Given DAILY HIREN Folic Acid 1 mg 05/03/20 10:00 05/04/20 09:11 Folvite 1 Mg Tablet PO 06/02/20 09:59 1 mg DAILY HIREN Administration Hydrocortisone Sodium Succinate 100 mg 05/02/20 22:00 05/04/20 21:49 Solu-Cortef Inj/Pf 100 Mg/ 2 Ml Sdv IV 06/01/20 21:59 100 mg Q8 HIREN Administration Ceftriaxone Sodium/Dextrose 1 gm in 50 mls @ 100 mls/hr 05/03/20 18:00 05/04/20 17:57 Rocephin Rtu 1 Gm/D5w 50 Ml Premix IV 05/10/20 17:59 Infused QPM HIREN Infusion Vancomycin HCl 750 mg/ 250 mls @ 166.667 mls/hr 05/03/20 18:00 05/04/20 19:36 Dextrose IV 05/10/20 17:59 Infused QPM HIREN Infusion Loratadine 10 mg 05/03/20 10:00 05/04/20 09:10 Claritin 10 Mg Tablet PO 06/02/20 09:59 10 mg DAILY HIREN Administration Lorazepam 0.5 mg 05/02/20 21:54 05/03/20 17:09 Ativan 0.5 Mg Tablet PO 05/09/20 21:53 0.5 mg Q6HP PRN Administration ANXIETY/AGITATION Magnesium Hydroxide 30 ml 05/02/20 21:51 Milk Of Magnesia 30 Ml Udcup PO 06/01/20 21:50 HSP PRN FOR CONSTIPATION Meloxicam 7.5 mg 05/03/20 10:00 05/04/20 09:11 Mobic 7.5 Mg Tablet PO 06/02/20 09:59 7.5 mg DAILY HIREN Administration Memantine 10 mg 05/03/20 10:00 05/04/20 17:18 Namenda 10 Mg Tablet PO 06/02/20 09:59 10 mg BID HIREN Administration Methotrexate 5 mg 05/06/20 10:00 Rheumatrex 2.5 Mg Tablet PO 06/05/20 09:59 FR@1000 HIREN Pantoprazole Sodium 20 mg 05/04/20 06:00 05/04/20 06:[address] Tablet PO 06/03/20 05:59 20 mg Q6AM HIREN Administration Patient Own Medication 1 drop 05/03/20 10:00 Propylene Glycol/Peg 400 [Systane 0.3-0.4% Eye Drops] OU 06/02/20 09:59 TID HIREN Patient Own Medication 1 tab 05/03/20 10:00 Vit A/Vit C/Vit E/Zinc/Copper [Preservision Areds Tablet] PO 06/02/20 09:59 BID HIREN Senna/Docusate Sodium 1 each 05/03/20 10:00 05/04/20 09:11 Senna Plus Tablet PO 06/02/20 09:59 1 each DAILY HIREN Administration Tamsulosin HCl 0.4 mg 05/04/20 10:00 05/04/20 09:11 Flomax 0.4 Mg Cap.Sr PO 06/03/20 09:59 0.4 mg DAILY HIREN Administration Zinc Sulfate 440 mg 05/02/20 23:30 05/04/20 09:10 Zinc-220 Capsule PO 06/01/20 23:29 440 mg DAILY HIREN Administration Discontinued Medications Generic Name Dose Route Start Last Admin Trade Name Freq PRN Reason Stop Dose Admin Aspirin 325 mg 05/02/20 18:47 05/02/20 19:08 Aspirin 325 Mg Tablet PO 05/02/20 18:48 325 mg NOW ONE Administration Azithromycin 500 mg 05/02/20 18:22 05/02/20 18:45 Zithromax Inj 500 Mg Vial IV 05/02/20 18:23 500 mg IVBAG (ED) ONE Administration Diltiazem HCl 10 mg 05/03/20 17:24 05/03/20 17:38 Cardizem Inj 25 Mg/5 Ml Vial IV 05/03/20 17:25 10 mg NOW ONE Administration Diltiazem HCl Confirm 05/03/20 17:25 05/03/20 17:37 Cardizem Inj 25 Mg/5 Ml Vial Administered 05/03/20 17:26 Not Given Dose 25 mg .ROUTE .STK-MED ONE Heparin Sodium (Porcine) 5,000 unit 05/02/20 22:00 05/04/20 06:03 Heparin Inj 5,000 Units/Ml 1 Ml Vial SUBCUT 06/01/20 21:59 5,000 unit Q8 HIREN Administration Sodium Chloride 1,000 mls @ 0 mls/hr 05/02/20 17:42 05/02/20 19:37 Nacl 0.9% 1000 Ml Iv Soln IV 05/02/20 17:43 Infused BOLUS ONE Infusion Wide Open Ceftriaxone Sodium/Dextrose 1 gm in 50 mls @ 100 mls/hr 05/02/20 19:00 05/02/20 19:09 Rocephin Rtu 1 Gm/D5w 50 Ml Premix IV 05/02/20 19:29 Infused NOW ONE Infusion Lactated Ringer's 1,000 mls @ 0 mls/hr 05/02/20 18:14 05/02/20 20:35 Lactated Ringers 1000 Ml Iv Soln IV Infused X 2 BAGS PRN Infusion THIS MED IS NOT "PRN" Wide Open Sodium Chloride 1,000 mls @ 250 mls/hr 05/02/20 22:00 05/03/20 08:49 Nacl 0.9% 1000 Ml Iv Soln IV Infused CONTINUOUS PRN Infusion Diltiazem HCl Confirm 05/03/20 18:00 05/03/20 18:48 Cardizem Rtu Inj 125 Mg-D5w 125 Ml Premix Administered 05/03/20 18:01 Not Given Dose 125 mg in 125 mls @ ud IV .STK-MED ONE Diltiazem HCl 125 mg in 125 mls @ 0 mls/hr 05/03/20 18:03 05/04/20 12:10 Cardizem Rtu Inj 125 Mg-D5w 125 Ml Premix IV 05/04/20 12:00 Infused CONTINUOUS PRN Titration THIS MED IS NOT "PRN" Protocol Titrate Ibuprofen 600 mg 05/02/20 18:22 05/02/20 18:57 Motrin 600 Mg Tablet PO 05/02/20 18:23 600 mg NOW ONE Administration Metoprolol Tartrate Confirm 05/03/20 16:56 05/03/20 17:09 Lopressor Inj/Pf 5 Mg/5 Ml Sdv Administered 05/03/20 16:57 5 mg Dose Administration 5 mg IV .STK-MED ONE Metoprolol Tartrate 5 mg 05/03/20 18:00 05/03/20 17:38 Lopressor Inj/Pf 5 Mg/5 Ml Sdv IV 05/03/20 18:01 Not Given NOW ONE Vancomycin HCl 1,000 mg 05/02/20 18:13 05/02/20 19:03 Vancocin Inj 1000 Mg Vial IV 05/02/20 18:14 1,000 mg NOW ONE Administration PHYSICAL EXAMINATION: The patient is a frail build and appears to be chronically ill and malnourished. But in no acute distress he is sitting up in the chair demanding that his coffee made hot. Selected Entries 05/04/20 05/04/20 10:56 11:00 Temperature 97.6 F Temperature Axillary Source Pulse Rate 90 Respiratory 20 Rate Blood Pressure 125/60 Blood Pressure 81 Mean BP Location Right Arm BP Position Sitting O2 Sat by Pulse 93 Oximetry Oxygen Flow 2.00 Rate Oxygen Delivery Nasal Cannula Method HEAD: Is atraumatic normocephalic. EYES: Pupils are equal round regular reactive to light accommodation. ENT is negative. NECK: Is supple. There is no JVD. Carotids are equal there is no bruit. There is no lymphadenopathy. There is no goiter. There is no accessory muscle respiration use. Trachea central LUNGS: There is diminished air entry prolonged expiration. There is no wheezing. There is occasional rhonchi. There is dry crackles in the left base. HEART: S1-S2 is heard. There is no S3 gallop. There is no S4 gallop. There is systolic murmur left sternal border and the apex there is no rub. ABDOMEN: Soft. Nontender. There is no paraspinal megaly bowel sounds are well heard. EXTREMITIES: Femorals are well felt. There is no femoral bruits. Leg pulses are well felt. There is no pedal edema. There is no DVT or cellulitis. There is no calf tenderness. PUBLICATIONS SALES REPRESENTATIVE: At present the patient is oriented x3. There is no focal deficits. PSYCHIATRIC: The patient does not appear to be agitated or anxious, but appears to be demanding. Labs- Entire Visit 05/02/20 05/02/20 05/02/20 17:28 17:28 17:28 WBC 22.5 H RBC 3.52 L Hgb 11.3 L Hct 34.0 L MCV 97 MCH 32.2 MCHC 33.3 RDW 14.1 H Plt Count 240 Lymph % (Auto) Not Reportable [place] % (Auto) Not Reportable Eos % (Auto) Not Reportable Baso % (Auto) Not Reportable Absolute Neuts (auto) Not Reportable Absolute Lymphs (auto) Not Reportable Absolute Monos (auto) Not Reportable Absolute Eos (auto) Not Reportable Absolute Basos (auto) Not Reportable Total Counted 100 Seg Neutrophils % Not Reportable Seg Neuts % (Manual) 85 H Band Neutrophils % 2 L Lymphocytes % (Manual) 4 L Monocytes % (Manual) 9 Eosinophils % (Manual) 0 Basophils % (Manual) 0 Abs Neuts (Manual) 19.6 H Abs Lymphs (Manual) 0.9 Abs Monocytes (Manual) 2.0 H Absolute Eos (Manual) 0.0 Abs Basophils (Manual) 0.0 Toxic Granulation Toxic Vacuolation Clumped Platelets Platelet Comment ADEQUATE Anisocytosis Ovalocytes 1+ Radha Cells SLIGHT Schistocytes SLIGHT PT 16.0 H INR 1.27 INR (Anticoag Therapy) D-Dimer VBG pH VBG pCO2 VBG HCO3 VBG Base Excess Sodium 128.6 L Potassium 4.1 Chloride 97 L Carbon Dioxide 24 Anion Gap 8 BUN 41 H Creatinine 2.26 H Est GFR ( Amer) 33 L Est GFR (Non-Af Amer) Est GFR (MDRD) Non-Af 28 L Glucose 156 H Lactic Acid Calcium 8.5 Phosphorus Magnesium Ferritin Total Bilirubin 0.7 Direct Bilirubin 0.2 Neonat Total Bilirubin Not Reportable Neonat Direct Bilirubin Not Reportable Neonat Indirect Bili Not Reportable AST 27 ALT 12 Alkaline Phosphatase 67 Creatine Kinase Troponin I C-Reactive Protein Total Protein 5.6 L Albumin 2.8 L EGFR Urine Color Urine Appearance Urine pH Ur Specific [place] Urine Protein Urine Glucose (UA) Urine Ketones Urine Blood Urine Nitrite Urine Bilirubin Urine Urobilinogen Ur Leukocyte Esterase Urine WBC (Auto) Urine RBC (Auto) Urine Bacteria (Auto) Urine WBC Clumps Squamous Epi Cells Auto Urine Mucus (Auto) Urine Ascorbic Acid COVID-19 Source COVID-19 (MYESHA) SARS-CoV-2 (PCR) 05/02/20 05/02/20 05/02/20 17:28 17:28 17:28 WBC RBC Hgb Hct MCV MCH MCHC RDW Plt Count Lymph % (Auto) [place] % (Auto) Eos % (Auto) Baso % (Auto) Absolute Neuts (auto) Absolute Lymphs (auto) Absolute Monos (auto) Absolute Eos (auto) Absolute Basos (auto) Total Counted Seg Neutrophils % Seg Neuts % (Manual) Band Neutrophils % Lymphocytes % (Manual) Monocytes % (Manual) Eosinophils % (Manual) Basophils % (Manual) Abs Neuts (Manual) Abs Lymphs (Manual) Abs Monocytes (Manual) Absolute Eos (Manual) Abs Basophils (Manual) Toxic Granulation Toxic Vacuolation Clumped Platelets Platelet Comment Anisocytosis Ovalocytes Radha Cells Schistocytes PT INR INR (Anticoag Therapy) D-Dimer VBG pH 7.47 H VBG pCO2 34.8 L VBG HCO3 24.5 VBG Base Excess 1.2 Sodium Potassium Chloride Carbon Dioxide Anion Gap BUN Creatinine Est GFR ( Amer) Est GFR (Non-Af Amer) Est GFR (MDRD) Non-Af Glucose Lactic Acid 1.6 Calcium Phosphorus Magnesium Ferritin Total Bilirubin Direct Bilirubin Neonat Total Bilirubin Neonat Direct Bilirubin Neonat Indirect Bili AST ALT Alkaline Phosphatase Creatine Kinase Troponin I 0.703 C-Reactive Protein Total Protein Albumin EGFR Urine Color Urine Appearance Urine pH Ur Specific [place] Urine Protein Urine Glucose (UA) Urine Ketones Urine Blood Urine Nitrite Urine Bilirubin Urine Urobilinogen Ur Leukocyte Esterase Urine WBC (Auto) Urine RBC (Auto) Urine Bacteria (Auto) Urine WBC Clumps Squamous Epi Cells Auto Urine Mucus (Auto) Urine Ascorbic Acid COVID-19 Source COVID-19 (MYESHA) SARS-CoV-2 (PCR) 05/02/20 05/02/20 05/02/20 17:28 17:28 17:28 WBC RBC Hgb Hct MCV MCH MCHC RDW Plt Count Lymph % (Auto) [place] % (Auto) Eos % (Auto) Baso % (Auto) Absolute Neuts (auto) Absolute Lymphs (auto) Absolute Monos (auto) Absolute Eos (auto) Absolute Basos (auto) Total Counted Seg Neutrophils % Seg Neuts % (Manual) Band Neutrophils % Lymphocytes % (Manual) Monocytes % (Manual) Eosinophils % (Manual) Basophils % (Manual) Abs Neuts (Manual) Abs Lymphs (Manual) Abs Monocytes (Manual) Absolute Eos (Manual) Abs Basophils (Manual) Toxic Granulation Toxic Vacuolation Clumped Platelets Platelet Comment Anisocytosis Ovalocytes Radha Cells Schistocytes PT Cancelled INR Cancelled INR (Anticoag Therapy) Cancelled D-Dimer 3.78 H VBG pH VBG pCO2 VBG HCO3 VBG Base Excess Sodium Potassium Chloride Carbon Dioxide Anion Gap BUN Creatinine Est GFR ( Amer) Est GFR (Non-Af Amer) Est GFR (MDRD) Non-Af Glucose Lactic Acid Calcium Phosphorus 2.3 L Magnesium 2.1 Ferritin 331.00 Total Bilirubin Direct Bilirubin Neonat Total Bilirubin Neonat Direct Bilirubin Neonat Indirect Bili AST ALT Alkaline Phosphatase Creatine Kinase 310 H Troponin I C-Reactive Protein 371.4 H Total Protein Albumin EGFR Urine Color Urine Appearance Urine pH Ur Specific [place] Urine Protein Urine Glucose (UA) Urine Ketones Urine Blood Urine Nitrite Urine Bilirubin Urine Urobilinogen Ur Leukocyte Esterase Urine WBC (Auto) Urine RBC (Auto) Urine Bacteria (Auto) Urine WBC Clumps Squamous Epi Cells Auto Urine Mucus (Auto) Urine Ascorbic Acid COVID-19 Source COVID-19 (MYESHA) SARS-CoV-2 (PCR) 05/02/20 05/02/20 05/02/20 18:34 18:46 18:46 WBC RBC Hgb Hct MCV MCH MCHC RDW Plt Count Lymph % (Auto) [place] % (Auto) Eos % (Auto) Baso % (Auto) Absolute Neuts (auto) Absolute Lymphs (auto) Absolute Monos (auto) Absolute Eos (auto) Absolute Basos (auto) Total Counted Seg Neutrophils % Seg Neuts % (Manual) Band Neutrophils % Lymphocytes % (Manual) Monocytes % (Manual) Eosinophils % (Manual) Basophils % (Manual) Abs Neuts (Manual) Abs Lymphs (Manual) Abs Monocytes (Manual) Absolute Eos (Manual) Abs Basophils (Manual) Toxic Granulation Toxic Vacuolation Clumped Platelets Platelet Comment Anisocytosis Ovalocytes Radha Cells Schistocytes PT INR INR (Anticoag Therapy) D-Dimer VBG pH VBG pCO2 VBG HCO3 VBG Base Excess Sodium Potassium Chloride Carbon Dioxide Anion Gap BUN Creatinine Est GFR ( Amer) Est GFR (Non-Af Amer) Est GFR (MDRD) Non-Af Glucose Lactic Acid Calcium Phosphorus Magnesium Ferritin Total Bilirubin Direct Bilirubin Neonat Total Bilirubin Neonat Direct Bilirubin Neonat Indirect Bili AST ALT Alkaline Phosphatase Creatine Kinase Troponin I C-Reactive Protein Total Protein Albumin EGFR Urine Color TAL Urine Appearance SLIGHTLY-CLOUDY Urine pH 5.0 Ur Specific [place] 1.015 Urine Protein NEGATIVE Urine Glucose (UA) NEGATIVE Urine Ketones NEGATIVE Urine Blood NEGATIVE Urine Nitrite NEGATIVE Urine Bilirubin NEGATIVE Urine Urobilinogen 2.0 H Ur Leukocyte Esterase LARGE H Urine WBC (Auto) 36 Urine RBC (Auto) 4 Urine Bacteria (Auto) 3+ Urine WBC Clumps FEW Squamous Epi Cells Auto 1 Urine Mucus (Auto) OCC Urine Ascorbic Acid 40 H COVID-19 Source NASOPHARYNGEAL COVID-19 (MYESHA) NOT DETECTED SARS-CoV-2 (PCR) Cancelled 05/02/20 05/03/20 05/03/20 20:30 00:38 00:38 WBC RBC Hgb Hct MCV MCH MCHC RDW Plt Count Lymph % (Auto) [place] % (Auto) Eos % (Auto) Baso % (Auto) Absolute Neuts (auto) Absolute Lymphs (auto) Absolute Monos (auto) Absolute Eos (auto) Absolute Basos (auto) Total Counted Seg Neutrophils % Seg Neuts % (Manual) Band Neutrophils % Lymphocytes % (Manual) Monocytes % (Manual) Eosinophils % (Manual) Basophils % (Manual) Abs Neuts (Manual) Abs Lymphs (Manual) Abs Monocytes (Manual) Absolute Eos (Manual) Abs Basophils (Manual) Toxic Granulation Toxic Vacuolation Clumped Platelets Platelet Comment Anisocytosis Ovalocytes [place] Cells Schistocytes PT INR INR (Anticoag Therapy) D-Dimer VBG pH VBG pCO2 VBG HCO3 VBG Base Excess Sodium Potassium Chloride Carbon Dioxide Anion Gap BUN Creatinine Est GFR ( Amer) Est GFR (Non-Af Amer) Est GFR (MDRD) Non-Af Glucose Lactic Acid 1.9 1.2 Calcium Phosphorus Magnesium Ferritin Total Bilirubin Direct Bilirubin Neonat Total Bilirubin Neonat Direct Bilirubin Neonat Indirect Bili AST ALT Alkaline Phosphatase Creatine Kinase Troponin I 0.422 C-Reactive Protein Total Protein Albumin EGFR Urine Color Urine Appearance Urine pH Ur Specific [place] Urine Protein Urine Glucose (UA) Urine Ketones Urine Blood Urine Nitrite Urine Bilirubin Urine Urobilinogen Ur Leukocyte Esterase Urine WBC (Auto) Urine RBC (Auto) Urine Bacteria (Auto) Urine WBC Clumps Squamous Epi Cells Auto Urine Mucus (Auto) Urine Ascorbic Acid COVID-19 Source COVID-19 (MYESHA) SARS-CoV-2 (PCR) 05/03/20 05/03/20 05/03/20 07:57 07:57 07:57 WBC 28.1 H RBC 3.81 L Hgb 12.3 L Hct 36.9 L MCV 97 MCH 32.3 MCHC 33.4 RDW 14.4 H Plt Count 243 Lymph % (Auto) Not Reportable [place] % (Auto) Not Reportable Eos % (Auto) Not Reportable Baso % (Auto) Not Reportable Absolute Neuts (auto) Not Reportable Absolute Lymphs (auto) Not Reportable Absolute Monos (auto) Not Reportable Absolute Eos (auto) Not Reportable Absolute Basos (auto) Not Reportable Total Counted 100 Seg Neutrophils % Not Reportable Seg Neuts % (Manual) 82 H Band Neutrophils % 6 H Lymphocytes % (Manual) 3 L Monocytes % (Manual) 9 Eosinophils % (Manual) 0 Basophils % (Manual) 0 Abs Neuts (Manual) 24.7 H Abs Lymphs (Manual) 0.8 Abs Monocytes (Manual) 2.5 H Absolute Eos (Manual) 0.0 Abs Basophils (Manual) 0.0 Toxic Granulation SLIGHT Toxic Vacuolation PRESENT Clumped Platelets PRESENT Platelet Comment ADEQUATE Anisocytosis SLIGHT Ovalocytes Radha Cells SLIGHT Schistocytes PT INR INR (Anticoag Therapy) D-Dimer VBG pH VBG pCO2 VBG HCO3 VBG Base Excess Sodium Cancelled Potassium Cancelled Chloride Cancelled Carbon Dioxide Cancelled Anion Gap Cancelled BUN Cancelled Creatinine Cancelled Est GFR ( Amer) Cancelled Est GFR (Non-Af Amer) Cancelled Est GFR (MDRD) Non-Af Cancelled Glucose Cancelled Lactic Acid Calcium Cancelled Phosphorus Magnesium Ferritin Total Bilirubin Direct Bilirubin Neonat Total Bilirubin Neonat Direct Bilirubin Neonat Indirect Bili AST ALT Alkaline Phosphatase Creatine Kinase Troponin I Cancelled C-Reactive Protein Total Protein Albumin EGFR Cancelled Urine Color Urine Appearance Urine pH Ur Specific [place] Urine Protein Urine Glucose (UA) Urine Ketones Urine Blood Urine Nitrite Urine Bilirubin Urine Urobilinogen Ur Leukocyte Esterase Urine WBC (Auto) Urine RBC (Auto) Urine Bacteria (Auto) Urine WBC Clumps Squamous Epi Cells Auto Urine Mucus (Auto) Urine Ascorbic Acid COVID-19 Source COVID-19 (MYESHA) SARS-CoV-2 (PCR) 05/03/20 05/03/20 05/03/20 10:21 10:21 20:07 WBC RBC Hgb Hct MCV MCH MCHC RDW Plt Count Lymph % (Auto) [place] % (Auto) Eos % (Auto) Baso % (Auto) Absolute Neuts (auto) Absolute Lymphs (auto) Absolute Monos (auto) Absolute Eos (auto) Absolute Basos (auto) Total Counted Seg Neutrophils % Seg Neuts % (Manual) Band Neutrophils % Lymphocytes % (Manual) Monocytes % (Manual) Eosinophils % (Manual) Basophils % (Manual) Abs Neuts (Manual) Abs Lymphs (Manual) Abs Monocytes (Manual) Absolute Eos (Manual) Abs Basophils (Manual) Toxic Granulation Toxic Vacuolation Clumped Platelets Platelet Comment Anisocytosis Ovalocytes Radha Cells Schistocytes PT INR INR (Anticoag Therapy) D-Dimer VBG pH VBG pCO2 VBG HCO3 VBG Base Excess Sodium 131.3 L Potassium 4.3 Chloride 103 Carbon Dioxide 20 L Anion Gap 8 BUN 36 H Creatinine 1.52 H Est GFR ( Amer) 53 L Est GFR (Non-Af Amer) Est GFR (MDRD) Non-Af 43 L Glucose 144 H Lactic Acid Calcium 8.1 L Phosphorus Magnesium Ferritin Total Bilirubin Direct Bilirubin Neonat Total Bilirubin Neonat Direct Bilirubin Neonat Indirect Bili AST ALT Alkaline Phosphatase Creatine Kinase Troponin I 0.240 0.201 C-Reactive Protein Total Protein Albumin EGFR Urine Color Urine Appearance Urine pH Ur Specific [place] Urine Protein Urine Glucose (UA) Urine Ketones Urine Blood Urine Nitrite Urine Bilirubin Urine Urobilinogen Ur Leukocyte Esterase Urine WBC (Auto) Urine RBC (Auto) Urine Bacteria (Auto) Urine WBC Clumps Squamous Epi Cells Auto Urine Mucus (Auto) Urine Ascorbic Acid COVID-19 Source COVID-19 (MYESHA) SARS-CoV-2 (PCR) 05/04/20 05/04/20 06:13 06:13 WBC 26.1 H RBC 3.44 L Hgb 11.1 L Hct 33.1 L MCV 96 MCH 32.3 MCHC 33.5 RDW 14.2 H Plt Count 286 Lymph % (Auto) Not Reportable [place] % (Auto) Not Reportable Eos % (Auto) Not Reportable Baso % (Auto) Not Reportable Absolute Neuts (auto) Not Reportable Absolute Lymphs (auto) Not Reportable Absolute Monos (auto) Not Reportable Absolute Eos (auto) Not Reportable Absolute Basos (auto) Not Reportable Total Counted 100 Seg Neutrophils % Not Reportable Seg Neuts % (Manual) 92 H Band Neutrophils % 3 Lymphocytes % (Manual) 3 L Monocytes % (Manual) 2 L Eosinophils % (Manual) 0 Basophils % (Manual) 0 Abs Neuts (Manual) 24.8 H Abs Lymphs (Manual) 0.8 Abs Monocytes (Manual) 0.5 Absolute Eos (Manual) 0.0 Abs Basophils (Manual) 0.0 Toxic Granulation 1+ Toxic Vacuolation Clumped Platelets Platelet Comment ADEQUATE Anisocytosis SLIGHT Ovalocytes SLIGHT Radha Cells SLIGHT Schistocytes PT INR INR (Anticoag Therapy) D-Dimer VBG pH VBG pCO2 VBG HCO3 VBG Base Excess Sodium 133.6 L Potassium 4.1 Chloride 104 Carbon Dioxide 22 Anion Gap 8 BUN 33 H Creatinine 1.25 Est GFR ( Amer) > 60 Est GFR (Non-Af Amer) Est GFR (MDRD) Non-Af 55 L Glucose 130 H Lactic Acid Calcium 8.3 L Phosphorus Magnesium 2.2 Ferritin Total Bilirubin 0.3 Direct Bilirubin 0.0 Neonat Total Bilirubin Not Reportable Neonat Direct Bilirubin Not Reportable Neonat Indirect Bili Not Reportable AST 22 ALT 11 Alkaline Phosphatase 64 Creatine Kinase Troponin I C-Reactive Protein Total Protein 4.8 L Albumin 2.2 L EGFR Urine Color Urine Appearance Urine pH Ur Specific [place] Urine Protein Urine Glucose (UA) Urine Ketones Urine Blood Urine Nitrite Urine Bilirubin Urine Urobilinogen Ur Leukocyte Esterase Urine WBC (Auto) Urine RBC (Auto) Urine Bacteria (Auto) Urine WBC Clumps Squamous Epi Cells Auto Urine Mucus (Auto) Urine Ascorbic Acid COVID-19 Source COVID-19 (MYESHA) SARS-CoV-2 (PCR) Chest X-Ray 05/02/20 18:11 IMPRESSION: Elevated left hemidiaphragm. Cannot exclude left lower lobe pneumonia. Abdomen/Pelvis CT 05/02/20 19:39 IMPRESSION: Artifact from the patient's arms. Imaging is degraded by patient motion, with resultant artifact. The best possible images were obtained. Bibasilar airspace disease left greater than right. Most of this is atelectasis. There is a small consolidated component left lower lobe. Possibly pneumonia is raised. Cholelithiasis without acute cholecystitis. No acute intra-abdominal process is seen. THE EKG done on 05/03/2020 shows baseline artifact. Sinus rhythm. LVH. The patient subsequent EKG shows atrial fibrillation with ventricular response in the 100s. The patient EKG today shows sinus rhythm. Borderline left axis deviation. IMPRESSION/RECOMMENDATION: 1. Elevated troponin I: This is secondary to supply demand mismatch/type II myocardial infarction. This is due to the patient's atrial fibrillation with the fast ventricular response, and the pneumonia. There is no evidence of non- ST elevation [place]. The patient appears to be comfortable and not in heart failure and also his EKG is bland. 2. Paroxysmal atrial fibrillation: Patient presents sinus rhythm. Would discontinue the patient's Cardizem drip the patient's the patient on p.o. Cardizem at Cardizem CD 120 mg p.o. every 12 hours. Patient with his advanced age, dementia and frail build is high risk for bleeding complications. Hence would not recommend chronic anticoagulation. 3. Left lower lobe pneumonia: Continue antibiotics. 4. COPD: Continue anti-COPD treatment. 5. Rheumatoid arthritis by history. 6. Severe dementia. Medications reviewed. Medical regimen and management plan discussed with attending provider. Medicat ions adjusted and new medication started. Medical decision making is of high complexity. 60-minute spent as patient with more than 50% time spent in direct patient care. Discussed the case the medical regimen and management plan with the attending provider. Will follow
[2020-05-06 06:09] LABS: HEMATOCRIT 30.8 % (37.9-51.0); HEMOGLOBIN 10.3 g/dL (13.5-17.0); MEAN CORPUSCULAR HEMOGLOBIN 32.1 pg (27.0-33.4); MEAN CORPUSCULAR HGB CONC 33.5 g/dL (32.0-36.0); MEAN CORPUSCULAR VOLUME 96 fl (80-97); PLATELET COUNT 323 10^3/uL (150-450); RED BLOOD COUNT 3.22 10^6/uL (4.35-5.55); RED CELL DISTRIBUTION WIDTH 14.4 % (11.5-14.0); WHITE BLOOD COUNT 22.1 10^3/uL (4.0-10.5)
[2020-05-06 06:32] LABS: ABSOLUTE LYMPHOCYTES# (MANUAL) 1.5 10^3/uL (0.5-4.7); ABSOLUTE MONOCYTES # (MANUAL) 1.5 10^3/uL (0.1-1.4); ALBUMIN 2.2 g/dL (3.5-5.0); ALKALINE PHOSPHATASE 64 U/L (38-126); ANION GAP 7 (5-19); ASPARTATE AMINO TRANSFERASE 41 U/L (17-59); BAND NEUTROPHILS % (MANUAL) 1 % (3-5); BASOPHILS % (MANUAL) 0 % (0-2); BILIRUBIN,TOTAL 0.2 mg/dL (0.2-1.3); BLOOD UREA NITROGEN 35 mg/dL (7-20); CALCIUM 8.9 mg/dL (8.4-10.2); CARBON DIOXIDE 22 mmol/L (22-30); CHLORIDE 106 mmol/L (98-107); EOSINOPHILS % (MANUAL) 0 % (0-6); GLUCOSE 115 mg/dL (75-110); LYMPHOCYTES % (MANUAL) 7 % (13-45); MONOCYTES % (MANUAL) 7 % (3-13); OVALOCYTES SLIGHT; PLATELET COMMENT ADEQUATE; POIKILOCYTOSIS SLIGHT; SEGMENTED NEUTROPHILS % (MAN) 85 % (42-78); TOTAL CELLS COUNTED 100; TOTAL PROTEIN 4.9 g/dL (6.3-8.2)
[2020-05-06] MEDS: PANTOPRAZOLE SODIUM 20 MG TABLET.DR PO SCH (06:38)
[2020-05-06] MEDS: HYDROCORTISONE SOD SUCCINATE INJ/PF 100 MG/2 ML SDV IV SCH (06:38)
--- NOTE | 2020-05-06 09:29 | PDOC PROGRESS REPORT ---
Subjective Progress Note for:: 05/06/20 Subjective:: 89 year old male [facility] resident with a past medical history of dementia, COPD and GERD. He presents with fever of unknown duration. In the emergency department he is found to have hypotension, tachypnea and hypoxia with hyponatremia, presumed acute renal failure leukocytosis and elevated troponin with unremarkable EKG. And a left lower lobe infiltrate. Patient is intermittently cooperative, an extraordinarily poor historian and oriented to self only. He denies pain, nausea vomiting or shortness of breath. He started on empiric antibiotics and referred to the hospitalist for admission. 05/03/[id number]-old male [facility] resident with history of dementia, COPD admitted with hypotension, tachycardia, hypoxia and hyponatremia. WBC count went up to 28,000 today. COVID test is pending. Constantly trying to come out of the bed nurses have difficulty keep him in the bed. 05/04/[id number]-[id number]-old male with history of dementia admitted for hypotension tachycardia and hypoxia. Covid test is pending. Urine culture is positive for Klebsiella. Plan is to continue cefepime. Patient went into A. fib with RVR yesterday converted to sinus rhythm last night. Cardiology consult was done started on Cardizem CD 120 mg twice a day. 05/05/[id number]-jsjf-old male came from [email or web address] with hypoxia tachypnea and hypotension hypotension is resolving with a blood pressure of 115/60, heart rate in the 80s, pulse ox is 93% on 1/2 L. Blood cultures are negative so far urine culture is positive for Klebsiella, COVID test is negative. WBC count is still high at 24,600. IV cefepime and vancomycin plan is to continue the IV antibiotic therapy at this time. Patient is on IV hydrocortisone 100 mg every 8 hours plan is to decrease the dose to 50 every 12 hours. 05/06/2020-no acute events in the last 24 hours. Urine culture is positive receiving ceftriaxone. WBC count is 22,000 coming down. Patient may be able to go to [email or web address] tomorrow. Heart rate is in sinus rhythm receiving Cardizem CD 120 mg twice a day. Reason For Visit: PNA SEPSIS ARF Physical Exam Vital Signs: Temp Pulse Resp BP Pulse Ox 98.0 F 88 16 123/73 94 05/06/20 08:23 05/06/20 08:23 05/06/20 08:23 05/06/20 08:23 05/06/20 08:23 Intake & Output 05/05/20 05/06/20 05/07/20 06:59 06:59 06:59 Intake Total 841 1270 Output Total 300 Balance 541 1270 Weight 74.9 kg 73.7 kg General appearance: PRESENT: no acute distress, well-developed Head exam: PRESENT: atraumatic Eye exam: PRESENT: PERRLA Ear exam: PRESENT: normal external ear exam Teeth exam: PRESENT: dental tenderness Neck exam: ABSENT: carotid bruit, JVD, lymphadenopathy, thyromegaly Cardiovascular exam: PRESENT: RRR. ABSENT: diastolic murmur, rubs, systolic murmur GI/Abdominal exam: PRESENT: normal bowel sounds, soft. ABSENT: distended, guarding, mass, organolmegaly, rebound, tenderness Rectal exam: PRESENT: deferred Extremities exam: PRESENT: full ROM. ABSENT: calf tenderness, clubbing, pedal edema Neurological exam: PRESENT: alert, awake, oriented to person, oriented to place, oriented to time, oriented to situation, CN II-XII grossly intact. ABSENT: motor sensory deficit Psychiatric exam: PRESENT: appropriate affect, normal mood. ABSENT: homicidal ideation, suicidal ideation Results Laboratory Results: 05/06/20 05:10 05/06/20 05:10 05/06/20 05/06/20 05:10 05:10 WBC 22.1 H RBC 3.22 L Hgb 10.3 L Hct 30.8 L MCV 96 MCH 32.1 MCHC 33.5 RDW 14.4 H Plt Count 323 Seg Neutrophils % Not Reportable Sodium 135.0 L Potassium 4.0 Chloride 106 Carbon Dioxide 22 Anion Gap 7 BUN 35 H Creatinine 1.22 Est GFR ( Amer) > 60 Glucose 115 H Calcium 8.9 Magnesium 2.2 Total Bilirubin 0.2 AST 41 Alkaline Phosphatase 64 Total Protein 4.9 L Albumin 2.2 L 05/02/20 05/02/20 05/03/20 17:28 17:28 00:38 Creatine Kinase 310 H Troponin I 0.703 0.422 05/03/20 05/03/20 05/03/20 07:57 10:21 20:07 Creatine Kinase Troponin I Cancelled 0.240 0.201 Impressions: Chest X-Ray 05/02/20 18:11 IMPRESSION: Elevated left hemidiaphragm. Cannot exclude left lower lobe pneumonia. Abdomen/Pelvis CT 05/02/20 19:39 IMPRESSION: Artifact from the patient's arms. Imaging is degraded by patient motion, with resultant artifact. The best possible images were obtained. Bibasilar airspace disease left greater than right. Most of this is atelectasis. There is a small consolidated component left lower lobe. Possibly pneumonia is raised. Cholelithiasis without acute cholecystitis. No acute intra-abdominal process is seen. Assessment and Plan - Diagnosis (1) Left lower lobe pneumonia Qualifiers: Pneumonia type: due to unspecified organism Qualified Code(s): J18.9 - Pneumonia, unspecified organism Is this a current diagnosis for this admission?: Yes Plan: Pneumonia care set, significant suspicion of COVID, follow-up labs otherwise empiric antibiotics, follow-up CBC, blood culture and COVID testing. 05/03/2020-WBC count went up to 28,000 today presently on ceftriaxone and IV vancomycin. Call with test is pending. Latest temperature is 98.5 with blood pressure 134/75 respiratory rate is 20 pulse ox is 95% room air. Plan is to continue the IV antibiotic therapy waiting for the culture reports. 05/04/2020-WBC count is 26,000 today urine culture is positive for Klebsiella pneumonia receiving cefepime and vancomycin. Temperature today is 98. Plan is to continue the IV antibiotic therapy at this time. blood Cultures are negative so far. 05/05/20-WBC count is 24,600 patient is on IV hydrocortisone plan is to decrease the dose from today. Afebrile. Blood pressures are stable. Urine culture is positive for Klebsiella to discontinue IV Vanco and to continue cefepime 05/06/20-WBC count is 22,000 today improving. Plan is to discontinue steroids. Presently on IV ceftriaxone. Febrile. pulse ox is 93% on room air. (2) Shortness of breath Is this a current diagnosis for this admission?: Yes Plan: Secondary to #1, incentive spirometry, flutter valve as tolerated, supplemental oxygen, albuterol and Atrovent, 05/03/2020-pulse ox is 95% on room air not in shortness of breath at the time of my examination. 05/05/2020-pulse ox is 93% on 1 end of liters. Oxygen requirements are decreasing. 05/06/2020-shortness of breath is resolving. Presently on room air pulse ox is 93%. (3) Acute renal failure (ARF) Is this a current diagnosis for this admission?: Yes Plan: Likely secondary to #1, IV fluid challenge, avoid nephrotoxic meds and doses follow-up chemistry 05/03/2020-serum creatinine is 2.26 at the time of admission with IV fluids to 1.52. Acute kidney injury is resolving. 05/04/2020-serum creatinine today is 1.25. Acute kidney injury is resolving. 05/05/2020-serum creatinine today is 1.3 stable. 05/06/2020-serum creatinine is 1.22 stable. (4) Elevated troponin I level Is this a current diagnosis for this admission?: Yes Plan: Likely secondary to #1, complicated by acute renal failure, denies cardiac symptoms, EKG unremarkable, trend serial cardiac enzymes. 05/03/2020-patient denies any chest pains on admission troponin is 0.7 latest troponin is 0.2. (5) Dementia Is this a current diagnosis for this admission?: Yes Plan: Continue outpatient regiment and supportive care. (6) Hyponatremia Is this a current diagnosis for this admission?: Yes Plan: 05/03/2020-serum sodium is 128.6 admission with IV fluids improved to 131.3. Hyponatremia most likely secondary to dehydration. Plan is to repeat the labs tomorrow. 05/04/2020-serum sodium today is 133.6. Hyponatremia is resolving. Patient is receiving IV fluids at this time. 05/05/2020-serum sodium is around 133. Patient has persistent hyponatremia. Receiving IV fluids at this time. Patient is not on IV fluids at this time. 05/06/20-serum sodium is 135 hyponatremia is resolved. (7) Paroxysmal A-fib Is this a current diagnosis for this admission?: Yes Plan: 05/06/2020-patient went into A. fib with RVR 2 days ago started on Cardizem drip converted. Presently on p.o. Cardizem CD 120 mg twice daily and a heart rate is around 70s. Not on anticoagulation because of the age and other comorbidities he is not a candidate for anticoagulation. (8) UTI (urinary tract infection) Is this a current diagnosis for this admission?: Yes Plan: 05/06/2020-urine culture is positive for Klebsiella receiving IV ceftriaxone at this time.
[2020-05-06] MEDS: ASPIRIN 81 MG TABLET, ENT COATED PO SCH (10:47)
[2020-05-06] MEDS: DILTIAZEM HCL 120 MG CAP.SR.24H PO SCH ×2 (10:47→21:55)
[2020-05-06] MEDS: FOLIC ACID 1 MG TABLET PO SCH (10:48)
[2020-05-06] MEDS: METHOTREXATE SODIUM 2.5 MG TABLET PO SCH (10:48)
[2020-05-06] MEDS: DOCUSATE SODIUM 100 MG CAPSULE PO SCH ×2 (10:48→17:21)
[2020-05-06] MEDS: TAMSULOSIN HCL 0.4 MG CAP.SR.24H PO SCH (10:48)
[2020-05-06] MEDS: MEMANTINE HCL 10 MG TABLET PO SCH ×2 (10:49→17:21)
[2020-05-06] MEDS: FLUTICASONE NASAL SPRAY 50 MCG/SPRY 120 SPRAY/16 GM NASL SCH (10:49)
[2020-05-06] MEDS: MELOXICAM 7.5 MG TABLET PO SCH (10:49)
[2020-05-06] MEDS: SENNOSIDES/DOCUSATE 8.6-50 MG 1 EACH TABLET PO SCH (10:49)
[2020-05-06] MEDS: CYANOCOBALAMIN (VITAMIN B-12) 1,000 MCG TABLET PO SCH (10:49)
[2020-05-06] MEDS: CHOLECALCIFEROL (D3) 1,000 UNIT (25 MCG) TABLET PO SCH (10:49)
[2020-05-06] MEDS: ASCORBIC ACID 500 MG TABLET PO SCH ×2 (10:49→17:21)
[2020-05-06] MEDS: ENOXAPARIN SODIUM INJ 80 MG/0.8 ML DISP.SYRIN SUBCUT SCH ×2 (10:50→21:56)
[2020-05-06] MEDS: LORATADINE 10 MG TABLET PO SCH (10:58)
[2020-05-06] MEDS: ZINC SULFATE 220 MG CAPSULE PO SCH (10:58)
[2020-05-06 12:10] LABS: APPEARANCE,URINE CLEAR; BILIRUBIN,URINE NEGATIVE (NEGATIVE); COLOR,URINE YELLOW; GLUCOSE, URINE NEGATIVE (NEGATIVE); KETONES,URINE NEGATIVE (NEGATIVE); LEUKOCYTE ESTERASE,URINE NEGATIVE (NEGATIVE); NITRITE,URINE NEGATIVE (NEGATIVE); PROTEIN,URINE NEGATIVE (NEGATIVE); URINE SPECIFIC GRAVITY 1.015; UROBILINOGEN,URINE NEGATIVE mg/dL (<2.0)
[2020-05-06] MEDS: CEFTRIAXONE 1 GM/D5W RTU 1 GM/50 ML RTUPB IV SCH (17:22)
[2020-05-06] MEDS: COLLAGENASE CLOSTRIDIUM HIST. OINT 30 GM TOP SCH (17:48)
--- NOTE | 2020-05-06 17:58 | Progress Note ---
Provider Note Provider Note: CARDIOLOGY PROGRESS NOTE by Dr. Radhika Guthrie on 05/06/2020. OBJECTIVE: The patient remains in sinus rhythm. There is no recurrence of atrial fibrillation. There is no ventricle arrhythmia seen. The patient is confused but denies any chest pain or discomfort. He does not appear to be short of breath. There is no leg edema. There is no TIA CVA symptoms. PHYSICAL EXAMINATION: The patient is a frail build, but in no acute distress. Selected Entries 05/06/20 08:23 Temperature 98.0 F Temperature Oral Source Pulse Rate 88 Respiratory 16 Rate Blood Pressure 123/73 Blood Pressure 89 Mean BP Location Right Arm BP Position Sitting O2 Sat by Pulse 94 Oximetry Oxygen Delivery Room Air Method HEAD: Is atraumatic normocephalic. EYES: Pupils are equal round regular reactive to light accommodation. ENT is negative. NECK: Is supple. There is no JVD. Carotids are equal there is no bruit. There is no lymphadenopathy. There is no goiter. There is no accessory muscle respiration use. Trachea central LUNGS: There is diminished air entry prolonged expiration. There is no wheezing. There is occasional rhonchi. There is dry crackles in the left base. HEART: S1-S2 is heard. There is no S3 gallop. There is no S4 gallop. There is systolic murmur left sternal border and the apex there is no rub. ABDOMEN: Soft. Nontender. There is no paraspinal megaly bowel sounds are well heard. EXTREMITIES: Femorals are well felt. There is no femoral bruits. Leg pulses are well felt. There is no pedal edema. There is no DVT or cellulitis. There is no calf tenderness. SCHOOL LIBRARIAN: At present the patient is oriented x3. There is no focal deficits. PSYCHIATRIC: The patient does not appear to be agitated or anxious.. Labs- All tests 24 hr 05/05/20 05/06/20 05/06/20 17:12 05:10 05:10 WBC 22.1 H RBC 3.22 L Hgb 10.3 L Hct 30.8 L MCV 96 MCH 32.1 MCHC 33.5 RDW 14.4 H Plt Count 323 Lymph % (Auto) Not Reportable [place] % (Auto) Not Reportable Eos % (Auto) Not Reportable Baso % (Auto) Not Reportable Absolute Neuts (auto) Not Reportable Absolute Lymphs (auto) Not Reportable Absolute Monos (auto) Not Reportable Absolute Eos (auto) Not Reportable Absolute Basos (auto) Not Reportable Total Counted 100 Seg Neutrophils % Not Reportable Seg Neuts % (Manual) 85 H Band Neutrophils % 1 L Lymphocytes % (Manual) 7 L Monocytes % (Manual) 7 Eosinophils % (Manual) 0 Basophils % (Manual) 0 Abs Neuts (Manual) 19.0 H Abs Lymphs (Manual) 1.5 Abs Monocytes (Manual) 1.5 H Absolute Eos (Manual) 0.0 Abs Basophils (Manual) 0.0 Platelet Comment ADEQUATE Poikilocytosis SLIGHT Ovalocytes SLIGHT Sodium 135.0 L Potassium 4.0 Chloride 106 Carbon Dioxide 22 Anion Gap 7 BUN 35 H Creatinine 1.22 Est GFR ( Amer) > 60 Est GFR (MDRD) Non-Af 56 L Glucose 115 H Calcium 8.9 Magnesium 2.2 Total Bilirubin 0.2 Direct Bilirubin 0.0 Neonat Total Bilirubin Not Reportable Neonat Direct Bilirubin Not Reportable Neonat Indirect Bili Not Reportable AST 41 ALT 21 Alkaline Phosphatase 64 Total Protein 4.9 L Albumin 2.2 L Urine Color Urine Appearance Urine pH Ur Specific [place] Urine Protein Urine Glucose (UA) Urine Ketones Urine Blood Urine Nitrite Urine Bilirubin Urine Urobilinogen Ur Leukocyte Esterase Urine WBC (Auto) Urine RBC (Auto) U Hyaline Cast (Auto) Urine Mucus (Auto) Urine Ascorbic Acid Time Trough Drawn 1712 Vancomycin Trough 7.6 05/06/20 11:37 WBC RBC Hgb Hct MCV MCH MCHC RDW Plt Count Lymph % (Auto) [place] % (Auto) Eos % (Auto) Baso % (Auto) Absolute Neuts (auto) Absolute Lymphs (auto) Absolute Monos (auto) Absolute Eos (auto) Absolute Basos (auto) Total Counted Seg Neutrophils % Seg Neuts % (Manual) Band Neutrophils % Lymphocytes % (Manual) Monocytes % (Manual) Eosinophils % (Manual) Basophils % (Manual) Abs Neuts (Manual) Abs Lymphs (Manual) Abs Monocytes (Manual) Absolute Eos (Manual) Abs Basophils (Manual) Platelet Comment Poikilocytosis Ovalocytes Sodium Potassium Chloride Carbon Dioxide Anion Gap BUN Creatinine Est GFR ( Amer) Est GFR (MDRD) Non-Af Glucose Calcium Magnesium Total Bilirubin Direct Bilirubin Neonat Total Bilirubin Neonat Direct Bilirubin Neonat Indirect Bili AST ALT Alkaline Phosphatase Total Protein Albumin Urine Color YELLOW Urine Appearance CLEAR Urine pH 6.0 Ur Specific [place] 1.015 Urine Protein NEGATIVE Urine Glucose (UA) NEGATIVE Urine Ketones NEGATIVE Urine Blood NEGATIVE Urine Nitrite NEGATIVE Urine Bilirubin NEGATIVE Urine Urobilinogen NEGATIVE Ur Leukocyte Esterase NEGATIVE Urine WBC (Auto) 3 Urine RBC (Auto) 6 U Hyaline Cast (Auto) 1 Urine Mucus (Auto) RARE Urine Ascorbic Acid 40 H Time Trough Drawn Vancomycin Trough Chest X-Ray 05/02/20 18:11 IMPRESSION: Elevated left hemidiaphragm. Cannot exclude left lower lobe pneumonia. Abdomen/Pelvis CT 05/02/20 19:39 IMPRESSION: Artifact from the patient's arms. Imaging is degraded by patient motion, with resultant artifact. The best possible images were obtained. Bibasilar airspace disease left greater than right. Most of this is atelectasis. There is a small consolidated component left lower lobe. Possibly pneumonia is raised. Cholelithiasis without acute cholecystitis. No acute intra-abdominal process is seen. IMPRESSION/RECOMMEnDATION: 1. Elevated troponin I: This is secondary to supply demand mismatch/type II myocardial infarction. This is due to the patient's atrial fibrillation with the fast ventricular response, and the pneumonia. There is no evidence of non- ST elevation [place]. The patient appears to be comfortable and not in heart failure and also his EKG is bland. 2. Paroxysmal atrial fibrillation: Patient presents sinus rhythm. Would discontinue the patient's Cardizem drip the patient's the patient on p.o. Cardizem at Cardizem CD 120 mg p.o. every 12 hours. Patient with his advanced age, dementia and frail build is high risk for bleeding complications. Hence would not recommend chronic anticoagulation. 3. Left lower lobe pneumonia: Continue antibiotics. 4. COPD: Continue anti-COPD treatment. 5. Rheumatoid arthritis by history. 6. Severe dementia. Medications reviewed. Medical regimen and management plan discussed with attending provider. Medications adjusted and new medication started. Medical decision making is of high complexity. 40-minute spent as patient with more than 50% time spent in direct patient care. Discussed the case the medical regimen and management plan with the attending provider. Cardiology status is stable. We will sign off.
[2020-05-06] MEDS: DONEPEZIL HCL 5 MG TABLET PO SCH (21:56)
[2020-05-06] MEDS: ACETAMINOPHEN 325 MG TABLET PO PRN (22:07)
[2020-05-07] MEDS: PANTOPRAZOLE SODIUM 20 MG TABLET.DR PO SCH (05:07)
[2020-05-07 06:03] LABS: HEMATOCRIT 30.4 % (37.9-51.0); HEMOGLOBIN 10.3 g/dL (13.5-17.0); MEAN CORPUSCULAR HEMOGLOBIN 32.3 pg (27.0-33.4); MEAN CORPUSCULAR HGB CONC 33.7 g/dL (32.0-36.0); MEAN CORPUSCULAR VOLUME 96 fl (80-97); PLATELET COUNT 322 10^3/uL (150-450); RED BLOOD COUNT 3.18 10^6/uL (4.35-5.55); RED CELL DISTRIBUTION WIDTH 14.5 % (11.5-14.0); WHITE BLOOD COUNT 20.7 10^3/uL (4.0-10.5)
[2020-05-07 06:27] LABS: ALBUMIN 2.1 g/dL (3.5-5.0); ALKALINE PHOSPHATASE 61 U/L (38-126); ANION GAP 6 (5-19); ASPARTATE AMINO TRANSFERASE 35 U/L (17-59); BILIRUBIN,TOTAL 0.3 mg/dL (0.2-1.3); BLOOD UREA NITROGEN 31 mg/dL (7-20); CALCIUM 8.5 mg/dL (8.4-10.2); CARBON DIOXIDE 23 mmol/L (22-30); CHLORIDE 107 mmol/L (98-107); GLUCOSE 79 mg/dL (75-110); POTASSIUM 3.5 mmol/L (3.6-5.0); TOTAL PROTEIN 4.8 g/dL (6.3-8.2)
[2020-05-07 06:30] LABS: ABSOLUTE LYMPHOCYTES# (MANUAL) 2.1 10^3/uL (0.5-4.7); ABSOLUTE MONOCYTES # (MANUAL) 2.7 10^3/uL (0.1-1.4); BAND NEUTROPHILS % (MANUAL) 4 % (3-5); BASOPHILS % (MANUAL) 0 % (0-2); EOSINOPHILS % (MANUAL) 0 % (0-6); LYMPHOCYTES % (MANUAL) 10 % (13-45); MONOCYTES % (MANUAL) 13 % (3-13); SEGMENTED NEUTROPHILS % (MAN) 73 % (42-78); TOTAL CELLS COUNTED 100
[2020-05-07 06:31] LABS: ANISOCYTOSIS 1+; PLATELET COMMENT ADEQUATE; POLYCHROMASIA 1+
--- NOTE | 2020-05-07 08:52 | PDOC PROGRESS REPORT ---
Subjective Progress Note for:: 05/07/20 Subjective:: 89 year old male shelter resident with a past medical history of dementia, COPD and GERD. He presents with fever of unknown duration. In the emergency department he is found to have hypotension, tachypnea and hypoxia with hyponatremia, presumed acute renal failure leukocytosis and elevated troponin with unremarkable EKG. And a left lower lobe infiltrate. Patient is intermittently cooperative, an extraordinarily poor historian and oriented to self only. He denies pain, nausea vomiting or shortness of breath. He started on empiric antibiotics and referred to the hospitalist for admission. 05/03/[id number]-[id number]-old male shelter resident with history of dementia, COPD admitted with hypotension, tachycardia, hypoxia and hyponatremia. WBC count went up to 28,000 today. COVID test is pending. Constantly trying to come out of the bed nurses have difficulty keep him in the bed. 05/04/2075-81-dkum-old male with history of dementia admitted for hypotension tachycardia and hypoxia. Covid test is pending. Urine culture is positive for Klebsiella. Plan is to continue cefepime. Patient went into A. fib with RVR yesterday converted to sinus rhythm last night. Cardiology consult was done started on Cardizem CD 120 mg twice a day. 05/05/20201312-81-cjys-old male came from [facility] with hypoxia tachypnea and hypotension hypotension is resolving with a blood pressure of 115/60, heart rate in the 80s, pulse ox is 93% on 1/2 L. Blood cultures are negative so far urine culture is positive for Klebsiella, COVID test is negative. WBC count is still high at 24,600. IV cefepime and vancomycin plan is to continue the IV antibiotic therapy at this time. Patient is on IV hydrocortisone 100 mg every 8 hours plan is to decrease the dose to 50 every 12 hours. 05/06/2020-no acute events in the last 24 hours. Urine culture is positive receiving ceftriaxone. WBC count is 22,000 coming down. Patient may be able to go to [facility] tomorrow. Heart rate is in sinus rhythm receiving Cardizem CD 120 mg twice a day. 05/07/2020-patient is complaining of soreness and tightness in the groin area on examination he might have a left-sided inguinal hernia case was discussed with Dr. Cavanaugh plan is to do the CT abdominal pelvis with p.o. contrast, patient also found to have bedsores probably decubitus wounds discussed the case again with Dr. Cavanaugh for possible debridement is going to look at the patient later on today. Afebrile WBC count is improved to 22,000. pt is receiving Santyl dressing for the decubitus wound noticed yesterday. Reason For Visit: PNA SEPSIS ARF Physical Exam Vital Signs: Temp Pulse Resp BP Pulse Ox 98.0 F 72 20 117/57 L 92 05/07/20 03:24 05/07/20 03:24 05/07/20 03:24 05/07/20 03:24 05/07/20 03:24 Intake & Output 05/06/20 05/07/20 05/08/20 06:59 06:59 06:59 Intake Total 1270 1172 Output Total 100 Balance 1270 1072 Weight 73.7 kg 71.5 kg General appearance: PRESENT: no acute distress, thin Head exam: PRESENT: atraumatic Eye exam: PRESENT: PERRLA Mouth exam: PRESENT: moist, tongue midline Teeth exam: PRESENT: poor dentation Neck exam: ABSENT: carotid bruit, JVD, lymphadenopathy, thyromegaly Respiratory exam: PRESENT: decreased breath sounds Cardiovascular exam: PRESENT: RRR. ABSENT: diastolic murmur, rubs, systolic murmur GI/Abdominal exam: PRESENT: normal bowel sounds, soft. ABSENT: distended, guarding, mass, organolmegaly, rebound, tenderness Rectal exam: PRESENT: deferred Gentrourinary exam: PRESENT: other - Left-sided inguinal hernia is present hard to touch and complain of tenderness on palpation. Neurological exam: PRESENT: CN II-XII grossly intact, other - pt has advanced dementia. Results Laboratory Results: 05/07/20 05:15 05/07/20 05:15 05/06/20 05/07/20 05/07/20 11:37 05:15 05:15 WBC 20.7 H RBC 3.18 L Hgb 10.3 L Hct 30.4 L MCV 96 MCH 32.3 MCHC 33.7 RDW 14.5 H Plt Count 322 Seg Neutrophils % Not Reportable Sodium 135.9 L Potassium 3.5 L Chloride 107 Carbon Dioxide 23 Anion Gap 6 BUN 31 H Creatinine 1.21 Est GFR ( Amer) > 60 Glucose 79 Calcium 8.5 Magnesium 2.1 Total Bilirubin 0.3 AST 35 Alkaline Phosphatase 61 Total Protein 4.8 L Albumin 2.1 L Urine Color YELLOW Urine Appearance CLEAR Urine pH 6.0 Ur Specific [place] 1.015 Urine Protein NEGATIVE Urine Glucose (UA) NEGATIVE Urine Ketones NEGATIVE Urine Blood NEGATIVE Urine Nitrite NEGATIVE Ur Leukocyte Esterase NEGATIVE Urine WBC (Auto) 3 Urine RBC (Auto) 6 05/02/20 05/02/20 05/03/20 17:28 17:28 00:38 Creatine Kinase 310 H Troponin I 0.703 0.422 05/03/20 05/03/20 05/03/20 07:57 10:21 20:07 Creatine Kinase Troponin I Cancelled 0.240 0.201 Impressions: Chest X-Ray 05/02/20 18:11 IMPRESSION: Elevated left hemidiaphragm. Cannot exclude left lower lobe pneumonia. Abdomen/Pelvis CT 05/02/20 19:39 IMPRESSION: Artifact from the patient's arms. Imaging is degraded by patient motion, with resultant artifact. The best possible images were obtained. Bibasilar airspace disease left greater than right. Most of this is atelectasis. There is a small consolidated component left lower lobe. Possibly pneumonia is raised. Cholelithiasis without acute cholecystitis. No acute intra-abdominal process is seen. Assessment and Plan - Diagnosis (1) Left lower lobe pneumonia Qualifiers: Pneumonia type: due to unspecified organism Qualified Code(s): J18.9 - Pneumonia, unspecified organism Is this a current diagnosis for this admission?: Yes Plan: Pneumonia care set, significant suspicion of COVID, follow-up labs otherwise empiric antibiotics, follow-up CBC, blood culture and COVID testing. 05/03/2020-WBC count went up to 28,000 today presently on ceftriaxone and IV vancomycin. Call with test is pending. Latest temperature is 98.5 with blood pressure 134/75 respiratory rate is 20 pulse ox is 95% room air. Plan is to continue the IV antibiotic therapy waiting for the culture reports. 05/04/2020-WBC count is 26,000 today urine culture is positive for Klebsiella pneumonia receiving cefepime and vancomycin. Temperature today is 98. Plan is to continue the IV antibiotic therapy at this time. blood Cultures are negative so far. 05/05/20-WBC count is 24,600 patient is on IV hydrocortisone plan is to decrease the dose from today. Afebrile. Blood pressures are stable. Urine culture is positive for Klebsiella to discontinue IV Vanco and to continue cefepime 05/06/20-WBC count is 22,000 today improving. Plan is to discontinue steroids. Presently on IV ceftriaxone. Febrile. pulse ox is 93% on room air. 05/07/2020-WBC count is 20,700 improving. Plan is to continue IV ceftriaxone at this time. Pulse ox is 92% room air. Hypoxia is resolving. Culture is positive for Klebsiella and blood cultures are negative wound culture is pending. (2) Shortness of breath Is this a current diagnosis for this admission?: Yes Plan: Secondary to #1, incentive spirometry, flutter valve as tolerated, supplemental oxygen, albuterol and Atrovent, 05/03/2020-pulse ox is 95% on room air not in shortness of breath at the time of my examination. 05/05/2020-pulse ox is 93% on 1 end of liters. Oxygen requirements are decreasing. 05/06/2020-shortness of breath is resolving. Presently on room air pulse ox is 93%. (3) Acute renal failure (ARF) Is this a current diagnosis for this admission?: Yes Plan: Likely secondary to #1, IV fluid challenge, avoid nephrotoxic meds and doses follow-up chemistry 05/03/2020-serum creatinine is 2.26 at the time of admission with IV fluids to 1.52. Acute kidney injury is resolving. 05/04/2020-serum creatinine today is 1.25. Acute kidney injury is resolving. 05/05/2020-serum creatinine today is 1.3 stable. 05/06/2020-serum creatinine is 1.22 stable. 05/07/2020 serum creatinine today is 1.2 stable. (4) Elevated troponin I level Is this a current diagnosis for this admission?: Yes (5) Dementia Is this a current diagnosis for this admission?: Yes (6) Hyponatremia Is this a current diagnosis for this admission?: Yes Plan: 05/03/2020-serum sodium is 128.6 admission with IV fluids improved to 131.3. Hyponatremia most likely secondary to dehydration. Plan is to repeat the labs tomorrow. 05/04/2020-serum sodium today is 133.6. Hyponatremia is resolving. Patient is receiving IV fluids at this time. 05/05/2020-serum sodium is around 133. Patient has persistent hyponatremia. Receiving IV fluids at this time. Patient is not on IV fluids at this time. 05/06/20-serum sodium is 135 hyponatremia is resolved. 05/07/2020-serum sodium is 136 hyponatremia is resolved. (7) Paroxysmal A-fib Is this a current diagnosis for this admission?: Yes Plan: 05/06/2020-patient went into A. fib with RVR 2 days ago started on Cardizem drip converted. Presently on p.o. Cardizem CD 120 mg twice daily and a heart rate is around 70s. Not on anticoagulation because of the age and other comorbidities he is not a candidate for anticoagulation. 05/07/20-patient has history of paroxysmal A. fib rate controlled heart rate is around 72. Presently on Cardizem CD 120 mg twice a day. (8) UTI (urinary tract infection) Is this a current diagnosis for this admission?: Yes Plan: 05/06/2020-urine culture is positive for Klebsiella receiving IV ceftriaxone at this time. (9) Decubital ulcer Is this a current diagnosis for this admission?: Yes Plan: 05/07/2020-patient has a 2 decubitus wounds one is slightly open and receiving Santyl, second ulcer erythematous with blackish discoloration in the middle. Surgical consult was requested. (11) Inguinal hernia Is this a current diagnosis for this admission?: Yes Plan: 05/07/2020-on examination found to have inguinal hernia on the left side CT scan with p.o. contrast will be requested including abdomen pelvis. After the CT scan results are available plan is to discuss the case with Dr. Cavanaugh.
[2020-05-07] MEDS: DILTIAZEM HCL 120 MG CAP.SR.24H PO SCH ×2 (09:17→21:59)
[2020-05-07] MEDS: ACETAMINOPHEN 325 MG TABLET PO PRN (09:20)
[2020-05-07] MEDS: TAMSULOSIN HCL 0.4 MG CAP.SR.24H PO SCH (09:21)
[2020-05-07] MEDS: ASPIRIN 81 MG TABLET, ENT COATED PO SCH (09:22)
[2020-05-07] MEDS: CHOLECALCIFEROL (D3) 1,000 UNIT (25 MCG) TABLET PO SCH (09:22)
[2020-05-07] MEDS: MEMANTINE HCL 10 MG TABLET PO SCH ×2 (09:22→17:59)
[2020-05-07] MEDS: FOLIC ACID 1 MG TABLET PO SCH (09:23)
[2020-05-07] MEDS: ASCORBIC ACID 500 MG TABLET PO SCH ×2 (09:24→17:59)
[2020-05-07] MEDS: SENNOSIDES/DOCUSATE 8.6-50 MG 1 EACH TABLET PO SCH (09:24)
[2020-05-07] MEDS: CYANOCOBALAMIN (VITAMIN B-12) 1,000 MCG TABLET PO SCH (09:24)
[2020-05-07] MEDS: LORATADINE 10 MG TABLET PO SCH (09:24)
[2020-05-07] MEDS: COLLAGENASE CLOSTRIDIUM HIST. OINT 30 GM TOP SCH ×3 (09:26→22:04)
[2020-05-07] MEDS: FLUTICASONE NASAL SPRAY 50 MCG/SPRY 120 SPRAY/16 GM NASL SCH (09:26)
[2020-05-07] MEDS: ZINC SULFATE 220 MG CAPSULE PO SCH (09:26)
[2020-05-07] MEDS: MELOXICAM 7.5 MG TABLET PO SCH (09:26)
[2020-05-07] MEDS: DOCUSATE SODIUM 100 MG CAPSULE PO SCH ×2 (10:00→17:59)
--- NOTE | 2020-05-07 10:39 | PDOC CONSULTATION ---
Consultation Consult Date: 05/07/20 Attending physician:: JULIET GONZALEZ Provider Consulted: DARA TREVINO Consult reason:: buttock abscess, left groin pain History of Present Illness Admission Date/PCP: 05/02/20 22:07 JOSEFINA CASTANEDA History of Present Illness: MATILDE MARINO is a 89 year old maleLEWIS [facility] senior care resident with a past medical history of dementia, COPD and GERD. He presents with fever of unknown duration. In the emergency department he is found to have hypotension, tachypnea and hypoxia with hyponatremia, presumed acute renal failure latoya kocytosis and elevated troponin with unremarkable EKG. And a left lower lobe infiltrate. Patient is intermittently cooperative, an extraordinarily poor historian and oriented to self only. He denies pain, nausea vomiting or shortness of breath. He started on empiric antibiotics and referred to the hospitalist for admission. Patient was noted to have some swelling in his right buttock and surgically was consulted for evaluation of possible perirectal abscess versus buttock abscess In addition this he has had a longstanding left groin hernia that has been chronically incarcerated with omentum was seen on the CT scan during his admission he has some tenderness to palpation over there but is generally not tender surgically was also consulted to evaluate the left groin hernia Currently he does not complain of any nausea or vomiting is having bowel movements but does have pain over his left perineal area extending to the base of his scrotum. Past Medical History Pulmonary Medical History: Reports: Chronic Obstructive Pulmonary Disease (COPD) Neurological Medical History: Reports: Other - Dementia GI Medical History: Reports: Gastroesophageal Reflux Disease Musculoskeltal Medical History: Reports: Arthritis - RA Psychiatric Medical History: Reports: Dementia Denies: Depression Past Surgical History Past Surgical History: Reports: Other - Multiple previous left groin hernia operations Social History Lives with: Snf Smoking Status: Former Smoker Electronic Cigarette use?: No Frequency of Alcohol Use: None Drugs: None - Advance Directive Resuscitation Status: Do Not Resuscitate Family History Family History: Other - Unobtainable Parental Family History Reviewed: No Children Family History Reviewed: NA Sibling(s) Family History Reviewed.: NA Medication/Allergy Home Medications: Alfuzosin HCl [Uroxatral] 10 mg PO DAILY 05/02/20 Aspirin [Ecotrin 81 mg EC Tablet] 81 mg PO DAILY 05/02/20 Cholecalciferol (Vitamin D3) [Vitamin D3 1000 Unit Tablet] 2,000 unit PO DAILY 05/02/20 Cyanocobalamin (Vitamin B-12) [Vitamin B-12 1000 mcg Tablet] 1,000 mcg PO DAILY 05/02/20 Donepezil HCl [Aricept 5 mg Tablet] 10 mg PO QHS 05/02/20 Fluticasone Propionate [Flonase Nasal [place] 50 Mcg/[place]raz[place] 16 gm] 2 spray NASL DAILY 05/02/20 Folic Acid [Folvite 1 mg Tablet] 1 mg PO DAILY 05/02/20 Loratadine [Claritin 10 mg Tablet] 10 mg PO DAILY 05/02/20 Lorazepam [Ativan 0.5 mg Tablet] 0.5 mg PO Q6HP PRN 05/02/20 Meloxicam [Mobic 7.5 mg Tablet] 7.5 mg PO DAILY 05/02/20 Memantine HCl [Namenda 10 mg Tablet] 10 mg PO BID 05/02/20 Methotrexate Sodium [Rheumatrex 2.5 mg Tablet] 5 mg PO FR@1000 05/02/20 Omeprazole 20 mg PO Q6AM 05/02/20 Propylene Glycol/Peg 400 [Systane 0.3-0.4% Eye Drops] 1 drop OU TID 05/02/20 Sennosides/Docusate Sodium [Senna Plus 8.6-50 mg Tablet] 1 tab PO DAILY 05/02/20 Vit A/Vit C/Vit E/Zinc/Copper [Preservision Areds Tablet] 1 tab PO BID 05/02/20 Allergies/Adverse Reactions: gabapentin Allergy (Verified 02/07/19 00:06) lidocaine Allergy (Verified 02/07/19 00:06) meperidine [From Demerol] Allergy (Verified 02/07/19 00:06) Review of Systems ROS unobtainable: Due to mental status - Difficult to assess patient's review systems secondary to his dementia Constitutional: PRESENT: fatigue, weakness Eyes: ABSENT: as per HPI, visual disturbances, other Ears: ABSENT: as per HPI, hearing changes, other Nose, Mouth, and Throat: ABSENT: as per HPI, headache(s), mouth pain, sore throat, vertigo, other Cardiovascular: ABSENT: as per HPI, chest pain, dyspnea on exertion, edema, orthropnea, palpitations, other Respiratory: ABSENT: as per HPI, cough, dyspnea, hemoptysis, sputum, other Gastrointestinal: ABSENT: as per HPI, abdominal pain, bloating, coffee ground emesis, constipation, diarrhea, dysphagia, heartburn, hematemesis, hematochezia, melena, nausea, vomiting, other Genitourinary: ABSENT: as per HPI, difficulty urinating, dysuria, hematuria, nocturia, other Musculoskeletal: ABSENT: as per HPI, back pain, deformity, joint swelling, muscle weakness, other Integumentary: ABSENT: as per HPI, diaphoresis, erythema, lesions, pruritus, rash, wounds, other Neurological: ABSENT: as per HPI, abnormal gait, abnormal movements, abnormal speech, confusion, convulsions, dizziness, focal weakness, frequent falls, lack of coordination, memory loss, numbness, paresthesias, restless legs, syncope, tingling, tremor(s), vertigo, weakness, other Psychiatric: ABSENT: as per HPI, anxiety, depression, hallucinations, homidical ideation, suicidal ideation, other Endocrine: ABSENT: as per HPI, cold intolerance, flushing, heat intolerance, menstrual abnormalities, polydipsia, polyphagia, polyuria, other Hematologic/Lymphatic: ABSENT: as per HPI, easy bleeding, easy bruising, lymphadenopathy, other Allergic/Immunologic: ABSENT: as per HPI, seasonal rhinorrhea, other Physical Exam Vital Signs: Temp Pulse Resp BP Pulse Ox 98.2 F 94 20 133/71 H 94 05/07/20 09:16 05/07/20 08:07 05/07/20 08:07 05/07/20 08:07 05/07/20 08:07 Intake & Output 05/06/20 05/07/20 05/08/20 06:59 06:59 06:59 Intake Total 1270 1172 Output Total 100 Balance 1270 1072 Weight 73.7 kg 71.5 kg General appearance: PRESENT: no acute distress Head exam: PRESENT: normocephalic Eye exam: PRESENT: EOMI Mouth exam: PRESENT: dry mucosa Teeth exam: PRESENT: poor dentation Neck exam: PRESENT: full ROM Respiratory exam: PRESENT: clear to auscultation jennifer Cardiovascular exam: PRESENT: RRR Pulses: PRESENT: normal radial pulses Vascular exam: PRESENT: normal capillary refill Breast: PRESENT: Normal GI/Abdominal exam: PRESENT: soft - There is some swelling over the left groin at the inguinal canal with chronic lymphedema previous multiple scars from hernia repairs Rectal exam: PRESENT: other - The right perineum just at the base of the scrotum onto the buttock there is a palpable fluctuance 4 cm diameter area with a necrotic segment of the skin about half centimeter over it consistent with a abscess Extremities exam: PRESENT: full ROM Neurological exam: PRESENT: altered, awake Psychiatric exam: PRESENT: appropriate affect Skin exam: PRESENT: dry Results Laboratory Results: 05/07/20 05:15 05/07/20 05:15 05/06/20 05/07/20 05/07/20 11:37 05:15 05:15 WBC 20.7 H RBC 3.18 L Hgb 10.3 L Hct 30.4 L MCV 96 MCH 32.3 MCHC 33.7 RDW 14.5 H Plt Count 322 Seg Neutrophils % Not Reportable Sodium 135.9 L Potassium 3.5 L Chloride 107 Carbon Dioxide 23 Anion Gap 6 BUN 31 H Creatinine 1.21 Est GFR ( Amer) > 60 Glucose 79 Calcium 8.5 Magnesium 2.1 Total Bilirubin 0.3 AST 35 Alkaline Phosphatase 61 Total Protein 4.8 L Albumin 2.1 L Urine Color YELLOW Urine Appearance CLEAR Urine pH 6.0 Ur Specific [place] 1.015 Urine Protein NEGATIVE Urine Glucose (UA) NEGATIVE Urine Ketones NEGATIVE Urine Blood NEGATIVE Urine Nitrite NEGATIVE Ur Leukocyte Esterase NEGATIVE Urine WBC (Auto) 3 Urine RBC (Auto) 6 05/02/20 05/02/20 05/03/20 17:28 17:28 00:38 Creatine Kinase 310 H Troponin I 0.703 0.422 05/03/20 05/03/20 05/03/20 07:57 10:21 20:07 Creatine Kinase Troponin I Cancelled 0.240 0.201 Impressions: Chest X-Ray 05/02/20 18:11 IMPRESSION: Elevated left hemidiaphragm. Cannot exclude left lower lobe pneumonia. Abdomen/Pelvis CT 05/02/20 19:39 IMPRESSION: Artifact from the patient's arms. Imaging is degraded by patient motion, with resultant artifact. The best possible images were obtained. Bibasilar airspace disease left greater than right. Most of this is atelectasis. There is a small consolidated component left lower lobe. Possibly pneumonia is raised. Cholelithiasis without acute cholecystitis. No acute intra-abdominal process is seen. Assessment & Plan - Plan Summary Plan Summary: Impression is perirectal abscess at the base of the scrotum on the right side extending to the subcutaneous tissue towards the base of the scrotum consistent with a buttock versus perianal abscess. However not completely sure this is not Daniel's. The abscess will be drained at bedside and packed and will have close observatio n for improvement.
--- NOTE | 2020-05-07 11:21 | Operative Report ---
Nonrecallable Operative Report DATE OF SURGERY: 05/07/20 PREOPERATIVE DIAGNOSIS: Right buttock abscess POSTOPERATIVE DIAGNOSIS: Right buttock abscess OPERATION: Incision and drainage of right buttock abscess at bedside SURGEON: DARA TREVINO ANESTHESIA: Other TISSUE REMOVED OR ALTERED: None COMPLICATIONS: 5 cc ESTIMATED BLOOD LOSS: 5 cc INTRAOPERATIVE FINDINGS: 5 cc PROCEDURE: Procedure was done in the patient's room peak. After appropriate timeout and site verification the patient was placed in left lateral decubitus position. The left buttock perianal area was prepped with Betadine. Using a sterile scissors the 1 cm eschar at the top of the abscess was excised with sharp dissection. We then use a scissors to remove any necrotic tissue. Approximately 20 cc of pus exuded from the wound and was digitalized. He was then irrigated normal saline. And then packed with a saline soaked Kerlix gauze. A sterile dressing was applied which completed the procedure.
[2020-05-07] MEDS: ENOXAPARIN SODIUM INJ 80 MG/0.8 ML DISP.SYRIN SUBCUT SCH ×2 (14:07→21:59)
[2020-05-07] MEDS: METRONIDAZOLE 500 MG/NS RTU 500 MG/100 ML RTUPB IV SCH ×2 (14:10→18:00)
[2020-05-07] MEDS: CEFTRIAXONE 1 GM/D5W RTU 1 GM/50 ML RTUPB IV SCH (18:00)
[2020-05-07] MEDS: DONEPEZIL HCL 5 MG TABLET PO SCH (21:59)
[2020-05-08] MEDS: METRONIDAZOLE 500 MG/NS RTU 500 MG/100 ML RTUPB IV SCH ×5 (00:17→23:36)
[2020-05-08 05:42] LABS: HEMATOCRIT 30.9 % (37.9-51.0); HEMOGLOBIN 10.5 g/dL (13.5-17.0); MEAN CORPUSCULAR HEMOGLOBIN 32.4 pg (27.0-33.4); MEAN CORPUSCULAR HGB CONC 33.9 g/dL (32.0-36.0); MEAN CORPUSCULAR VOLUME 96 fl (80-97); PLATELET COUNT 338 10^3/uL (150-450); RED BLOOD COUNT 3.23 10^6/uL (4.35-5.55); RED CELL DISTRIBUTION WIDTH 14.5 % (11.5-14.0); WHITE BLOOD COUNT 25.7 10^3/uL (4.0-10.5)
[2020-05-08] MEDS: PANTOPRAZOLE SODIUM 20 MG TABLET.DR PO SCH (05:43)
[2020-05-08 06:02] LABS: ABSOLUTE LYMPHOCYTES# (MANUAL) 0.8 10^3/uL (0.5-4.7); ABSOLUTE MONOCYTES # (MANUAL) 2.6 10^3/uL (0.1-1.4); BAND NEUTROPHILS % (MANUAL) 3 % (3-5); BASOPHILS % (MANUAL) 0 % (0-2); EOSINOPHILS % (MANUAL) 0 % (0-6); LYMPHOCYTES % (MANUAL) 3 % (13-45); MONOCYTES % (MANUAL) 10 % (3-13); SEGMENTED NEUTROPHILS % (MAN) 84 % (42-78); TOTAL CELLS COUNTED 100
[2020-05-08 06:03] LABS: ALBUMIN 2.2 g/dL (3.5-5.0); ALKALINE PHOSPHATASE 66 U/L (38-126); ANION GAP 6 (5-19); ASPARTATE AMINO TRANSFERASE 28 U/L (17-59); BILIRUBIN,TOTAL 0.4 mg/dL (0.2-1.3); BLOOD UREA NITROGEN 18 mg/dL (7-20); CALCIUM 8.3 mg/dL (8.4-10.2); CARBON DIOXIDE 25 mmol/L (22-30); CHLORIDE 104 mmol/L (98-107); GLUCOSE 92 mg/dL (75-110); PLATELET COMMENT ADEQUATE; POTASSIUM 3.3 mmol/L (3.6-5.0); RBC MORPHOLOGY COMMENT NORMO-CYTIC/CHROMIC; TOTAL PROTEIN 4.9 g/dL (6.3-8.2)
[2020-05-08] MEDS ORDERED: POTASSIUM CHLORIDE 10 MEQ TABLET.ER PO ONE (06:59)
--- NOTE | 2020-05-08 08:17 | PDOC PROGRESS REPORT ---
Subjective Progress Note for:: 05/08/20 Subjective:: 89 year old male [facility]dc resident with a past medical history of dementia, COPD and GERD. He presents with fever of unknown duration. In the emergency department he is found to have hypotension, tachypnea and hypoxia with hyponatremia, presumed acute renal failure leukocytosis and elevated troponin with unremarkable EKG. And a left lower lobe infiltrate. Patient is intermittently cooperative, an extraordinarily poor historian and oriented to self only. He denies pain, nausea vomiting or shortness of breath. He started on empiric antibiotics and referred to the hospitalist for admission. 05/03/[id number]-orhy-old male fdc resident with history of dementia, COPD admitted with hypotension, tachycardia, hypoxia and hyponatremia. WBC count went up to 28,000 today. COVID test is pending. Constantly trying to come out of the bed nurses have difficulty keep him in the bed. 05/04/2033-00-ywcn-old male with history of dementia admitted for hypotension tachycardia and hypoxia. Covid test is pending. Urine culture is positive for Klebsiella. Plan is to continue cefepime. Patient went into A. fib with RVR yesterday converted to sinus rhythm last night. Cardiology consult was done started on Cardizem CD 120 mg twice a day. 05/05/[id number]-ohvx-old male came from [facility] with hypoxia tachypnea and hypotension hypotension is resolving with a blood pressure of 115/60, heart rate in the 80s, pulse ox is 93% on 1/2 L. Blood cultures are negative so far urine culture is positive for Klebsiella, COVID test is negative. WBC count is still high at 24,600. IV cefepime and vancomycin plan is to continue the IV antibiotic therapy at this time. Patient is on IV hydrocortisone 100 mg every 8 hours plan is to decrease the dose to 50 every 12 hours. 05/06/2020-no acute events in the last 24 hours. Urine culture is positive receiving ceftriaxone. WBC count is 22,000 coming down. Patient may be able to go to [facility] tomorrow. Heart rate is in sinus rhythm receiving Cardizem CD 120 mg twice a day. 05/07/2020-patient is complaining of soreness and tightness in the groin area on examination he might have a left-sided inguinal hernia case was discussed with Dr. Cavanaugh plan is to do the CT abdominal pelvis with p.o. contrast, patient also found to have bedsores probably decubitus wounds discussed the case again with Dr. Cavanaugh for possible debridement is going to look at the patient later on today. Afebrile WBC count is improved to 22,000. pt is receiving Santyl dressing for the decubitus wound noticed yesterday. 05/08/2020-patient has a incision and drainage of the right buttock abscess wound cultures are negative so far. Her WBC went up to 25,000 patient is not on steroids afebrile blood pressures are stable. Serum potassium is 3.3 which is going to be supplemented. Creatinine is continued to improve. To add IV vancomycin to the medication list and pharmacy is going to manage the doses. Reason For Visit: PNA SEPSIS ARF Physical Exam Vital Signs: Temp Pulse Resp BP Pulse Ox 98.5 F 98 20 129/70 H 94 05/08/20 03:15 05/08/20 07:00 05/08/20 03:15 05/08/20 03:15 05/08/20 03:15 Intake & Output 05/07/20 05/08/20 05/09/20 06:59 06:59 06:59 Intake Total 1172 1472 Output Total 100 Balance 1072 1472 Weight 71.5 kg 71 kg General appearance: PRESENT: no acute distress Head exam: PRESENT: atraumatic Eye exam: PRESENT: PERRLA Ear exam: PRESENT: normal external ear exam Mouth exam: PRESENT: neck supple Neck exam: ABSENT: carotid bruit, JVD, lymphadenopathy, thyromegaly Respiratory exam: PRESENT: clear to auscultation jennifer. ABSENT: rales, rhonchi, wheezes Cardiovascular exam: PRESENT: RRR. ABSENT: diastolic murmur, rubs, systolic murmur GI/Abdominal exam: PRESENT: normal bowel sounds, soft. ABSENT: distended, guarding, mass, organolmegaly, rebound, tenderness Rectal exam: PRESENT: other - Dressing present on the right buttock Neurological exam: PRESENT: alert, awake, oriented to person, oriented to place, oriented to time, oriented to situation, CN II-XII grossly intact. ABSENT: motor sensory deficit Psychiatric exam: PRESENT: appropriate affect, normal mood. ABSENT: homicidal ideation, suicidal ideation Results Laboratory Results: 05/08/20 04:52 05/08/20 04:52 05/08/20 05/08/20 04:52 04:52 WBC 25.7 H RBC 3.23 L Hgb 10.5 L Hct 30.9 L MCV 96 MCH 32.4 MCHC 33.9 RDW 14.5 H Plt Count 338 Seg Neutrophils % Not Reportable Sodium 135.0 L Potassium 3.3 L Chloride 104 Carbon Dioxide 25 Anion Gap 6 BUN 18 Creatinine 1.12 Est GFR ( Amer) > 60 Glucose 92 Calcium 8.3 L Total Bilirubin 0.4 AST 28 Alkaline Phosphatase 66 Total Protein 4.9 L Albumin 2.2 L 05/02/20 17:28 Blood Blood Culture - Final NO GROWTH IN 5 DAYS 05/02/20 17:28 Blood Blood Culture - Final NO GROWTH IN 5 DAYS 05/02/20 05/02/20 05/03/20 17:28 17:28 00:38 Creatine Kinase 310 H Troponin I 0.703 0.422 05/03/20 05/03/20 05/03/20 07:57 10:21 20:07 Creatine Kinase Troponin I Cancelled 0.240 0.201 Impressions: Chest X-Ray 05/02/20 18:11 IMPRESSION: Elevated left hemidiaphragm. Cannot exclude left lower lobe pneumonia. Abdomen/Pelvis CT 05/02/20 19:39 IMPRESSION: Artifact from the patient's arms. Imaging is degraded by patient motion, with resultant artifact. The best possible images were obtained. Bibasilar airspace disease left greater than right. Most of this is atelectasis. There is a small consolidated component left lower lobe. Possibly pneumonia is raised. Cholelithiasis without acute cholecystitis. No acute intra-abdominal process is seen. Assessment and Plan - Diagnosis (1) Left lower lobe pneumonia Qualifiers: Pneumonia type: due to unspecified organism Qualified Code(s): J18.9 - Pneumonia, unspecified organism Is this a current diagnosis for this admission?: Yes Plan: Pneumonia care set, significant suspicion of COVID, follow-up labs otherwise empiric antibiotics, follow-up CBC, blood culture and COVID testing. 05/03/2020-WBC count went up to 28,000 today presently on ceftriaxone and IV vancomycin. Call with test is pending. Latest temperature is 98.5 with blood pressure 134/75 respiratory rate is 20 pulse ox is 95% room air. Plan is to continue the IV antibiotic therapy waiting for the culture reports. 05/04/2020-WBC count is 26,000 today urine culture is positive for Klebsiella pneumonia receiving cefepime and vancomycin. Temperature today is 98. Plan is to continue the IV antibiotic therapy at this time. blood Cultures are negative so far. 05/05/20-WBC count is 24,600 patient is on IV hydrocortisone plan is to decrease the dose from today. Afebrile. Blood pressures are stable. Urine culture is positive for Klebsiella to discontinue IV Vanco and to continue cefepime 05/06/20-WBC count is 22,000 today improving. Plan is to discontinue steroids. Presently on IV ceftriaxone. Febrile. pulse ox is 93% on room air. 05/07/2020-WBC count is 20,700 improving. Plan is to continue IV ceftriaxone at this time. Pulse ox is 92% room air. Hypoxia is resolving. Culture is positive for Klebsiella and blood cultures are negative wound culture is pending. 05/08/2020-WBC count went up to 25,700, afebrile, urine culture is positive for Klebsiella blood cultures are negative wound cultures are negative so far. To add IV vancomycin to Flagyl and IV ceftriaxone. Repeat the labs tomorrow. (2) Shortness of breath Is this a current diagnosis for this admission?: Yes Plan: Secondary to #1, incentive spirometry, flutter valve as tolerated, supplemental oxygen, albuterol and Atrovent, 05/03/2020-pulse ox is 95% on room air not in shortness of breath at the time of my examination. 05/05/2020-pulse ox is 93% on 1 end of liters. Oxygen requirements are decreasing. 05/06/2020-shortness of breath is resolving. Presently on room air pulse ox is 93%. (3) Acute renal failure (ARF) Is this a current diagnosis for this admission?: Yes Plan: Likely secondary to #1, IV fluid challenge, avoid nephrotoxic meds and doses follow-up chemistry 05/03/2020-serum creatinine is 2.26 at the time of admission with IV fluids to 1.52. Acute kidney injury is resolving. 05/04/2020-serum creatinine today is 1.25. Acute kidney injury is resolving. 05/05/2020-serum creatinine today is 1.3 stable. 05/06/2020-serum creatinine is 1.22 stable. 05/07/2020 serum creatinine today is 1.2 stable. 05/08/2020-serum creatinine today is 1.12 stable. (4) Elevated troponin I level Is this a current diagnosis for this admission?: Yes Plan: Likely secondary to #1, complicated by acute renal failure, denies cardiac s ymptoms, EKG unremarkable, trend serial cardiac enzymes. 05/03/2020-patient denies any chest pains on admission troponin is 0.7 latest troponin is 0.2. (5) Dementia Is this a current diagnosis for this admission?: Yes Plan: Continue outpatient regiment and supportive care. (6) Hyponatremia Is this a current diagnosis for this admission?: Yes Plan: 05/03/2020-serum sodium is 128.6 admission with IV fluids improved to 131.3. Hyponatremia most likely secondary to dehydration. Plan is to repeat the labs tomorrow. 05/04/2020-serum sodium today is 133.6. Hyponatremia is resolving. Patient is receiving IV fluids at this time. 05/05/2020-serum sodium is around 133. Patient has persistent hyponatremia. Receiving IV fluids at this time. Patient is not on IV fluids at this time. 05/06/20-serum sodium is 135 hyponatremia is resolved. 05/07/2020-serum sodium is 136 hyponatremia is resolved. 05/08/20-serum sodium is 135 hyponatremia resolved. (7) Paroxysmal A-fib Is this a current diagnosis for this admission?: Yes Plan: 05/06/2020-patient went into A. fib with RVR 2 days ago started on Cardizem drip converted. Presently on p.o. Cardizem CD 120 mg twice daily and a heart rate is around 70s. Not on anticoagulation because of the age and other comorbidities he is not a candidate for anticoagulation. 05/07/20-patient has history of paroxysmal A. fib rate controlled heart rate is around 72. Presently on Cardizem CD 120 mg twice a day. 05/08/2020-on examination heart is in sinus rhythm plan is to continue Cardizem CD 120 mg twice a day. Heart rate is around 75. (8) UTI (urinary tract infection) Is this a current diagnosis for this admission?: Yes Plan: 05/06/2020-urine culture is positive for Klebsiella receiving IV ceftriaxone at this time. (9) Decubital ulcer Is this a current diagnosis for this admission?: Yes Plan: 05/07/2020-patient has a 2 decubitus wounds one is slightly open and receiving Santyl, second ulcer erythematous with blackish discoloration in the middle. Surgical consult was requested. 05/08/2020 found to have a right buttock abscess status post incision and drainage was done, IV Flagyl and IV vancomycin was added to the medications list WBC count went up to 25,000 patient is afebrile, wound cultures are negative so far. (10) Inguinal hernia Is this a current diagnosis for this admission?: Yes Plan: 05/07/2020-on examination found to have inguinal hernia on the left side CT scan with p.o. contrast will be requested including abdomen pelvis. After the CT scan results are available plan is to discuss the case with Dr. Cavanaugh. 05/08/2020-consulted surgery for inguinal hernia as per Dr. Cavanaugh hernia was present in the previous CT scan and he has this chronic inguinal hernia no need for surgical intervention. Repeat his CAT scan was canceled
[2020-05-08] MEDS ORDERED: VANCOMYCIN HCL INJ 1000 MG VIAL IV SCH (10:00)
[2020-05-08] MEDS: MEMANTINE HCL 10 MG TABLET PO SCH ×2 (10:05→17:19)
[2020-05-08] MEDS: DILTIAZEM HCL 120 MG CAP.SR.24H PO SCH ×2 (10:05→21:36)
[2020-05-08] MEDS: COLLAGENASE CLOSTRIDIUM HIST. OINT 30 GM TOP SCH ×2 (10:06→21:37)
[2020-05-08] MEDS: FLUTICASONE NASAL SPRAY 50 MCG/SPRY 120 SPRAY/16 GM NASL SCH (10:06)
[2020-05-08] MEDS: DOCUSATE SODIUM 100 MG CAPSULE PO SCH ×2 (10:09→17:19)
[2020-05-08] MEDS: LORATADINE 10 MG TABLET PO SCH (10:09)
[2020-05-08] MEDS: ASPIRIN 81 MG TABLET, ENT COATED PO SCH (10:09)
[2020-05-08] MEDS: FOLIC ACID 1 MG TABLET PO SCH (10:09)
[2020-05-08] MEDS: ENOXAPARIN SODIUM INJ 80 MG/0.8 ML DISP.SYRIN SUBCUT SCH ×2 (10:10→21:35)
[2020-05-08] MEDS: MELOXICAM 7.5 MG TABLET PO SCH (10:10)
[2020-05-08] MEDS: CYANOCOBALAMIN (VITAMIN B-12) 1,000 MCG TABLET PO SCH (10:11)
[2020-05-08] MEDS: ASCORBIC ACID 500 MG TABLET PO SCH ×2 (10:11→17:20)
[2020-05-08] MEDS: SENNOSIDES/DOCUSATE 8.6-50 MG 1 EACH TABLET PO SCH (10:11)
[2020-05-08] MEDS: ZINC SULFATE 220 MG CAPSULE PO SCH (10:11)
[2020-05-08] MEDS: CHOLECALCIFEROL (D3) 1,000 UNIT (25 MCG) TABLET PO SCH (10:11)
[2020-05-08] MEDS: VANCOMYCIN HCL 500 MG in DEXTROSE 5%-WATER 100 ML IV SCH ×2 (10:17→21:35)
[2020-05-08] MEDS: TAMSULOSIN HCL 0.4 MG CAP.SR.24H PO SCH (10:18)
--- NOTE | 2020-05-08 10:22 | PDOC PROGRESS REPORT ---
Subjective Progress Note for:: 05/08/20 Subjective:: F/U FOR PERIRECTAL/SCROTAL ABSCESS Reason For Visit: PNA SEPSIS ARF Physical Exam Vital Signs: Temp Pulse Resp BP Pulse Ox 98.0 F 100 16 159/81 H 96 05/08/20 07:59 05/08/20 07:59 05/08/20 07:59 05/08/20 07:59 05/08/20 07:59 Intake & Output 05/07/20 05/08/20 05/09/20 06:59 06:59 06:59 Intake Total 1172 1472 Output Total 100 Balance 1072 1472 Weight 71.5 kg 71 kg General appearance: PRESENT: no acute distress Head exam: PRESENT: normocephalic Eye exam: PRESENT: EOMI Ear exam: PRESENT: normal external ear exam Mouth exam: PRESENT: moist Neck exam: PRESENT: full ROM Respiratory exam: PRESENT: clear to auscultation jennifer Cardiovascular exam: PRESENT: RRR Pulses: PRESENT: normal radial pulses, normal femoral pulses Breast: PRESENT: Normal GI/Abdominal exam: PRESENT: soft Rectal exam: PRESENT: deferred, other - RIGH BUTTOCK ABSCESS OVER ISCHIUM EXTENDING TO SCROTUM POSTERIOR Gentrourinary exam: PRESENT: scrotal swelling Musculoskeletal exam: PRESENT: full ROM Neurological exam: PRESENT: awake Psychiatric exam: PRESENT: unusual affect Focused psych exam: PRESENT: other - DEMENTIA Skin exam: PRESENT: dry Results Laboratory Results: 05/08/20 04:52 05/08/20 04:52 05/08/20 05/08/20 04:52 04:52 WBC 25.7 H RBC 3.23 L Hgb 10.5 L Hct 30.9 L MCV 96 MCH 32.4 MCHC 33.9 RDW 14.5 H Plt Count 338 Seg Neutrophils % Not Reportable Sodium 135.0 L Potassium 3.3 L Chloride 104 Carbon Dioxide 25 Anion Gap 6 BUN 18 Creatinine 1.12 Est GFR ( Amer) > 60 Glucose 92 Calcium 8.3 L Total Bilirubin 0.4 AST 28 Alkaline Phosphatase 66 Total Protein 4.9 L Albumin 2.2 L 05/02/20 17:28 Blood Blood Culture - Final NO GROWTH IN 5 DAYS 05/02/20 17:28 Blood Blood Culture - Final NO GROWTH IN 5 DAYS 05/02/20 05/02/20 05/03/20 17:28 17:28 00:38 Creatine Kinase 310 H Troponin I 0.703 0.422 05/03/20 05/03/20 05/03/20 07:57 10:21 20:07 Creatine Kinase Troponin I Cancelled 0.240 0.201 Impressions: Chest X-Ray 05/02/20 18:11 IMPRESSION: Elevated left hemidiaphragm. Cannot exclude left lower lobe pneumonia. Abdomen/Pelvis CT 05/02/20 19:39 IMPRESSION: Artifact from the patient's arms. Imaging is degraded by patient motion, with resultant artifact. The best possible images were obtained. Bibasilar airspace disease left greater than right. Most of this is atelectasis. There is a small consolidated component left lower lobe. Possibly pneumonia is raised. Cholelithiasis without acute cholecystitis. No acute intra-abdominal process is seen. Assessment & Plan - Plan Summary Plan Summary: DECUBUTI ULCER, MULTIPLE EXTENDING TO SCROTUM PLAN TO OR FOR DEBRIDEMENT.
[2020-05-08] MEDS ORDERED: FENTANYL CITRATE INJ/PF 100 MCG/2 ML AMPUL ONE (14:58)
[2020-05-08] MEDS ORDERED: ONDANSETRON HCL INJ/PF 4 MG/2 ML SDV ONE (14:58)
[2020-05-08] MEDS ORDERED: MIDAZOLAM 2 MG/2 ML INJ ONE (14:58)
[2020-05-08] MEDS ORDERED: PROPOFOL INJ 200 MG/20 ML VIAL IV ONE (14:59)
[2020-05-08] MEDS ORDERED: LIDOCAINE 1% INJ-PF (10 MG/ML) 30 ML SDV ONE (15:45)
[2020-05-08] MEDS ORDERED: LIDOCAINE 1%/EPINEPHRINE INJ 20 ML VIAL ONE (15:45)
[2020-05-08] MEDS ORDERED: DIPHENHYDRAMINE HCL 50 MG/ML VIAL IV PRN (16:04)
[2020-05-08] MEDS ORDERED: MORPHINE SULFATE 10 MG/ML INJ IV PRN (16:04)
[2020-05-08] MEDS ORDERED: PROMETHAZINE HCL INJ 25 MG/1 ML VIAL IV PRN ×2 (16:04)
[2020-05-08] MEDS ORDERED: FENTANYL CITRATE INJ/PF 100 MCG/2 ML AMPUL IV PRN ×3 (16:04)
[2020-05-08] MEDS ORDERED: ONDANSETRON HCL INJ/PF 4 MG/2 ML SDV IV PRN (16:04)
[2020-05-08] MEDS ORDERED: OXYCODONE-ACETAMINOPHEN 5-325 MG TABLET PO PRN ×2 (16:04)
--- NOTE | 2020-05-08 16:35 | Operative Report ---
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 OPERATION: Debridement of left ischial abscess, scrotum, left groin SURGEON: DARA TREVINO ANESTHESIA: LMAC TISSUE REMOVED OR ALTERED: Necrotic tissue left groin, approximately 100 cc of purulent fluid COMPLICATIONS: None ESTIMATED BLOOD LOSS: 50 cc INTRAOPERATIVE FINDINGS: Along the groin crease up to the medial aspect of the left scrotum into the left hemiscrotum extending up to the anterior inguinal crease PROCEDURE: This is a 89-year-old male who presented with a initial abscess that underwent debridement at bedside yesterday which large amount of pus exuded from the wound he was noted to have swelling of the left groin from that he stated was from a previous hernia repair CT scan showed only stranding in the left groin crease and he was monitored overnight after debridement at bedside yesterday. Today he was noted to have more pain and more purulent drainage from the ischial skin de fect and therefore he was brought to the operating room for a debridement of the initial abscess and possible groin abscess. Procedure patient was brought to the operating room awake alert stable condition given IV sedation he was then placed in left leg in a frog a right lateral decubitus position where we could extend and flex his left leg to gain access to the left groin crease and lateral side of the left scrotum as well as the initial abscess. After induction of anesthesia we prepped and draped the left scrotum rectum perineum and left groin with Betadine. I placed my finger into the left ischial abscess that extended up into the scrotum on the left side with a large amount of purulent drainage from the scrotum through the abscess defect. Therefore I used Bovie cautery and incised the skin from the issue him along the lateral aspect of the left scrotum where we reached a large purulent fluid pocket as I opened up the left hemiscrotum incised the tunica vaginalis with a large amount of pus exuded from the tunica vaginalis around the left testicle this was all irrigated out we identified the left testicle as well as the cord structures and this extended to the left groin were by upon digital dissection a large amount of purulent fluid exuded from the wound. With normal saline I then turned attention to the anterior left groin crease with a Bovie cautery and carried the incision down through Carla's fascia and digitally dissected through Carla's fascia where I easily met the tract from the inferior aspect of the left hemiscrotum. I then debrided all necrotic tissue from both sides anterior and posterior and then use a 1 inch Al draining and inserted from the anterior incision emanating from the scrotal incision and fixed the ends of the [place] drain tog ether with a 2-0 nylon suture. A the wound was packed from below with a trans- Betadine soaked Kerlix gauze. A sterile dressing was then applied and he was referred back to the [facility] to lie in a supine position. A Trevizo catheter was then placed while he was on the transport cart [facility] and he was awakened in the operating transferred recovery in stable condition Estimated blood loss for the procedure was approximately 50 cc sponge and needle counts were correct x2.
[2020-05-08] MEDS: CEFTRIAXONE 1 GM/D5W RTU 1 GM/50 ML RTUPB IV SCH (17:23)
[2020-05-08] MEDS: ACETAMINOPHEN 325 MG TABLET PO PRN (17:41)
[2020-05-08] MEDS: DONEPEZIL HCL 5 MG TABLET PO SCH (21:36)
[2020-05-09 05:32] LABS: HEMATOCRIT 31.9 % (37.9-51.0); HEMOGLOBIN 10.6 g/dL (13.5-17.0); MEAN CORPUSCULAR HEMOGLOBIN 32.3 pg (27.0-33.4); MEAN CORPUSCULAR HGB CONC 33.3 g/dL (32.0-36.0); MEAN CORPUSCULAR VOLUME 97 fl (80-97); PLATELET COUNT 322 10^3/uL (150-450); RED BLOOD COUNT 3.28 10^6/uL (4.35-5.55); RED CELL DISTRIBUTION WIDTH 14.9 % (11.5-14.0); WHITE BLOOD COUNT 22.8 10^3/uL (4.0-10.5)
[2020-05-09 05:48] LABS: ALBUMIN 2.2 g/dL (3.5-5.0); ALKALINE PHOSPHATASE 60 U/L (38-126); ASPARTATE AMINO TRANSFERASE 25 U/L (17-59); BILIRUBIN,TOTAL 0.3 mg/dL (0.2-1.3); BLOOD UREA NITROGEN 12 mg/dL (7-20); CALCIUM 8.1 mg/dL (8.4-10.2); GLUCOSE 86 mg/dL (75-110); POTASSIUM 3.5 mmol/L (3.6-5.0); TOTAL PROTEIN 4.9 g/dL (6.3-8.2)
[2020-05-09 05:53] LABS: CARBON DIOXIDE 29 mmol/L (22-30); CHLORIDE 105 mmol/L (98-107)
[2020-05-09 05:54] LABS: ABSOLUTE LYMPHOCYTES# (MANUAL) 0.9 10^3/uL (0.5-4.7); ABSOLUTE MONOCYTES # (MANUAL) 0.5 10^3/uL (0.1-1.4); BAND NEUTROPHILS % (MANUAL) 2 % (3-5); BASOPHILS % (MANUAL) 0 % (0-2); EOSINOPHILS % (MANUAL) 0 % (0-6); LYMPHOCYTES % (MANUAL) 4 % (13-45); MONOCYTES % (MANUAL) 2 % (3-13); SEGMENTED NEUTROPHILS % (MAN) 89 % (42-78); TOTAL CELLS COUNTED 100
[2020-05-09 05:55] LABS: MYELOCYTES % (MANUAL) 3 % (0)
[2020-05-09 05:57] LABS: ANISOCYTOSIS SLIGHT; PLATELET CLUMPS PRESENT; PLATELET COMMENT ADEQUATE; TOXIC GRANULATION 1+
[2020-05-09 06:00] LABS: ANION GAP 3 (5-19)
[2020-05-09] MEDS: PANTOPRAZOLE SODIUM 20 MG TABLET.DR PO SCH (06:01)
[2020-05-09] MEDS: METRONIDAZOLE 500 MG/NS RTU 500 MG/100 ML RTUPB IV SCH ×3 (06:02→18:03)
--- NOTE | 2020-05-09 09:02 | PDOC PROGRESS REPORT ---
Subjective Progress Note for:: 05/09/20 Subjective:: 89 year old male [facility] resident with a past medical history of dementia, COPD and GERD. He presents with fever of unknown duration. In the emergency department he is found to have hypotension, tachypnea and hypoxia with hyponatremia, presumed acute renal failure leukocytosis and elevated troponin with unremarkable EKG. And a left lower lobe infiltrate. Patient is intermittently cooperative, an extraordinarily poor historian and oriented to self only. He denies pain, nausea vomiting or shortness of breath. He started on empiric antibiotics and referred to the hospitalist for admission. 05/03/[id number]-old male [facility] resident with history of dementia, COPD admitted with hypotension, tachycardia, hypoxia and hyponatremia. WBC count went up to 28,000 today. COVID test is pending. Constantly trying to come out of the bed nurses have difficulty keep him in the bed. 05/04/2085-36-dlgq-old male with history of dementia admitted for hypotension tachycardia and hypoxia. Covid test is pending. Urine culture is positive for Klebsiella. Plan is to continue cefepime. Patient went into A. fib with RVR yesterday converted to sinus rhythm last night. Cardiology consult was done started on Cardizem CD 120 mg twice a day. 05/05/[id number]-vsdc-old male came from [facility] with hypoxia tachypnea and hypotension hypotension is resolving with a blood pressure of 115/60, heart rate in the 80s, pulse ox is 93% on 1/2 L. Blood cultures are negative so far urine culture is positive for Klebsiella, COVID test is negative. WBC count is still high at 24,600. IV cefepime and vancomycin plan is to continue the IV antibiotic therapy at this time. Patient is on IV hydrocortisone 100 mg every 8 hours plan is to decrease the dose to 50 every 12 hours. 05/06/2020-no acute events in the last 24 hours. Urine culture is positive receiving ceftriaxone. WBC count is 22,000 coming down. Patient may be able to go to [facility] tomorrow. Heart rate is in sinus rhythm receiving Cardizem CD 120 mg twice a day. 05/07/2020-patient is complaining of soreness and tightness in the groin area on examination he might have a left-sided inguinal hernia case was discussed with Dr. Cavanaugh plan is to do the CT abdominal pelvis with p.o. contrast, patient also found to have bedsores probably decubitus wounds discussed the case again with Dr. Cavanaugh for possible debridement is going to look at the patient later on today. Afebrile WBC count is improved to 22,000. pt is receiving Santyl dressing for the decubitus wound noticed yesterday. 05/08/2020-patient has a incision and drainage of the right buttock abscess wound cultures are negative so far. Her WBC went up to 25,000 patient is not on steroids afebrile blood pressures are stable. Serum potassium is 3.3 which is going to be supplemented. Creatinine is continued to improve. To add IV vancomycin to the medication list and pharmacy is going to manage the doses. 05/09/20-patient went for drainage of the left inguinal abscess and perineal abscess yesterday. White cell count is coming down to 22,800, wound cultures are positive for gram-positive cocci presently on vancomycin, ceftriaxone, Flagyl. Afebrile. Complaining of soreness in the buttock. No acute events in the last 24 hours. Reason For Visit: PNA SEPSIS ARF Physical Exam Vital Signs: Temp Pulse Resp BP Pulse Ox 97.3 F 73 24 H 132/62 H 95 05/09/20 03:15 05/09/20 03:15 05/09/20 03:15 05/09/20 03:15 05/09/20 03:15 Intake & Output 05/08/20 05/09/20 05/10/20 06:59 06:59 06:59 Intake Total 1472 2660 Output Total 1795 Balance 1472 865 Weight 71 kg 70.1 kg General appearance: PRESENT: no acute distress, well-developed Head exam: PRESENT: atraumatic Eye exam: PRESENT: PERRLA Ear exam: PRESENT: normal external ear exam Mouth exam: PRESENT: moist, tongue midline Teeth exam: PRESENT: poor dentation Neck exam: ABSENT: carotid bruit, JVD, lymphadenopathy, thyromegaly Respiratory exam: PRESENT: decreased breath sounds Cardiovascular exam: PRESENT: RRR. ABSENT: diastolic murmur, rubs, systolic murmur Pulses: PRESENT: normal dorsalis pedis pul GI/Abdominal exam: PRESENT: normal bowel sounds, soft. ABSENT: distended, guarding, mass, organolmegaly, rebound, tenderness Rectal exam: PRESENT: deferred Extremities exam: PRESENT: full ROM. ABSENT: calf tenderness, clubbing, pedal edema Neurological exam: PRESENT: alert, awake, oriented to person, oriented to place, oriented to time, oriented to situation, CN II-XII grossly intact. ABSENT: motor sensory deficit Psychiatric exam: PRESENT: appropriate affect, normal mood. ABSENT: homicidal ideation, suicidal ideation Skin exam: PRESENT: dry, intact, warm. ABSENT: cyanosis, rash Results Laboratory Results: 05/09/20 04:50 05/09/20 04:50 05/09/20 05/09/20 04:50 04:50 WBC 22.8 H RBC 3.28 L Hgb 10.6 L Hct 31.9 L MCV 97 MCH 32.3 MCHC 33.3 RDW 14.9 H Plt Count 322 Seg Neutrophils % Not Reportable Sodium 136.7 L Potassium 3.5 L Chloride 105 Carbon Dioxide 29 Anion Gap 3 L BUN 12 Creatinine 1.05 Est GFR ( Amer) > 60 Glucose 86 Calcium 8.1 L Magnesium 2.0 Total Bilirubin 0.3 AST 25 Alkaline Phosphatase 60 Total Protein 4.9 L Albumin 2.2 L 05/07/20 05:50 Buttocks - Decubitis Ulcer Gram Stain - Final 05/02/20 05/02/20 05/03/20 17:28 17:28 00:38 Creatine Kinase 310 H Troponin I 0.703 0.422 05/03/20 05/03/20 05/03/20 07:57 10:21 20:07 Creatine Kinase Troponin I Cancelled 0.240 0.201 Impressions: Chest X-Ray 05/02/20 18:11 IMPRESSION: Elevated left hemidiaphragm. Cannot exclude left lower lobe pneumonia. Abdomen/Pelvis CT 05/02/20 19:39 IMPRESSION: Artifact from the patient's arms. Imaging is degraded by patient motion, with resultant artifact. The best possible images were obtained. Bibasilar airspace disease left greater than right. Most of this is atelectasis. There is a small consolidated component left lower lobe. Possibly pneumonia is raised. Cholelithiasis without acute cholecystitis. No acute intra-abdominal process is seen. Assessment and Plan - Diagnosis (1) Left lower lobe pneumonia Qualifiers: Pneumonia type: due to unspecified organism Qualified Code(s): J18.9 - P neumonia, unspecified organism Is this a current diagnosis for this admission?: Yes Plan: Pneumonia care set, significant suspicion of COVID, follow-up labs otherwise empiric antibiotics, follow-up CBC, blood culture and COVID testing. 05/03/2020-WBC count went up to 28,000 today presently on ceftriaxone and IV vancomycin. Call with test is pending. Latest temperature is 98.5 with blood pressure 134/75 respiratory rate is 20 pulse ox is 95% room air. Plan is to continue the IV antibiotic therapy waiting for the culture reports. 05/04/2020-WBC count is 26,000 today urine culture is positive for Klebsiella pneumonia receiving cefepime and vancomycin. Temperature today is 98. Plan is to continue the IV antibiotic therapy at this time. blood Cultures are negative so far. 05/05/20-WBC count is 24,600 patient is on IV hydrocortisone plan is to decrease the dose from today. Afebrile. Blood pressures are stable. Urine culture is positive for Klebsiella to discontinue IV Vanco and to continue cefepime 05/06/20-WBC count is 22,000 today improving. Plan is to discontinue steroids. Presently on IV ceftriaxone. Febrile. pulse ox is 93% on room air. 05/07/2020-WBC count is 20,700 improving. Plan is to continue IV ceftriaxone at this time. Pulse ox is 92% room air. Hypoxia is resolving. Culture is positive for Klebsiella and blood cultures are negative wound culture is pending. 05/08/2020-WBC count went up to 25,700, afebrile, urine culture is positive for Klebsiella blood cultures are negative wound cultures are negative so far. To add IV vancomycin to Flagyl and IV ceftriaxone. Repeat the labs tomorrow. 05/09/2020-WBC count is 22,800 with cultures came back positive for gram-positive cocci present on vancomycin, ceftriaxone, Flagyl. No acute events in the last 24 hours. Surgery is following the patient. (2) Shortness of breath Is this a current diagnosis for this admission?: Yes Plan: Secondary to #1, incentive spirometry, flutter valve as tolerated, supplemental oxygen, albuterol and Atrovent, 05/03/2020-pulse ox is 95% on room air not in shortness of breath at the time of my examination. 05/05/2020-pulse ox is 93% on 1 end of liters. Oxygen requirements are decreasing. 05/06/2020-shortness of breath is resolving. Presently on room air pulse ox is 93%. 05/09/2020-pulse ox today is 95% on 3 L. Stable. (3) Acute renal failure (ARF) Is this a current diagnosis for this admission?: Yes Plan: Likely secondary to #1, IV fluid challenge, avoid nephrotoxic meds and doses follow-up chemistry 05/03/2020-serum creatinine is 2.26 at the time of admission with IV fluids to 1.52. Acute kidney injury is resolving. 05/04/2020-serum creatinine today is 1.25. Acute kidney injury is resolving. 05/05/2020-serum creatinine today is 1.3 stable. 05/06/2020-serum creatinine is 1.22 stable. 05/07/2020 serum creatinine today is 1.2 stable. 05/08/2020-serum creatinine today is 1.12 stable. 05/09/2020-serum creatinine today is 1.05 kidney function is stable. (4) Elevated troponin I level Is this a current diagnosis for this admission?: Yes Plan: Likely secondary to #1, complicated by acute renal failure, denies cardiac symptoms, EKG unremarkable, trend serial cardiac enzymes. 05/03/2020-patient denies any chest pains on admission troponin is 0.7 latest troponin is 0.2. (5) Dementia Is this a current diagnosis for this admission?: Yes Plan: Continue outpatient regiment and supportive care. (6) Hyponatremia Is this a current diagnosis for this admission?: Yes Plan: 05/03/2020-serum sodium is 128.6 admission with IV fluids improved to 131.3. Hyponatremia most likely secondary to dehydration. Plan is to repeat the labs tomorrow. 05/04/2020-serum sodium today is 133.6. Hyponatremia is resolving. Patient is receiving IV fluids at this time. 05/05/2020-serum sodium is around 133. Patient has persistent hyponatremia. Receiving IV fluids at this time. Patient is not on IV fluids at this time. 05/06/20-serum sodium is 135 hyponatremia is resolved. 05/07/2020-serum sodium is 136 hyponatremia is resolved. 05/08/20-serum sodium is 135 hyponatremia resolved. 05/09/2020-latest serum sodium is 136.7 stable. (7) Paroxysmal A-fib Is this a current diagnosis for this admission?: Yes Plan: 05/06/2020-patient went into A. fib with RVR 2 days ago started on Cardizem drip converted. Presently on p.o. Cardizem CD 120 mg twice daily and a heart rate is around 70s. Not on anticoagulation because of the age and other comorbidities he is not a candidate for anticoagulation. 05/07/20-patient has history of paroxysmal A. fib rate controlled heart rate is around 72. Presently on Cardizem CD 120 mg twice a day. 05/08/2020-on examination heart is in sinus rhythm plan is to continue Cardizem CD 120 mg twice a day. Heart rate is around 75. (8) UTI (urinary tract infection) Is this a current diagnosis for this admission?: Yes Plan: 05/06/2020-urine culture is positive for Klebsiella receiving IV ceftriaxone at this time. (9) Decubital ulcer Is this a current diagnosis for this admission?: Yes Plan: 05/07/2020-patient has a 2 decubitus wounds one is slightly open and receiving Santyl, second ulcer erythematous with blackish discoloration in the middle. Surgical consult was requested. 05/08/2020 found to have a right buttock abscess status post incision and drainage was done, IV Flagyl and IV vancomycin was added to the medications list WBC count went up to 25,000 patient is afebrile, wound cultures are negative so far. 05/09/20-patient went to the OR again yesterday for inguinal abscess on the left side status post surgery was done. Dr. Cavanaugh is following the patient. Wound cultures came back positive for gram-positive cocci. Presently on Vanco, ceftriaxone, Flagyl. (10) Inguinal hernia Is this a current diagnosis for this admission?: Yes Plan: 05/07/2020-on examination found to have inguinal hernia on the left side CT scan with p.o. contrast will be requested including abdomen pelvis. After the CT scan results are available plan is to discuss the case with Dr. Cavanaugh. 05/08/2020-consulted surgery for inguinal hernia as per Dr. Cavanaugh hernia was present in the previous CT scan and he has this chronic inguinal hernia no need for surgical intervention. Repeat his CAT scan was canceled
[2020-05-09] MEDS: VANCOMYCIN HCL 500 MG in DEXTROSE 5%-WATER 100 ML IV SCH ×2 (09:29→22:05)
[2020-05-09] MEDS: FOLIC ACID 1 MG TABLET PO SCH (09:30)
[2020-05-09] MEDS: TAMSULOSIN HCL 0.4 MG CAP.SR.24H PO SCH (09:30)
[2020-05-09] MEDS: LORATADINE 10 MG TABLET PO SCH (09:30)
[2020-05-09] MEDS: MEMANTINE HCL 10 MG TABLET PO SCH ×2 (09:31→17:24)
[2020-05-09] MEDS: DILTIAZEM HCL 120 MG CAP.SR.24H PO SCH ×2 (09:31→21:37)
[2020-05-09] MEDS: CHOLECALCIFEROL (D3) 1,000 UNIT (25 MCG) TABLET PO SCH (09:31)
[2020-05-09] MEDS: ASPIRIN 81 MG TABLET, ENT COATED PO SCH (09:31)
[2020-05-09] MEDS: SENNOSIDES/DOCUSATE 8.6-50 MG 1 EACH TABLET PO SCH (09:31)
[2020-05-09] MEDS: ASCORBIC ACID 500 MG TABLET PO SCH ×2 (09:31→17:24)
[2020-05-09] MEDS: FLUTICASONE NASAL SPRAY 50 MCG/SPRY 120 SPRAY/16 GM NASL SCH (09:32)
[2020-05-09] MEDS: COLLAGENASE CLOSTRIDIUM HIST. OINT 30 GM TOP SCH ×2 (09:32→22:06)
[2020-05-09] MEDS: DOCUSATE SODIUM 100 MG CAPSULE PO SCH ×2 (09:32→17:24)
[2020-05-09] MEDS: MELOXICAM 7.5 MG TABLET PO SCH (09:32)
[2020-05-09] MEDS: ZINC SULFATE 220 MG CAPSULE PO SCH (09:32)
[2020-05-09] MEDS: ENOXAPARIN SODIUM INJ 80 MG/0.8 ML DISP.SYRIN SUBCUT SCH ×2 (09:33→21:39)
[2020-05-09] MEDS: CYANOCOBALAMIN (VITAMIN B-12) 1,000 MCG TABLET PO SCH (09:33)
[2020-05-09] MEDS: OXYCODONE-ACETAMINOPHEN 5-325 MG TABLET PO PRN ×2 (11:25→17:30)
--- NOTE | 2020-05-09 12:57 | PDOC PROGRESS REPORT ---
Subjective Progress Note for:: 05/09/20 Reason For Visit: PNA SEPSIS ARF Patient seen this morning, at bedside, awake alert and oriented x4. Physical Exam Vital Signs: Temp Pulse Resp BP Pulse Ox 98.1 F 89 16 132/64 H 98 05/09/20 11:18 05/09/20 11:18 05/09/20 11:18 05/09/20 11:18 05/09/20 11:18 Intake & Output 05/08/20 05/09/20 05/10/20 06:59 06:59 06:59 Intake Total 1472 2660 220 Output Total 1795 400 Balance 1472 865 -180 Weight 71 kg 70.1 kg General appearance: PRESENT: no acute distress Rectal exam: PRESENT: other - Patient rolled in the bed to the right lateral decubitus position. Dressings and all packing removed. Mineral drain from the left inguinal area down to the left hemiscrotum manipulated. There is some fibrinous nonviable tissue sloughing, but no overt foul smell or liquid pus expressed. Wounds irrigated easily and well tolerated at bedside, and repacked with normal saline moistened portions of Curlex. Results Laboratory Results: 05/09/20 04:50 05/09/20 04:50 05/09/20 05/09/20 04:50 04:50 WBC 22.8 H RBC 3.28 L Hgb 10.6 L Hct 31.9 L MCV 97 MCH 32.3 MCHC 33.3 RDW 14.9 H Plt Count 322 Seg Neutrophils % Not Reportable Sodium 136.7 L Potassium 3.5 L Chloride 105 Carbon Dioxide 29 Anion Gap 3 L BUN 12 Creatinine 1.05 Est GFR ( Amer) > 60 Glucose 86 Calcium 8.1 L Magnesium 2.0 Total Bilirubin 0.3 AST 25 Alkaline Phosphatase 60 Total Protein 4.9 L Albumin 2.2 L 05/07/20 05:50 Buttocks - Decubitis Ulcer Gram Stain - Final 05/02/20 05/02/20 05/03/20 17:28 17:28 00:38 Creatine Kinase 310 H Troponin I 0.703 0.422 05/03/20 05/03/20 05/03/20 07:57 10:21 20:07 Creatine Kinase Troponin I Cancelled 0.240 0.201 Impressions: Chest X-Ray 05/02/20 18:11 IMPRESSION: Elevated left hemidiaphragm. Cannot exclude left lower lobe pneumonia. Abdomen/Pelvis CT 05/02/20 19:39 IMPRESSION: Artifact from the patient's arms. Imaging is degraded by patient motion, with resultant artifact. The best possible images were obtained. Bibasilar airspace disease left greater than right. Most of this is atelectasis. There is a small consolidated component left lower lobe. Possibly pneumonia is raised. Cholelithiasis without acute cholecystitis. No acute intra-abdominal process is seen. Assessment & Plan - Diagnosis (1) Necrotizing fasciitis Is this a current diagnosis for this admission?: Yes Plan: Impression: Patient is 1 day status post vigorous debridement left scrotum, counterincision left inguinal area, drainage of widespread pus and debridement of necrotic soft tissue, looking acceptable, with no need for additional tricia ridement today. Growing multiple infecting organisms. No overt sepsis; persisting leukocytosis Recommendations: 1. Start dressing changes; ordered 2. Spoke with hospitalist; will add Diflucan to cover Naty albicans growing from wound 3. We will continue to follow closely with you - Time Time Spent: 30 to 50 Minutes
[2020-05-09 14:17] LABS: APPEARANCE,URINE SLIGHTLY-CLOUDY; BILIRUBIN,URINE NEGATIVE (NEGATIVE); COLOR,URINE YELLOW; GLUCOSE, URINE NEGATIVE (NEGATIVE); KETONES,URINE NEGATIVE (NEGATIVE); LEUKOCYTE ESTERASE,URINE TRACE (NEGATIVE); NITRITE,URINE NEGATIVE (NEGATIVE); PROTEIN,URINE NEGATIVE (NEGATIVE); URINE SPECIFIC GRAVITY 1.016; UROBILINOGEN,URINE NEGATIVE mg/dL (<2.0)
[2020-05-09 15:52] LABS: PATH REVIEW PATHOLOGIST REVIEWED
[2020-05-09] MEDS: CEFTRIAXONE 1 GM/D5W RTU 1 GM/50 ML RTUPB IV SCH (17:22)
[2020-05-09] MEDS: FLUCONAZOLE 100 MG TABLET PO SCH (17:25)
[2020-05-09] MEDS: DONEPEZIL HCL 5 MG TABLET PO SCH (21:34)
[2020-05-10] MEDS: METRONIDAZOLE 500 MG/NS RTU 500 MG/100 ML RTUPB IV SCH ×4 (00:47→17:03)
[2020-05-10 05:43] LABS: HEMATOCRIT 30.4 % (37.9-51.0); HEMOGLOBIN 10.1 g/dL (13.5-17.0); MEAN CORPUSCULAR HEMOGLOBIN 32.1 pg (27.0-33.4); MEAN CORPUSCULAR HGB CONC 33.3 g/dL (32.0-36.0); MEAN CORPUSCULAR VOLUME 97 fl (80-97); PLATELET COUNT 352 10^3/uL (150-450); RED BLOOD COUNT 3.15 10^6/uL (4.35-5.55); RED CELL DISTRIBUTION WIDTH 14.9 % (11.5-14.0); WHITE BLOOD COUNT 21.5 10^3/uL (4.0-10.5)
[2020-05-10] MEDS: PANTOPRAZOLE SODIUM 20 MG TABLET.DR PO SCH (05:55)
[2020-05-10 06:01] LABS: ALKALINE PHOSPHATASE 64 U/L (38-126); ASPARTATE AMINO TRANSFERASE 26 U/L (17-59); BILIRUBIN,TOTAL 0.3 mg/dL (0.2-1.3); BLOOD UREA NITROGEN 14 mg/dL (7-20); CALCIUM 8.5 mg/dL (8.4-10.2); CARBON DIOXIDE 30 mmol/L (22-30); GLUCOSE 95 mg/dL (75-110); POTASSIUM 4.6 mmol/L (3.6-5.0); TOTAL PROTEIN 4.8 g/dL (6.3-8.2)
[2020-05-10 06:07] LABS: ANION GAP 5 (5-19); CHLORIDE 102 mmol/L (98-107)
[2020-05-10 07:09] LABS: ABSOLUTE LYMPHOCYTES# (MANUAL) 1.9 10^3/uL (0.5-4.7); ABSOLUTE MONOCYTES # (MANUAL) 0.2 10^3/uL (0.1-1.4); BASOPHILS % (MANUAL) 0 % (0-2); EOSINOPHILS % (MANUAL) 3 % (0-6); LYMPHOCYTES % (MANUAL) 9 % (13-45); METAMYELOCYTES % (MANUAL) 1 % (0-1); MONOCYTES % (MANUAL) 1 % (3-13); MYELOCYTES % (MANUAL) 3 % (0); SEGMENTED NEUTROPHILS % (MAN) 83 % (42-78); TOTAL CELLS COUNTED 100
[2020-05-10 07:11] LABS: ANISOCYTOSIS SLIGHT; OVALOCYTES SLIGHT; PLATELET COMMENT ADEQUATE; POLYCHROMASIA SLIGHT
[2020-05-10] MEDS ORDERED: PHARMACY COMMUNICATION ORDER MC SCH (09:45)
[2020-05-10] MEDS: FLUTICASONE NASAL SPRAY 50 MCG/SPRY 120 SPRAY/16 GM NASL SCH (10:36)
[2020-05-10] MEDS: ENOXAPARIN SODIUM INJ 80 MG/0.8 ML DISP.SYRIN SUBCUT SCH ×3 (10:37→21:39)
[2020-05-10] MEDS: ZINC SULFATE 220 MG CAPSULE PO SCH (10:37)
[2020-05-10] MEDS: MELOXICAM 7.5 MG TABLET PO SCH (10:37)
[2020-05-10] MEDS: VANCOMYCIN HCL 500 MG in DEXTROSE 5%-WATER 100 ML IV SCH (10:37)
[2020-05-10] MEDS: DOCUSATE SODIUM 100 MG CAPSULE PO SCH ×2 (10:38→17:16)
[2020-05-10] MEDS: TAMSULOSIN HCL 0.4 MG CAP.SR.24H PO SCH (10:38)
[2020-05-10] MEDS: LORATADINE 10 MG TABLET PO SCH (10:38)
[2020-05-10] MEDS: ASCORBIC ACID 500 MG TABLET PO SCH ×2 (10:39→17:03)
[2020-05-10] MEDS: FOLIC ACID 1 MG TABLET PO SCH (10:39)
[2020-05-10] MEDS: CHOLECALCIFEROL (D3) 1,000 UNIT (25 MCG) TABLET PO SCH (10:39)
[2020-05-10] MEDS: MEMANTINE HCL 10 MG TABLET PO SCH ×2 (10:39→17:03)
[2020-05-10] MEDS: CYANOCOBALAMIN (VITAMIN B-12) 1,000 MCG TABLET PO SCH (10:39)
[2020-05-10] MEDS: DILTIAZEM HCL 120 MG CAP.SR.24H PO SCH ×2 (10:39→21:32)
[2020-05-10] MEDS: ASPIRIN 81 MG TABLET, ENT COATED PO SCH (10:39)
[2020-05-10] MEDS: FLUCONAZOLE 100 MG TABLET PO SCH (10:39)
[2020-05-10] MEDS: COLLAGENASE CLOSTRIDIUM HIST. OINT 30 GM TOP SCH ×2 (10:40→21:32)
[2020-05-10] MEDS: SENNOSIDES/DOCUSATE 8.6-50 MG 1 EACH TABLET PO SCH (10:40)
[2020-05-10 10:42] LABS: VANCOMYCIN,TROUGH 8.5 ug/mL (5.0-20.0)
[2020-05-10] MEDS ORDERED: GLUCAGON,HUMAN RECOMB 1 MG INJ SUBCUT PRN (13:30)
[2020-05-10] MEDS ORDERED: DEXTROSE 40% GEL 15 GM TUBE PO PRN ×2 (13:30)
[2020-05-10] MEDS ORDERED: DEXTROSE 50%-WATER 25 GM/50 ML DISP.SYRIN IV PRN ×2 (13:30)
--- NOTE | 2020-05-10 13:32 | PDOC PROGRESS REPORT ---
Subjective Progress Note for:: 05/10/20 Reason For Visit: PNA SEPSIS ARF Physical Exam Vital Signs: Temp Pulse Resp BP Pulse Ox 98.1 F 78 18 120/61 94 05/10/20 11:55 05/10/20 11:55 05/10/20 11:55 05/10/20 11:55 05/10/20 11:55 Intake & Output 05/09/20 05/10/20 05/11/20 06:59 06:59 06:59 Intake Total 2660 1045 Output Total 1795 1150 Balance 865 -105 Weight 70.1 kg 67.4 kg Results Laboratory Results: 05/10/20 04:57 05/10/20 04:57 05/09/20 05/10/20 05/10/20 13:36 04:57 04:57 WBC 21.5 H RBC 3.15 L Hgb 10.1 L Hct 30.4 L MCV 97 MCH 32.1 MCHC 33.3 RDW 14.9 H Plt Count 352 Seg Neutrophils % Not Reportable Sodium 137.0 Potassium 4.6 Chloride 102 Carbon Dioxide 30 Anion Gap 5 BUN 14 Creatinine 1.25 Est GFR ( Amer) > 60 Glucose 95 Calcium 8.5 Magnesium 2.2 Total Bilirubin 0.3 AST 26 Alkaline Phosphatase 64 Total Protein 4.8 L Albumin 2.0 L Urine Color YELLOW Urine Appearance SLIGHTLY-CLOUDY Urine pH 5.0 Ur Specific [place] 1.016 Urine Protein NEGATIVE Urine Glucose (UA) NEGATIVE Urine Ketones NEGATIVE Urine Blood NEGATIVE Urine Nitrite NEGATIVE Ur Leukocyte Esterase TRACE H Urine WBC (Auto) 4 Urine RBC (Auto) 2 05/07/20 05:50 Buttocks - Decubitis Ulcer Gram Stain - Final 05/07/20 05:50 Buttocks - Decubitis Ulcer Wound Culture - Final Mrsa (Meth Resis Staph Aureus) C.albicans/C.dubliniensis 05/08/20 15:57 Decubitis Ulcer - Buttocks Gram Stain - Final 05/08/20 15:57 Decubitis Ulcer - Buttocks Wound Culture - Final Mrsa (Meth Resis Staph Aureus) No Anaerobic Organisms 05/02/20 05/02/20 05/03/20 17:28 17:28 00:38 Creatine Kinase 310 H Troponin I 0.703 0.422 05/03/20 05/03/20 05/03/20 07:57 10:21 20:07 Creatine Kinase Troponin I Cancelled 0.240 0.201 Impressions: Chest X-Ray 05/02/20 18:11 IMPRESSION: Elevated left hemidiaphragm. Cannot exclude left lower lobe pneumonia. Abdomen/Pelvis CT 05/02/20 19:39 IMPRESSION: Artifact from the patient's arms. Imaging is degraded by patient motion, with resultant artifact. The best possible images were obtained. Bibasilar airspace disease left greater than right. Most of this is atelectasis. There is a small consolidated component left lower lobe. Possibly pneumonia is raised. Cholelithiasis without acute cholecystitis. No acute intra-abdominal process is seen. Assessment & Plan - Diagnosis (1) Necrotizing fasciitis Is this a current diagnosis for this admission?: Yes - Plan Summary Plan Summary: This is an 89-year-old male with a necrotizing soft tissue infection of the scrotum and perineum. The patient currently has a large wound, with the left testicle exposed to the atmosphere. Currently the nurses are performing damp dressing changes. The wound appears to be free of necrotic debris or ongoing active infection. A determination will need to be made as to the most appropriate way to deal with the exposed testicle. Plan for n.p.o. after midnight, with surgical exploration tomorrow. The patient may require removal of the testicle, if no significant coverage can be found. Surgery will continue to follow.
--- NOTE | 2020-05-10 13:56 | PDOC PROGRESS REPORT ---
Subjective Progress Note for:: 05/10/20 Subjective:: The patient is actually resting comfortably in bed having his lunch. He states he is having some discomfort but does not complain of severe pain Reason For Visit: PNA SEPSIS ARF Physical Exam Vital Signs: Temp Pulse Resp BP Pulse Ox 98.1 F 78 18 120/61 94 05/10/20 11:55 05/10/20 11:55 05/10/20 11:55 05/10/20 11:55 05/10/20 11:55 Intake & Output 05/09/20 05/10/20 05/11/20 06:59 06:59 06:59 Intake Total 2660 1045 Output Total 1795 1150 Balance 865 -105 Weight 70.1 kg 67.4 kg Mouth exam: PRESENT: moist, tongue midline Respiratory exam: PRESENT: symmetrical, unlabored. ABSENT: rales, rhonchi, tachypnea, wheezes Cardiovascular exam: PRESENT: RRR, +S1, +S2 GI/Abdominal exam: PRESENT: normal bowel sounds, soft. ABSENT: tenderness Results Laboratory Results: 05/10/20 04:57 05/10/20 04:57 05/09/20 05/10/20 05/10/20 13:36 04:57 04:57 WBC 21.5 H RBC 3.15 L Hgb 10.1 L Hct 30.4 L MCV 97 MCH 32.1 MCHC 33.3 RDW 14.9 H Plt Count 352 Seg Neutrophils % Not Reportable Sodium 137.0 Potassium 4.6 Chloride 102 Carbon Dioxide 30 Anion Gap 5 BUN 14 Creatinine 1.25 Est GFR ( Amer) > 60 Glucose 95 Calcium 8.5 Magnesium 2.2 Total Bilirubin 0.3 AST 26 Alkaline Phosphatase 64 Total Protein 4.8 L Albumin 2.0 L Urine Color YELLOW Urine Appearance SLIGHTLY-CLOUDY Urine pH 5.0 Ur Specific Marana 1.016 Urine Protein NEGATIVE Urine Glucose (UA) NEGATIVE Urine Ketones NEGATIVE Urine Blood NEGATIVE Urine Nitrite NEGATIVE Ur Leukocyte Esterase TRACE H Urine WBC (Auto) 4 Urine RBC (Auto) 2 05/07/20 05:50 Buttocks - Decubitis Ulcer Gram Stain - Final 05/07/20 05:50 Buttocks - Decubitis Ulcer Wound Culture - Final Mrsa (Meth Resis Staph Aureus) C.albicans/C.dubliniensis 05/08/20 15:57 Decubitis Ulcer - Buttocks Gram Stain - Final 05/08/20 15:57 Decubitis Ulcer - Buttocks Wound Culture - Final Mrsa (Meth Resis Staph Aureus) No Anaerobic Organisms 05/02/20 05/02/20 05/03/20 17:28 17:28 00:38 Creatine Kinase 310 H Troponin I 0.703 0.422 05/03/20 05/03/20 05/03/20 07:57 10:21 20:07 Creatine Kinase Troponin I Cancelled 0.240 0.201 Impressions: Chest X-Ray 05/02/20 18:11 IMPRESSION: Elevated left hemidiaphragm. Cannot exclude left lower lobe pneumonia. Abdomen/Pelvis CT 05/02/20 19:39 IMPRESSION: Artifact from the patient's arms. Imaging is degraded by patient motion, with resultant artifact. The best possible images were obtained. Bibasilar airspace disease left greater than right. Most of this is atelectasis. There is a small consolidated component left lower lobe. Possibly pneumonia is raised. Cholelithiasis without acute cholecystitis. No acute intra-abdominal process is seen. 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 Extensive debridement in the perineum and buttock/ischial areas. As noted by Dr. 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 He will be n.p.o. after midnight tonight for further surgical intervention tomorrow. The abscess fluid was positive for MRSA and Naty. The patient is currently on fluconazole, metronidazole and vancomycin. (2) Left lower lobe pneumonia Qualifiers: Pneumonia type: due to unspecified organism Qualified Code(s): J18.9 - Pneumonia, unspecified organism Is this a current diagnosis for this admission?: Yes Plan: Pneumonia care set, significant suspicion of COVID, follow-up labs otherwise empiric antibiotics, follow-up CBC, blood culture and COVID testing. 05/03/2020-WBC count went up to 28,000 today presently on ceftriaxone and IV vancomycin. Call with test is pending. Latest temperature is 98.5 with blood pressure 134/75 respiratory rate is 20 pulse ox is 95% room air. Plan is to continue the IV antibiotic therapy waiting for the culture reports. 05/04/2020-WBC count is 26,000 today urine culture is positive for Klebsiella pneumonia receiving cefepime and vancomycin. Temperature today is 98. Plan is to continue the IV antibiotic therapy at this time. blood Cultures are negative so far. 05/05/20-WBC count is 24,600 patient is on IV hydrocortisone plan is to decrease the dose from today. Afebrile. Blood pressures are stable. Urine culture is positive for Klebsiella to discontinue IV Vanco and to continue cefepime 05/06/20-WBC count is 22,000 today improving. Plan is to discontinue steroids. Presently on IV ceftriaxone. Febrile. pulse ox is 93% on room air. 05/07/2020-WBC count is 20,700 improving. Plan is to continue IV ceftriaxone at this time. Pulse ox is 92% room air. Hypoxia is resolving. Culture is positive for Klebsiella and blood cultures are negative wound culture is pending. 05/08/2020-WBC count went up to 25,700, afebrile, urine culture is positive for Klebsiella blood cultures are negative wound cultures are negative so far. To add IV vancomycin to Flagyl and IV ceftriaxone. Repeat the labs tomorrow. 05/09/2020-WBC count is 22,800 with cultures came back positive for gram-positive cocci present on vancomycin, ceftriaxone, Flagyl. No acute events in the last 24 hours. Surgery is following the patient. 05/10/2020 White blood cell count is still 21,000. Continue current antibiotics. Rocephin therapy initially for the urinary tract infection and pneumonia has completed its course. Continue to monitor white blood cell count. Pneumonia has clinically resolved. (3) Shortness of breath Is this a current diagnosis for this admission?: Yes Plan: Secondary to #1, incentive spirometry, flutter valve as tolerated, supplemental oxygen, albuterol and Atrovent, 05/03/2020-pulse ox is 95% on room air not in shortness of breath at the time of my examination. 05/05/2020-pulse ox is 93% on 1 end of liters. Oxygen requirements are decreasing. 05/06/2020-shortness of breath is resolving. Presently on room air pulse ox is 93%. 05/09/2020-pulse ox today is 95% on 3 L. Stable. 05/10/2020 Continue oxygen supplementation Taper to off as tolerated (4) Acute renal failure (ARF) Is this a current diagnosis for this admission?: Yes Plan: Likely secondary to #1, IV fluid challenge, avoid nephrotoxic meds and doses follow-up chemistry 05/03/2020-serum creatinine is 2.26 at the time of admission with IV fluids to 1.52. Acute kidney injury is resolving. 05/04/2020-serum creatinine today is 1.25. Acute kidney injury is resolving. 05/05/2020-serum creatinine today is 1.3 stable. 05/06/2020-serum creatinine is 1.22 stable. 05/07/2020 serum creatinine today is 1.2 stable. 05/08/2020-serum creatinine today is 1.12 stable. 05/09/2020-serum creatinine today is 1.05 kidney function is stable. 05/10/2020 Serum creatinine is normal. It appears that the acute kidney injury has resolved. We will continue to monitor closely. (5) Elevated troponin I level Is this a current diagnosis for this admission?: Yes Plan: Likely secondary to #1, complicated by acute renal failure, denies cardiac symptoms, EKG unremarkable, trend serial cardiac enzymes. 05/03/2020-patient denies any chest pains on admission troponin is 0.7 latest troponin is 0.2. 05/10/2020 Troponin levels were trending down. No longer obtaining serial troponin levels. (6) Dementia Qualifiers: Alzheimer's disease onset: unspecified onset Dementia behavioral disturbance: without behavioral disturbance Is this a current diagnosis for this admission?: Yes Plan: Continue outpatient regiment and supportive care. 05/10/2020 The patient is in long-term care because of his dementia. Continue current regimen. (7) Hyponatremia Is this a current diagnosis for this admission?: Yes Plan: 05/03/2020-serum sodium is 128.6 admission with IV fluids improved to 131.3. Hyponatremia most likely secondary to dehydration. Plan is to repeat the labs tomorrow. 05/04/2020-serum sodium today is 133.6. Hyponatremia is resolving. Patient is receiving IV fluids at this time. 05/05/2020-serum sodium is around 133. Patient has persistent hyponatremia. Receiving IV fluids at this time. Patient is not on IV fluids at this time. 05/06/20-serum sodium is 135 hyponatremia is resolved. 05/07/2020-serum sodium is 136 hyponatremia is resolved. 05/08/20-serum sodium is 135 hyponatremia resolved. 05/09/2020-latest serum sodium is 136.7 stable. 05/10/2020 Resolved. Serum sodium is normal. We will continue to monitor. (8) Paroxysmal A-fib Is this a current diagnosis for this admission?: Yes Plan: 05/06/2020-patient went into A. fib with RVR 2 days ago started on Cardizem drip converted. Presently on p.o. Cardizem CD 120 mg twice daily and a heart rate is around 70s. Not on anticoagulation because of the age and other comorbidities he is not a candidate for anticoagulation. 05/07/20-patient has history of paroxysmal A. fib rate controlled heart rate is around 72. Presently on Cardizem CD 120 mg twice a day. 05/08/2020-on examination heart is in sinus rhythm plan is to continue Cardizem CD 120 mg twice a day. Heart rate is around 75. 05/10/2020 Currently in sinus rhythm. Continue diltiazem. (9) UTI (urinary tract infection) Qualifiers: Urinary tract infection type: acute cystitis Hematuria presence: without hematuria Qualified Code(s): N30.00 - Acute cystitis without hematuria Is this a current diagnosis for this admission?: Yes Plan: 05/06/2020-urine culture is positive for Klebsiella receiving IV ceftriaxone at this time. 05/10/2020-Klebsiella pneumonia. Ceftriaxone therapy completed. (10) Rheumatoid arthritis Qualifiers: Rheumatoid arthritis location: unspecified site Rheumatoid factor presence: unspecified presence Qualified Code(s): M06.9 - Rheumatoid arthritis, unspecified Is this a current diagnosis for this admission?: Yes Plan: 05/10/2020 Continue medication regimen including methotrexate
[2020-05-10] MEDS: VANCOMYCIN HCL 750 MG in DEXTROSE 5%-WATER 250 ML IV SCH (17:56)
[2020-05-10] MEDS: DONEPEZIL HCL 5 MG TABLET PO SCH (21:30)
[2020-05-10] MEDS: OXYCODONE-ACETAMINOPHEN 5-325 MG TABLET PO PRN (23:15)
[2020-05-11] MEDS: METRONIDAZOLE 500 MG/NS RTU 500 MG/100 ML RTUPB IV SCH ×2 (00:25→05:35)
[2020-05-11] MEDS: PANTOPRAZOLE SODIUM 20 MG TABLET.DR PO SCH (05:40)
[2020-05-11 06:06] LABS: HEMATOCRIT 27.7 % (37.9-51.0); HEMOGLOBIN 9.3 g/dL (13.5-17.0); MEAN CORPUSCULAR HEMOGLOBIN 32.2 pg (27.0-33.4); MEAN CORPUSCULAR HGB CONC 33.4 g/dL (32.0-36.0); MEAN CORPUSCULAR VOLUME 96 fl (80-97); PLATELET COUNT 328 10^3/uL (150-450); RED BLOOD COUNT 2.88 10^6/uL (4.35-5.55)
[2020-05-11] MEDS: VANCOMYCIN HCL 750 MG in DEXTROSE 5%-WATER 250 ML IV SCH ×2 (07:19→17:20)
--- NOTE | 2020-05-11 09:08 | PDOC PROGRESS REPORT ---
Subjective Progress Note for:: 05/11/20 Subjective:: awake comfortable Reason For Visit: PNA SEPSIS ARF Physical Exam Vital Signs: Temp Pulse Resp BP Pulse Ox 97.6 F 90 18 136/89 H 95 05/11/20 04:00 05/11/20 04:00 05/11/20 04:00 05/11/20 04:00 05/11/20 04:00 Intake & Output 05/10/20 05/11/20 05/12/20 06:59 06:59 06:59 Intake Total 1045 1250 100 Output Total 1150 820 Balance -105 430 100 Weight 67.4 kg 67.4 kg General appearance: PRESENT: no acute distress Head exam: PRESENT: normocephalic Eye exam: PRESENT: EOMI Mouth exam: PRESENT: moist Neck exam: PRESENT: full ROM Respiratory exam: PRESENT: clear to auscultation jennifer Cardiovascular exam: PRESENT: RRR Pulses: PRESENT: +1 pedal pulses bilateral, +2 pedal pulses bilateral Breast: PRESENT: Normal GI/Abdominal exam: PRESENT: soft Rectal exam: PRESENT: deferred Gentrourinary exam: PRESENT: other - left hemiscrotum and left groin wound clean, dressed, granulation tissue some superficial necrosis in bed of left groin wound rhiannon in place testicle seems fixed in left hemiscrotum Extremities exam: PRESENT: full ROM Musculoskeletal exam: PRESENT: full ROM Neurological exam: PRESENT: awake Skin exam: PRESENT: dry Results Laboratory Results: 05/11/20 05:42 05/10/20 04:57 05/11/20 05:42 WBC 18.0 H RBC 2.88 L Hgb 9.3 L Hct 27.7 L MCV 96 MCH 32.2 MCHC 33.4 RDW 15.0 H Plt Count 328 05/07/20 05:50 Buttocks - Decubitis Ulcer Gram Stain - Final 05/07/20 05:50 Buttocks - Decubitis Ulcer Wound Culture - Final Mrsa (Meth Resis Staph Aureus) C.albicans/C.dubliniensis 05/08/20 15:57 Decubitis Ulcer - Buttocks Gram Stain - Final 05/08/20 15:57 Decubitis Ulcer - Buttocks Wound Culture - Final Mrsa (Meth Resis Staph Aureus) No Anaerobic Organisms 05/02/20 05/02/20 05/03/20 17:28 17:28 00:38 Creatine Kinase 310 H Troponin I 0.703 0.422 05/03/20 05/03/20 05/03/20 07:57 10:21 20:07 Creatine Kinase Troponin I Cancelled 0.240 0.201 Impressions: Chest X-Ray 05/02/20 18:11 IMPRESSION: Elevated left hemidiaphragm. Cannot exclude left lower lobe pneumonia. Abdomen/Pelvis CT 05/02/20 19:39 IMPRESSION: Artifact from the patient's arms. Imaging is degraded by patient motion, with resultant artifact. The best possible images were obtained. Bibasilar airspace disease left greater than right. Most of this is atelectasis. There is a small consolidated component left lower lobe. Possibly pneumonia is raised. Cholelithiasis without acute cholecystitis. No acute intra-abdominal process is seen. Assessment & Plan - Diagnosis (1) Decubital ulcer Is this a current diagnosis for this admission?: Yes - Plan Summary Plan Summary: s/p debridement of founiers gangrene wound being dressed wet to dry starting to granulate will cont dresing changes when swelling decreased, will consider closure of left scrotum.
[2020-05-11] MEDS: ENOXAPARIN SODIUM INJ 80 MG/0.8 ML DISP.SYRIN SUBCUT SCH (09:40)
[2020-05-11] MEDS: MEMANTINE HCL 10 MG TABLET PO SCH ×2 (09:47→17:20)
[2020-05-11] MEDS: FOLIC ACID 1 MG TABLET PO SCH (09:47)
[2020-05-11] MEDS: TAMSULOSIN HCL 0.4 MG CAP.SR.24H PO SCH (09:47)
[2020-05-11] MEDS: DILTIAZEM HCL 120 MG CAP.SR.24H PO SCH ×2 (09:47→22:04)
[2020-05-11] MEDS: DOCUSATE SODIUM 100 MG CAPSULE PO SCH ×2 (09:47→17:20)
[2020-05-11] MEDS: LORATADINE 10 MG TABLET PO SCH (09:47)
[2020-05-11] MEDS: CYANOCOBALAMIN (VITAMIN B-12) 1,000 MCG TABLET PO SCH (09:47)
[2020-05-11] MEDS: ASPIRIN 81 MG TABLET, ENT COATED PO SCH (09:47)
[2020-05-11] MEDS: SENNOSIDES/DOCUSATE 8.6-50 MG 1 EACH TABLET PO SCH (09:47)
[2020-05-11] MEDS: ASCORBIC ACID 500 MG TABLET PO SCH ×2 (09:48→17:20)
[2020-05-11] MEDS: ZINC SULFATE 220 MG CAPSULE PO SCH (09:48)
[2020-05-11] MEDS: FLUTICASONE NASAL SPRAY 50 MCG/SPRY 120 SPRAY/16 GM NASL SCH (09:48)
[2020-05-11] MEDS: COLLAGENASE CLOSTRIDIUM HIST. OINT 30 GM TOP SCH (09:48)
[2020-05-11] MEDS: MELOXICAM 7.5 MG TABLET PO SCH (09:48)
[2020-05-11] MEDS: CHOLECALCIFEROL (D3) 1,000 UNIT (25 MCG) TABLET PO SCH (09:48)
[2020-05-11] MEDS: FLUCONAZOLE 100 MG TABLET PO SCH (11:02)
--- NOTE | 2020-05-11 11:05 | PDOC PROGRESS REPORT ---
Subjective Progress Note for:: 05/11/20 Subjective:: Resting comfortably. He had his dressing changed earlier today so I did not take the dressing. The nurse reports it is quite painful. The patient actually reports that he is not having any pain but he does have underlying dementia. Reason For Visit: PNA SEPSIS ARF Physical Exam Vital Signs: Temp Pulse Resp BP Pulse Ox 97.8 F 69 12 135/70 H 98 05/11/20 08:00 05/11/20 08:00 05/11/20 08:00 05/11/20 08:00 05/11/20 08:00 Intake & Output 05/10/20 05/11/20 05/12/20 06:59 06:59 06:59 Intake Total 1045 1250 610 Output Total 1150 820 Balance -105 430 610 Weight 67.4 kg 67.4 kg General appearance: PRESENT: no acute distress, cooperative, thin, well- developed Head exam: PRESENT: atraumatic, normocephalic Ear exam: PRESENT: normal external ear exam. ABSENT: bleeding, drainage Mouth exam: PRESENT: moist, tongue midline Respiratory exam: PRESENT: clear to auscultation jennifer, symmetrical, unlabored. ABSENT: rales, rhonchi, tachypnea, wheezes Cardiovascular exam: PRESENT: RRR, +S1, +S2. ABSENT: diastolic murmur, irregular rhythm, systolic murmur GI/Abdominal exam: PRESENT: normal bowel sounds, soft. ABSENT: distended, guarding, tenderness Rectal exam: PRESENT: deferred Extremities exam: ABSENT: pedal edema Musculoskeletal exam: PRESENT: normal inspection Neurological exam: PRESENT: alert, awake, oriented to person, oriented to situation Psychiatric exam: PRESENT: appropriate affect. ABSENT: agitated, anxious Focused psych exam: ABSENT: delusional, paranoid, restlessness Results Laboratory Results: 05/11/20 05:42 05/10/20 04:57 05/11/20 05:42 WBC 18.0 H RBC 2.88 L Hgb 9.3 L Hct 27.7 L MCV 96 MCH 32.2 MCHC 33.4 RDW 15.0 H Plt Count 328 05/07/20 05:50 Buttocks - Decubitis Ulcer Gram Stain - Final 05/07/20 05:50 Buttocks - Decubitis Ulcer Wound Culture - Final Mrsa (Meth Resis Staph Aureus) C.albicans/C.dubliniensis 05/08/20 15:57 Decubitis Ulcer - Buttocks Gram Stain - Final 05/08/20 15:57 Decubitis Ulcer - Buttocks Wound Culture - Final Mrsa (Meth Resis Staph Aureus) No Anaerobic Organisms 05/02/20 05/02/20 05/03/20 17:28 17:28 00:38 Creatine Kinase 310 H Troponin I 0.703 0.422 05/03/20 05/03/20 05/03/20 07:57 10:21 20:07 Creatine Kinase Troponin I Cancelled 0.240 0.201 Impressions: Chest X-Ray 05/02/20 18:11 IMPRESSION: Elevated left hemidiaphragm. Cannot exclude left lower lobe pneumonia. Abdomen/Pelvis CT 05/02/20 19:39 IMPRESSION: Artifact from the patient's arms. Imaging is degraded by patient motion, with resultant artifact. The best possible images were obtained. Bibasilar airspace disease left greater than right. Most of this is atelectasis. There is a small consolidated component left lower lobe. Possibly pneumonia is raised. Cholelithiasis without acute cholecystitis. No acute intra-abdominal process is seen. 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 Extensive debridement in the perineum and buttock/ischial areas. As noted by Dr. 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 He will be n.p.o. after midnight tonight for further surgical intervention tomorrow. The abscess fluid was positive for MRSA and Naty. The patient is currently on fluconazole, metronidazole and vancomycin. 05/11/2020 No anaerobes were identified. The patient does have methicillin-resistant staph aureus. I am going to change the metronidazole to clindamycin. This also has some anaerobic coverage but will primarily work with the vancomycin for the MRSA infection. I would expect to see a quicker decrease in the white blood cell count with the change in antibiotics. No further surgery today. I did speak with the patient and he reports that he makes his own decisions. I find this somewhat difficult to believe due to his dementia however I did review the possibility of LTACH placement for his complex wound. The benefits over replacement at a group home facility would be daily physician visits, focused complex wound care, regular nutritional assessment and monitoring. (2) Left lower lobe pneumonia Qualifiers: Pneumonia type: due to unspecified organism Qualified Code(s): J18.9 - Pneumonia, unspecified organism Is this a current diagnosis for this admission?: Yes Plan: Pneumonia care set, significant suspicion of COVID, follow-up labs otherwise empiric antibiotics, follow-up CBC, blood culture and COVID testing. 05/03/2020-WBC count went up to 28,000 today presently on ceftriaxone and IV vancomycin. Call with test is pending. Latest temperature is 98.5 with blood pressure 134/75 respiratory rate is 20 pulse ox is 95% room air. Plan is to continue the IV antibiotic therapy waiting for the culture reports. 05/04/2020-WBC count is 26,000 today urine culture is positive for Klebsiella pneumonia receiving cefepime and vancomycin. Temperature today is 98. Plan is to continue the IV antibiotic therapy at this time. blood Cultures are negative so far. 05/05/20-WBC count is 24,600 patient is on IV hydrocortisone plan is to decrease the dose from today. Afebrile. Blood pressures are stable. Urine culture is positive for Klebsiella to discontinue IV Vanco and to continue cefepime 05/06/20-WBC count is 22,000 today improving. Plan is to discontinue steroids. Presently on IV ceftriaxone. Febrile. pulse ox is 93% on room air. 05/07/2020-WBC count is 20,700 improving. Plan is to continue IV ceftriaxone at this time. Pulse ox is 92% room air. Hypoxia is resolving. Culture is positive for Klebsiella and blood cultures are negative wound culture is pending. 05/08/2020-WBC count went up to 25,700, afebrile, urine culture is positive for Klebsiella blood cultures are negative wound cultures are negative so far. To add IV vancomycin to Flagyl and IV ceftriaxone. Repeat the labs tomorrow. 05/09/2020-WBC count is 22,800 with cultures came back positive for gram-positive cocci present on vancomycin, ceftriaxone, Flagyl. No acute events in the last 24 hours. Surgery is following the patient. 05/10/2020 White blood cell count is still 21,000. Continue current antibiotics. Rocephin therapy initially for the urinary tract infection and pneumonia has completed its course. Continue to monitor white blood cell count. Pneumonia has clinically resolved. 05/11/2020 Clinically resolved. Antibiotics now focused on groin. (3) Shortness of breath Is this a current diagnosis for this admission?: Yes Plan: Secondary to #1, incentive spirometry, flutter valve as tolerated, supplemental oxygen, albuterol and Atrovent, 05/03/2020-pulse ox is 95% on room air not in shortness of breath at the time of my examination. 05/05/2020-pulse ox is 93% on 1 end of liters. Oxygen requirements are decreasing. 05/06/2020-shortness of breath is resolving. Presently on room air pulse ox is 93%. 05/09/2020-pulse ox today is 95% on 3 L. Stable. 05/10/2020 Continue oxygen supplementation Taper to off as tolerated (05/11/2020-error, patient on room air) 05/11/2020 Currently on room air with adequate oxygenation (4) Acute renal failure (ARF) Qualifiers: Acute renal failure type: unspecified Qualified Code(s): N17.9 - Acute kidney failure, unspecified Is this a current diagnosis for this admission?: Yes Plan: Likely secondary to #1, IV fluid challenge, avoid nephrotoxic meds and doses follow-up chemistry 05/03/2020-serum creatinine is 2.26 at the time of admission with IV fluids to 1.52. Acute kidney injury is resolving. 05/04/2020-serum creatinine today is 1.25. Acute kidney injury is resolving. 05/05/2020-serum creatinine today is 1.3 stable. 05/06/2020-serum creatinine is 1.22 stable. 05/07/2020 serum creatinine today is 1.2 stable. 05/08/2020-serum creatinine today is 1.12 stable. 05/09/2020-serum creatinine today is 1.05 kidney function is stable. 05/10/2020 Serum creatinine is normal. It appears that the acute kidney injury has resolved. We will continue to monitor closely. (5) Elevated troponin I level Is this a current diagnosis for this admission?: Yes Plan: Likely secondary to #1, complicated by acute renal failure, denies cardiac symptoms, EKG unremarkable, trend serial cardiac enzymes. 05/03/2020-patient denies any chest pains on admission troponin is 0.7 latest troponin is 0.2. 05/10/2020 Troponin levels were trending down. No longer obtaining serial troponin levels. [place] to have a supply/demand mismatch (6) Dementia Qualifiers: Alzheimer's disease onset: unspecified onset Dementia behavioral disturbance: without behavioral disturbance Is this a current diagnosis for this admission?: Yes Plan: Continue outpatient regiment and supportive care. 05/10/2020 The patient is in long-term care because of his dementia. Continue current regimen. (7) Hyponatremia Is this a current diagnosis for this admission?: Yes Plan: 05/03/2020-serum sodium is 128.6 admission with IV fluids improved to 131.3. Hyponatremia most likely secondary to dehydration. Plan is to repeat the labs tomorrow. 05/04/2020-serum sodium today is 133.6. Hyponatremia is resolving. Patient is receiving IV fluids at this time. 05/05/2020-serum sodium is around 133. Patient has persistent hyponatremia. Receiving IV fluids at this time. Patient is not on IV fluids at this time. 05/06/20-serum sodium is 135 hyponatremia is resolved. 05/07/2020-serum sodium is 136 hyponatremia is resolved. 05/08/20-serum sodium is 135 hyponatremia resolved. 05/09/2020-latest serum sodium is 136.7 stable. 05/10/2020 Resolved. Serum sodium is normal. We will continue to monitor. (8) Paroxysmal A-fib Is this a current diagnosis for this admission?: Yes Plan: 05/06/2020-patient went into A. fib with RVR 2 days ago started on Cardizem drip converted. Presently on p.o. Cardizem CD 120 mg twice daily and a heart rate is around 70s. Not on anticoagulation because of the age and other comorbidities he is not a candidate for anticoagulation. 05/07/20-patient has history of paroxysmal A. fib rate controlled heart rate is around 72. Presently on Cardizem CD 120 mg twice a day. 05/08/2020-on examination heart is in sinus rhythm plan is to continue Cardizem CD 120 mg twice a day. Heart rate is around 75. 05/10/2020 Currently in sinus rhythm. Continue diltiazem. 05/11/2020 Now the patient is back in sinus rhythm I will discontinue Lovenox. In addition cardiology's note recommends no long-term anticoagulation for multiple reasons. (9) UTI (urinary tract infection) Qualifiers: Urinary tract infection type: acute cystitis Hematuria presence: without hematuria Qualified Code(s): N30.00 - Acute cystitis without hematuria Is this a current diagnosis for this admission?: Yes Plan: 05/06/2020-urine culture is positive for Klebsiella receiving IV ceftriaxone at this time. 05/10/2020-Klebsiella pneumonia. Ceftriaxone therapy completed. (10) Rheumatoid arthritis Qualifiers: Rheumatoid arthritis location: unspecified site Rheumatoid factor presence: unspecified presence Qualified Code(s): M06.9 - Rheumatoid arthritis, unspecified Is this a current diagnosis for this admission?: Yes Plan: 05/10/2020 Continue medication regimen including methotrexate 05/11/2020 Continue folic acid and Rheumatrex (11) MRSA infection Is this a current diagnosis for this admission?: Yes Plan: 05/11/2020 Discontinue Flagyl and start clindamycin and continue vancomycin - Time Time Spent with patient: 15-24 minutes Medications reviewed and adjusted accordingly: Yes Anticipated discharge: Other
[2020-05-11 12:10] LABS: APPEARANCE,URINE CLEAR; BILIRUBIN,URINE NEGATIVE (NEGATIVE); COLOR,URINE YELLOW; GLUCOSE, URINE NEGATIVE (NEGATIVE); KETONES,URINE NEGATIVE (NEGATIVE); LEUKOCYTE ESTERASE,URINE TRACE (NEGATIVE); NITRITE,URINE NEGATIVE (NEGATIVE); PROTEIN,URINE NEGATIVE (NEGATIVE); URINE SPECIFIC GRAVITY 1.012; UROBILINOGEN,URINE NEGATIVE mg/dL (<2.0)
[2020-05-11] MEDS: CLINDAMYCIN 600 MG/D5W RTU 600 MG/50 ML RTUPB IV SCH ×2 (13:33→22:04)
[2020-05-11] MEDS: DONEPEZIL HCL 5 MG TABLET PO SCH (22:02)
[2020-05-12] MEDS: CLINDAMYCIN 600 MG/D5W RTU 600 MG/50 ML RTUPB IV SCH ×3 (06:37→22:29)
[2020-05-12] MEDS: COLLAGENASE CLOSTRIDIUM HIST. OINT 30 GM TOP SCH ×2 (06:41→16:10)
[2020-05-12 06:42] LABS: VANCOMYCIN,TROUGH 14.5 ug/mL (5.0-20.0)
[2020-05-12] MEDS: PANTOPRAZOLE SODIUM 20 MG TABLET.DR PO SCH (06:44)
[2020-05-12] MEDS: VANCOMYCIN HCL 750 MG in DEXTROSE 5%-WATER 250 ML IV SCH ×2 (07:46→18:43)
--- NOTE | 2020-05-12 09:12 | PDOC PROGRESS REPORT ---
Subjective Progress Note for:: 05/12/20 Subjective:: Patient is resting comfortably in bed. He has no complaints. He did not eat much of his breakfast this morning. Reason For Visit: PNA SEPSIS ARF Physical Exam Vital Signs: Temp Pulse Resp BP Pulse Ox 98.0 F 85 12 141/71 H 97 05/12/20 07:53 05/12/20 07:53 05/12/20 07:53 05/12/20 07:53 05/12/20 07:53 Intake & Output 05/11/20 05/12/20 05/13/20 06:59 06:59 06:59 Intake Total 1250 1220 50 Output Total 820 1200 Balance 430 20 50 Weight 67.4 kg 67.4 kg General appearance: PRESENT: no acute distress, cooperative, well-developed Head exam: PRESENT: atraumatic, normocephalic Eye exam: PRESENT: conjunctiva pink. ABSENT: scleral icterus Ear exam: PRESENT: normal external ear exam. ABSENT: bleeding, drainage Mouth exam: PRESENT: moist, tongue midline Respiratory exam: PRESENT: clear to auscultation jennifer, symmetrical, unlabored. ABSENT: rales, rhonchi, tachypnea, wheezes Cardiovascular exam: PRESENT: RRR, +S1, +S2. ABSENT: diastolic murmur, irregular rhythm, tachycardia GI/Abdominal exam: PRESENT: normal bowel sounds, soft. ABSENT: distended, guarding, tenderness Rectal exam: PRESENT: deferred Gentrourinary exam: PRESENT: indwelling catheter Extremities exam: ABSENT: joint swelling, pedal edema Musculoskeletal exam: PRESENT: ambulatory, normal inspection. ABSENT: deformity Neurological exam: PRESENT: alert, awake, oriented to person, oriented to situation, CN II-XII grossly intact. ABSENT: altered Psychiatric exam: PRESENT: flat affect. ABSENT: agitated, anxious Focused psych exam: ABSENT: delusional, paranoid, restlessness Skin exam: PRESENT: other - Gauze dressing in the perineal wound Results Laboratory Results: 05/11/20 05:42 05/12/20 05:42 05/11/20 05/12/20 11:43 05:42 Creatinine 1.06 Est GFR ( Amer) > 60 Urine Color YELLOW Urine Appearance CLEAR Urine pH 6.0 Ur Specific [place] 1.012 Urine Protein NEGATIVE Urine Glucose (UA) NEGATIVE Urine Ketones NEGATIVE Urine Blood NEGATIVE Urine Nitrite NEGATIVE Ur Leukocyte Esterase TRACE H Urine WBC (Auto) 3 Urine RBC (Auto) 2 05/02/20 05/02/20 05/03/20 17:28 17:28 00:38 Creatine Kinase 310 H Troponin I 0.703 0.422 05/03/20 05/03/20 05/03/20 07:57 10:21 20:07 Creatine Kinase Troponin I Cancelled 0.240 0.201 Impressions: Chest X-Ray 05/02/20 18:11 IMPRESSION: Elevated left hemidiaphragm. Cannot exclude left lower lobe pneumonia. Abdomen/Pelvis CT 05/02/20 19:39 IMPRESSION: Artifact from the patient's arms. Imaging is degraded by patient motion, with resultant artifact. The best possible images were obtained. Bibasilar airspace disease left greater than right. Most of this is atelectasis. There is a small consolidated component left lower lobe. Possibly pneumonia is raised. Cholelithiasis without acute cholecystitis. No acute intra-abdominal process is seen. 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 Extensive debridement in the perineum and buttock/ischial areas. As noted by Dr. 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 He will be n.p.o. after midnight tonight for further surgical intervention tomorrow. The abscess fluid was positive for MRSA and Naty. The patient is currently on fluconazole, metronidazole and vancomycin. 05/11/2020 No anaerobes were identified. The patient does have methicillin-resistant staph aureus. I am going to change the metronidazole to clindamycin. This also has some anaerobic coverage but will primarily work with the vancomycin for the MRSA infection. I would expect to see a quicker decrease in the white blood cell count with the change in antibiotics. No further surgery today. I did speak with the patient and he reports that he makes his own decisions. I find this somewhat difficult to believe due to his dementia however I did review the possibility of LTACH placement for his complex wound. The benefits over r eplacement at a detention facility would be daily physician visits, focused complex wound care, regular nutritional assessment and monitoring. 05/12/2020 The plan is for delayed primary closure. An LTAC would give the patient the most aggressive wound care. Discharge planning has sent referrals. (2) Left lower lobe pneumonia Qualifiers: Pneumonia type: due to unspecified organism Qualified Code(s): J18.9 - Pneumonia, unspecified organism Is this a current diagnosis for this admission?: Yes Plan: Pneumonia care set, significant suspicion of COVID, follow-up labs otherwise empiric antibiotics, follow-up CBC, blood culture and COVID testing. 05/03/2020-WBC count went up to 28,000 today presently on ceftriaxone and IV vancomycin. Call with test is pending. Latest temperature is 98.5 with blood pressure 134/75 respiratory rate is 20 pulse ox is 95% room air. Plan is to continue the IV antibiotic therapy waiting for the culture reports. 05/04/2020-WBC count is 26,000 today urine culture is positive for Klebsiella pneumonia receiving cefepime and vancomycin. Temperature today is 98. Plan is to continue the IV antibiotic therapy at this time. blood Cultures are negative so far. 05/05/20-WBC count is 24,600 patient is on IV hydrocortisone plan is to decrease the dose from today. Afebrile. Blood pressures are stable. Urine culture is positive for Klebsiella to discontinue IV Vanco and to continue cefepime 05/06/20-WBC count is 22,000 today improving. Plan is to discontinue steroids. Presently on IV ceftriaxone. Febrile. pulse ox is 93% on room air. 05/07/2020-WBC count is 20,700 improving. Plan is to continue IV ceftriaxone at this time. Pulse ox is 92% room air. Hypoxia is resolving. Culture is positive for Klebsiella and blood cultures are negative wound culture is pending. 05/08/2020-WBC count went up to 25,700, afebrile, urine culture is positive for Klebsiella blood cultures are negative wound cultures are negative so far. To add IV vancomycin to Flagyl and IV ceftriaxone. Repeat the labs tomorrow. 05/09/2020-WBC count is 22,800 with cultures came back positive for gram-positive cocci present on vancomycin, ceftriaxone, Flagyl. No acute events in the last 24 hours. Surgery is following the patient. 05/10/2020 White blood cell count is still 21,000. Continue current antibiotics. Rocephin therapy initially for the urinary tract infection and pneumonia has completed its course. Continue to monitor white blood cell count. Pneumonia has clinically resolved. 05/11/2020 Clinically resolved. Antibiotics now focused on groin. 05/12/2020 Therapy completed (3) Shortness of breath Is this a current diagnosis for this admission?: Yes Plan: Secondary to #1, incentive spirometry, flutter valve as tolerated, supplemental oxygen, albuterol and Atrovent, 05/03/2020-pulse ox is 95% on room air not in shortness of breath at the time of my examination. 05/05/2020-pulse ox is 93% on 1 end of liters. Oxygen requirements are decreasing. 05/06/2020-shortness of breath is resolving. Presently on room air pulse ox is 93%. 05/09/2020-pulse ox today is 95% on 3 L. Stable. 05/10/2020 Continue oxygen supplementation Taper to off as tolerated (05/11/2020-error, patient on room air) 05/11/2020 Currently on room air with adequate oxygenation (4) Acute renal failure (ARF) Qualifiers: Acute renal failure type: unspecified Qualified Code(s): N17.9 - Acute kidney failure, unspecified Is this a current diagnosis for this admission?: Yes Plan: Likely secondary to #1, IV fluid challenge, avoid nephrotoxic meds and doses follow-up chemistry 05/03/2020-serum creatinine is 2.26 at the time of admission with IV fluids to 1.52. Acute kidney injury is resolving. 05/04/2020-serum creatinine today is 1.25. Acute kidney injury is resolving. 05/05/2020-serum creatinine today is 1.3 stable. 05/06/2020-serum creatinine is 1.22 stable. 05/07/2020 serum creatinine today is 1.2 stable. 05/08/2020-serum creatinine today is 1.12 stable. 05/09/2020-serum creatinine today is 1.05 kidney function is stable. 05/10/2020 Serum creatinine is normal. It appears that the acute kidney injury has resolved. We will continue to monitor closely. (5) Elevated troponin I level Is this a current diagnosis for this admission?: Yes Plan: Likely secondary to #1, complicated by acute renal failure, denies cardiac symptoms, EKG unremarkable, trend serial cardiac enzymes. 05/03/2020-patient denies any chest pains on admission troponin is 0.7 latest troponin is 0.2. 05/10/2020 Troponin levels were trending down. No longer obtaining serial troponin levels. [place] to have a supply/demand mismatch 05/12/2020 No evidence of acute coronary syndrome. No longer trending troponins. (6) Dementia Qualifiers: Alzheimer's disease onset: unspecified onset Dementia behavioral disturbance: without behavioral disturbance Is this a current diagnosis for this admission?: Yes Plan: Continue outpatient regiment and supportive care. 05/10/2020 The patient is in long-term care because of his dementia. Continue current regimen. (7) Hyponatremia Is this a current diagnosis for this admission?: Yes Plan: 05/03/2020-serum sodium is 128.6 admission with IV fluids improved to 131.3. Hy ponatremia most likely secondary to dehydration. Plan is to repeat the labs tomorrow. 05/04/2020-serum sodium today is 133.6. Hyponatremia is resolving. Patient is receiving IV fluids at this time. 05/05/2020-serum sodium is around 133. Patient has persistent hyponatremia. Receiving IV fluids at this time. Patient is not on IV fluids at this time. 05/06/20-serum sodium is 135 hyponatremia is resolved. 05/07/2020-serum sodium is 136 hyponatremia is resolved. 05/08/20-serum sodium is 135 hyponatremia resolved. 05/09/2020-latest serum sodium is 136.7 stable. 05/10/2020 Resolved. Serum sodium is normal. We will continue to monitor. 05/12/2020 Serum sodium has been normal. Laboratory studies ordered for tomorrow. (8) Paroxysmal A-fib Is this a current diagnosis for this admission?: Yes Plan: 05/06/2020-patient went into A. fib with RVR 2 days ago started on Cardizem drip converted. Presently on p.o. Cardizem CD 120 mg twice daily and a heart rate is around 70s. Not on anticoagulation because of the age and other comorbidities he is not a candidate for anticoagulation. 05/07/20-patient has history of paroxysmal A. fib rate controlled heart rate is around 72. Presently on Cardizem CD 120 mg twice a day. 05/08/2020-on examination heart is in sinus rhythm plan is to continue Cardizem CD 120 mg twice a day. Heart rate is around 75. 05/10/2020 Currently in sinus rhythm. Continue diltiazem. 05/11/2020 Now the patient is back in sinus rhythm I will discontinue Lovenox. In addition cardiology's note recommends no long-term anticoagulation for multiple reasons. 05/12/2020 Continuing in sinus rhythm. Continue current medication with good rate control. (9) UTI (urinary tract infection) Qualifiers: Urinary tract infection type: acute cystitis Hematuria presence: without hematuria Qualified Code(s): N30.00 - Acute cystitis without hematuria Is this a current diagnosis for this admission?: Yes Plan: 05/06/2020-urine culture is positive for Klebsiella receiving IV ceftriaxone at this time. 05/10/2020-Klebsiella pneumonia. Ceftriaxone therapy completed. (10) Rheumatoid arthritis Qualifiers: Rheumatoid arthritis location: unspecified site Rheumatoid factor presence: unspecified presence Qualified Code(s): M06.9 - Rheumatoid arthritis, unspecified Is this a current diagnosis for this admission?: Yes Plan: 05/10/2020 Continue medication regimen including methotrexate 05/11/2020 Continue folic acid and Rheumatrex 05/12/2020 With long-term use of methotrexate the patient should have monitoring labs regularly. (11) MRSA infection Is this a current diagnosis for this admission?: Yes Plan: 05/11/2020 Discontinue Flagyl and start clindamycin and continue vancomycin 05/12/2020 See tomorrow. I expect a more noticeable improvement with the use of clindamycin. - Time Time Spent with patient: 15-24 minutes Medications reviewed and adjusted accordingly: Yes Anticipated discharge: Other - Long-term acute [facility] hospital Within: within 48 hours
--- NOTE | 2020-05-12 09:27 | PDOC PROGRESS REPORT ---
Subjective Progress Note for:: 05/12/20 Reason For Visit: PNA SEPSIS ARF Physical Exam Vital Signs: Temp Pulse Resp BP Pulse Ox 98.0 F 85 12 141/71 H 97 05/12/20 07:53 05/12/20 07:53 05/12/20 07:53 05/12/20 07:53 05/12/20 07:53 Intake & Output 05/11/20 05/12/20 05/13/20 06:59 06:59 06:59 Intake Total 1250 1220 50 Output Total 820 1200 Balance 430 20 50 Weight 67.4 kg 67.4 kg Results Laboratory Results: 05/11/20 05:42 05/12/20 05:42 05/11/20 05/12/20 11:43 05:42 Creatinine 1.06 Est GFR ( Amer) > 60 Urine Color YELLOW Urine Appearance CLEAR Urine pH 6.0 Ur Specific [place] 1.012 Urine Protein NEGATIVE Urine Glucose (UA) NEGATIVE Urine Ketones NEGATIVE Urine Blood NEGATIVE Urine Nitrite NEGATIVE Ur Leukocyte Esterase TRACE H Urine WBC (Auto) 3 Urine RBC (Auto) 2 05/02/20 05/02/20 05/03/20 17:28 17:28 00:38 Creatine Kinase 310 H Troponin I 0.703 0.422 05/03/20 05/03/20 05/03/20 07:57 10:21 20:07 Creatine Kinase Troponin I Cancelled 0.240 0.201 Impressions: Chest X-Ray 05/02/20 18:11 IMPRESSION: Elevated left hemidiaphragm. Cannot exclude left lower lobe pneumonia. Abdomen/Pelvis CT 05/02/20 19:39 IMPRESSION: Artifact from the patient's arms. Imaging is degraded by patient motion, with resultant artifact. The best possible images were obtained. Bibasilar airspace disease left greater than right. Most of this is atelectasis. There is a small consolidated component left lower lobe. Possibly pneumonia is raised. Cholelithiasis without acute cholecystitis. No acute intra-abdominal process is seen. Assessment & Plan - Diagnosis (1) Necrotizing fasciitis Is this a current diagnosis for this admission?: Yes - Plan Summary Plan Summary: This is an 89-year-old male with a necrotizing soft tissue infection of the scrotum and perineum. The patient currently has a large wound, with the left testicle slightly exposed. Currently the nurses are performing damp dressing changes. The wound appears to be free of necrotic debris or ongoing active infection. After much discussion with the patient and examination of the wound, it is felt that delayed primary closure will be possible once his swelling resolves somewhat. He will need either home health for dressing changes, or possibly a stay at a nursing facility. Continue with damp to dry dressing changes for now. Surgery will continue to follow.
[2020-05-12] MEDS: DOCUSATE SODIUM 100 MG CAPSULE PO SCH ×2 (10:00→10:26)
[2020-05-12] MEDS: FOLIC ACID 1 MG TABLET PO SCH (10:23)
[2020-05-12] MEDS: TAMSULOSIN HCL 0.4 MG CAP.SR.24H PO SCH (10:23)
[2020-05-12] MEDS: ASCORBIC ACID 500 MG TABLET PO SCH ×2 (10:23→18:44)
[2020-05-12] MEDS: MEMANTINE HCL 10 MG TABLET PO SCH ×2 (10:23→18:43)
[2020-05-12] MEDS: DILTIAZEM HCL 120 MG CAP.SR.24H PO SCH ×2 (10:24→22:29)
[2020-05-12] MEDS: ASPIRIN 81 MG TABLET, ENT COATED PO SCH (10:24)
[2020-05-12] MEDS: LORATADINE 10 MG TABLET PO SCH (10:24)
[2020-05-12] MEDS: CHOLECALCIFEROL (D3) 1,000 UNIT (25 MCG) TABLET PO SCH (10:24)
[2020-05-12] MEDS: FLUCONAZOLE 100 MG TABLET PO SCH (10:25)
[2020-05-12] MEDS: MELOXICAM 7.5 MG TABLET PO SCH (10:25)
[2020-05-12] MEDS: ZINC SULFATE 220 MG CAPSULE PO SCH (10:25)
[2020-05-12] MEDS: SENNOSIDES/DOCUSATE 8.6-50 MG 1 EACH TABLET PO SCH (10:26)
[2020-05-12] MEDS: FLUTICASONE NASAL SPRAY 50 MCG/SPRY 120 SPRAY/16 GM NASL SCH (10:26)
[2020-05-12] MEDS: CYANOCOBALAMIN (VITAMIN B-12) 1,000 MCG TABLET PO SCH (10:27)
[2020-05-12] MEDS ORDERED: LOPERAMIDE HCL 2 MG CAPSULE PO PRN (16:55)
[2020-05-12] MEDS: LACTOBACILLUS ACIDOPHILUS 250 MG TAB PO SCH (18:43)
[2020-05-12] MEDS: DONEPEZIL HCL 5 MG TABLET PO SCH (22:29)
[2020-05-13] MEDS: OXYCODONE-ACETAMINOPHEN 5-325 MG TABLET PO PRN (00:18)
[2020-05-13] MEDS: COLLAGENASE CLOSTRIDIUM HIST. OINT 30 GM TOP SCH ×2 (00:19→11:32)
[2020-05-13] MEDS: PANTOPRAZOLE SODIUM 20 MG TABLET.DR PO SCH (05:48)
[2020-05-13] MEDS: CLINDAMYCIN 600 MG/D5W RTU 600 MG/50 ML RTUPB IV SCH ×2 (05:48→13:52)
[2020-05-13 06:21] LABS: HEMATOCRIT 25.5 % (37.9-51.0); HEMOGLOBIN 8.6 g/dL (13.5-17.0); MEAN CORPUSCULAR HEMOGLOBIN 32.3 pg (27.0-33.4); MEAN CORPUSCULAR HGB CONC 33.7 g/dL (32.0-36.0); MEAN CORPUSCULAR VOLUME 96 fl (80-97); PLATELET COUNT 362 10^3/uL (150-450); RED BLOOD COUNT 2.66 10^6/uL (4.35-5.55); RED CELL DISTRIBUTION WIDTH 14.8 % (11.5-14.0); WHITE BLOOD COUNT 15.5 10^3/uL (4.0-10.5)
[2020-05-13 06:45] LABS: BLOOD UREA NITROGEN 8 mg/dL (7-20); CALCIUM 7.6 mg/dL (8.4-10.2); CARBON DIOXIDE 32 mmol/L (22-30); CHLORIDE 101 mmol/L (98-107); GLUCOSE 89 mg/dL (75-110); POTASSIUM 3.6 mmol/L (3.6-5.0)
[2020-05-13 06:53] LABS: ANION GAP 2 (5-19)
[2020-05-13] MEDS: VANCOMYCIN HCL 750 MG in DEXTROSE 5%-WATER 250 ML IV SCH (06:53)
[2020-05-13] MEDS ORDERED: ZINC SULFATE 220 MG CAPSULE PO SCH (10:00)
--- NOTE | 2020-05-13 10:56 | PDOC DISCHARGE SUMMARY ---
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 (2) Left lower lobe pneumonia Is this a current diagnosis for this admission?: Yes (3) Shortness of breath Is this a current diagnosis for this admission?: Yes (4) Acute renal failure (ARF) Is this a current diagnosis for this admission?: Yes (5) Elevated troponin I level Is this a current diagnosis for this admission?: Yes (6) Dementia Is this a current diagnosis for this admission?: Yes (7) Hyponatremia Is this a current diagnosis for this admission?: Yes (8) Paroxysmal A-fib Is this a current diagnosis for this admission?: Yes (9) UTI (urinary tract infection) Is this a current diagnosis for this admission?: Yes (10) Rheumatoid arthritis Is this a current diagnosis for this admission?: Yes (11) MRSA infection Is this a current diagnosis for this admission?: Yes - Additional Information Resuscitation Status: Full Code Discharge Diet: Cardiac Discharge Activity: Activity As Tolerated Referrals: [facility] [Provider Group] (i and d groin abscess) [facility] [Outside] Home Medications: Alfuzosin HCl [Uroxatral] 10 mg PO DAILY 05/02/20 Aspirin [Ecotrin 81 mg EC Tablet] 81 mg PO DAILY 05/02/20 Cholecalciferol (Vitamin D3) [Vitamin D3 1000 Unit Tablet] 2,000 unit PO DAILY 05/02/20 Cyanocobalamin (Vitamin B-12) [Vitamin B-12 1000 mcg Tablet] 1,000 mcg PO DAILY 05/02/20 Donepezil HCl [Aricept 5 mg Tablet] 10 mg PO QHS 05/02/20 Fluticasone Propionate [Flonase Nasal [place] 50 Mcg/[place] 16 gm] 2 spray NASL DAILY 05/02/20 Folic Acid [Folvite 1 mg Tablet] 1 mg PO DAILY 05/02/20 Loratadine [Claritin 10 mg Tablet] 10 mg PO DAILY 05/02/20 Lorazepam [Ativan 0.5 mg Tablet] 0.5 mg PO Q6HP PRN 05/02/20 Meloxicam [Mobic 7.5 mg Tablet] 7.5 mg PO DAILY 05/02/20 Memantine HCl [Namenda 10 mg Tablet] 10 mg PO BID 05/02/20 Methotrexate Sodium [Rheumatrex 2.5 mg Tablet] 5 mg PO FR@1000 05/02/20 Omeprazole 20 mg PO Q6AM 05/02/20 Propylene Glycol/Peg 400 [Systane 0.3-0.4% Eye Drops] 1 drop OU TID 05/02/20 Sennosides/Docusate Sodium [Senna Plus 8.6-50 mg Tablet] 1 tab PO DAILY 05/02/20 Vit A/Vit C/Vit E/Zinc/Copper [Preservision Areds Tablet] 1 tab PO BID 05/02/20 Ascorbic Acid [Vitamin C 500 mg Tablet] 1,000 mg PO BID tablet 05/13/20 Diltiazem HCl [Cardizem Cd 120 mg Capsule] 120 mg PO Q12 cap.sr.24h 05/13/20 Lactobacillus Acidophilus [Bacid 250 mg Tablet] 500 mg PO BID tab 05/13/20 Vancomycin HCl [Vancocin Inj 1000 mg Vial] 750 mg IV Q12A vial 05/13/20 Zinc Sulfate [Zinc-220 Capsule] 220 mg PO DAILY capsule 05/13/20 History of Present Illiness History of Present Illness: MATILDE MARINO is a 89 year old male half-way resident with a past medical history of dementia, COPD and GERD. He presents with fever of unknown duration. In the emergency department he is found to have hypotension, tachypnea and hypoxia with hyponatremia, presumed acute renal failure leukocytosis and elevated troponin with unremarkable EKG. And a left lower lobe infiltrate. Patient is intermittently cooperative, an extraordinarily poor historian and oriented to self only. He denies pain, nausea vomiting or shortness of breath. He started on empiric antibiotics and referred to the hospitalist for admission. 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 Extensive debridement in the perineum and buttock/ischial areas. As noted by Dr. 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 He will be n.p.o. after midnight tonight for further surgical intervention tomorrow. The abscess fluid was positive for MRSA and Naty. The patient is currently on fluconazole, metronidazole and vancomycin. 05/11/2020 No anaerobes were identified. The patient does have methicillin-resistant staph aureus. I am going to change the metronidazole to clindamycin. This also has some anaerobic coverage but will primarily work with the vancomycin for the MRSA infection. I would expect to see a quicker decrease in the white blood cell count with the change in antibiotics. No further surgery today. I did speak with the patient and he reports that he makes his own decisions. I find this somewhat difficult to believe due to his dementia however I did review the possibility of LTACH placement for his complex wound. The benefits over replacement at a senior living facility would be daily physician visits, focused complex wound care, regular nutritional assessment and monitoring. 05/12/2020 The plan is for delayed primary closure. An LTAC would give the patient the most aggressive wound care. Discharge planning has sent referrals. (2) Left lower lobe pneumonia Qualifiers: Pneumonia type: due to unspecified organism Qualified Code(s): J18.9 - Pneumonia, unspecified organism Is this a current diagnosis for this admission?: Yes Plan: Pneumonia care set, significant suspicion of COVID, follow-up labs otherwise empiric antibiotics, follow-up CBC, blood culture and COVID testing. 05/03/2020-WBC count went up to 28,000 today presently on ceftriaxone and IV vancomycin. Call with test is pending. Latest temperature is 98.5 with blood pressure 134/75 respiratory rate is 20 pulse ox is 95% room air. Plan is to continue the IV antibiotic therapy waiting for the culture reports. 05/04/2020-WBC count is 26,000 today urine culture is positive for Klebsiella pneumonia receiving cefepime and vancomycin. Temperature today is 98. Plan is to continue the IV antibiotic therapy at this time. blood Cultures are negative so far. 05/05/20-WBC count is 24,600 patient is on IV hydrocortisone plan is to decrease the dose from today. Afebrile. Blood pressures are stable. Urine culture is positive for Klebsiella to discontinue IV Vanco and to continue cefepime 05/06/20-WBC count is 22,000 today improving. Plan is to discontinue steroids. Presently on IV ceftriaxone. Febrile. pulse ox is 93% on room air. 05/07/2020-WBC count is 20,700 improving. Plan is to continue IV ceftriaxone at this time. Pulse ox is 92% room air. Hypoxia is resolving. Culture is positive for Klebsiella and blood cultures are negative wound culture is pending. 05/08/2020-WBC count went up to 25,700, afebrile, urine culture is positive for Klebsiella blood cultures are negative wound cultures are negative so far. To add IV vancomycin to Flagyl and IV ceftriaxone. Repeat the labs tomorrow. 05/09/2020-WBC count is 22,800 with cultures came back positive for gram-positive cocci present on vancomycin, ceftriaxone, Flagyl. No acute events in the last 24 hours. Surgery is following the patient. 05/10/2020 White blood cell count is still 21,000. Continue current antibiotics. Rocephin therapy initially for the urinary tract infection and pneumonia has completed its course. Continue to monitor white blood cell count. Pneumonia has clinically resolved. 05/11/2020 Clinically resolved. Antibiotics now focused on groin. 05/12/2020 Therapy completed (3) Shortness of breath Is this a current diagnosis for this admission?: Yes Plan: Secondary to #1, incentive spirometry, flutter valve as tolerated, supplemental oxygen, albuterol and Atrovent, 05/03/2020-pulse ox is 95% on room air not in shortness of breath at the time of my examination. 05/05/2020-pulse ox is 93% on 1 end of liters. Oxygen requirements are decrea sing. 05/06/2020-shortness of breath is resolving. Presently on room air pulse ox is 93%. 05/09/2020-pulse ox today is 95% on 3 L. Stable. 05/10/2020 Continue oxygen supplementation Taper to off as tolerated (05/11/2020-error, patient on room air) 05/11/2020 Currently on room air with adequate oxygenation (4) Acute renal failure (ARF) Qualifiers: Acute renal failure type: unspecified Qualified Code(s): N17.9 - Acute kidney failure, unspecified Is this a current diagnosis for this admission?: Yes Plan: Likely secondary to #1, IV fluid challenge, avoid nephrotoxic meds and doses follow-up chemistry 05/03/2020-serum creatinine is 2.26 at the time of admission with IV fluids to 1.52. Acute kidney injury is resolving. 05/04/2020-serum creatinine today is 1.25. Acute kidney injury is resolving. 05/05/2020-serum creatinine today is 1.3 stable. 05/06/2020-serum creatinine is 1.22 stable. 05/07/2020 serum creatinine today is 1.2 stable. 05/08/2020-serum creatinine today is 1.12 stable. 05/09/2020-serum creatinine today is 1.05 kidney function is stable. 05/10/2020 Serum creatinine is normal. It appears that the acute kidney injury has resolved. We will continue to monitor closely. (5) Elevated troponin I level Is this a current diagnosis for this admission?: Yes Plan: Likely secondary to #1, complicated by acute renal failure, denies cardiac symptoms, EKG unremarkable, trend serial cardiac enzymes. 05/03/2020-patient denies any chest pains on admission troponin is 0.7 latest troponin is 0.2. 05/10/2020 Troponin levels were trending down. No longer obtaining serial troponin levels. [place] to have a supply/demand mismatch 05/12/2020 No evidence of acute coronary syndrome. No longer trending troponins. (6) Dementia Qualifiers: Alzheimer's disease onset: unspecified onset Dementia behavioral disturbance: without behavioral disturbance Is this a current diagnosis for this admission?: Yes Plan: Continue outpatient regiment and supportive care. 05/10/2020 The patient is in long-term care because of his dementia. Continue current regimen. (7) Hyponatremia Is this a current diagnosis for this admission?: Yes Plan: 05/03/2020-serum sodium is 128.6 admission with IV fluids improved to 131.3. Hyponatremia most likely secondary to dehydration. Plan is to repeat the labs tomorrow. 05/04/2020-serum sodium today is 133.6. Hyponatremia is resolving. Patient is receiving IV fluids at this time. 05/05/2020-serum sodium is around 133. Patient has persistent hyponatremia. Receiving IV fluids at this time. Patient is not on IV fluids at this time. 05/06/20-serum sodium is 135 hyponatremia is resolved. 05/07/2020-serum sodium is 136 hyponatremia is resolved. 05/08/20-serum sodium is 135 hyponatremia resolved. 05/09/2020-latest serum sodium is 136.7 stable. 05/10/2020 Resolved. Serum sodium is normal. We will continue to monitor. 05/12/2020 Serum sodium has been normal. Laboratory studies ordered for tomorrow. (8) Paroxysmal A-fib Is this a current diagnosis for this admission?: Yes Plan: 05/06/2020-patient went into A. fib with RVR 2 days ago started on Cardizem drip converted. Presently on p.o. Cardizem CD 120 mg twice daily and a heart rate is around 70s. Not on anticoagulation because of the age and other comorbidities he is not a candidate for anticoagulation. 05/07/20-patient has history of paroxysmal A. fib rate controlled heart rate is around 72. Presently on Cardizem CD 120 mg twice a day. 05/08/2020-on examination heart is in sinus rhythm plan is to continue Cardizem CD 120 mg twice a day. Heart rate is around 75. 05/10/2020 Currently in sinus rhythm. Continue diltiazem. 05/11/2020 Now the patient is back in sinus rhythm I will discontinue Lovenox. In addition cardiology's note recommends no long-term anticoagulation for multiple reasons. 05/12/2020 Continuing in sinus rhythm. Continue current medication with good rate control. (9) UTI (urinary tract infection) Qualifiers: Urinary tract infection type: acute cystitis Hematuria presence: without hematuria Qualified Code(s): N30.00 - Acute cystitis without hematuria Is this a current diagnosis for this admission?: Yes Plan: 05/06/2020-urine culture is positive for Klebsiella receiving IV ceftriaxone at this time. 05/10/2020-Klebsiella pneumonia. Ceftriaxone therapy completed. (10) Rheumatoid arthritis Qualifiers: Rheumatoid arthritis location: unspecified site Rheumatoid factor presence: unspecified presence Qualified Code(s): M06.9 - Rheumatoid arthritis, unspecified Is this a current diagnosis for this admission?: Yes Plan: 05/10/2020 Continue medication regimen including methotrexate 05/11/2020 Continue folic acid and Rheumatrex 05/12/2020 With long-term use of methotrexate the patient should have monitoring labs regularly. (11) MRSA infection Is this a current diagnosis for this admission?: Yes Plan: 05/11/2020 Discontinue Flagyl and start clindamycin and continue vancomycin 05/12/2020 See tomorrow. I expect a more noticeable improvement with the use of clindamycin 05/13/2020 The patient would benefit from continuing vancomycin and clindamycin through May 18 for the MRSA infection in the wound. Physical Exam Vital Signs: Temp Pulse Resp BP Pulse Ox 97.6 F 71 18 135/62 H 99 06/26/20 07:48 05/13/20 07:48 05/13/20 07:48 05/13/20 07:48 05/13/20 07:48 Intake & Output 05/12/20 05/13/20 05/14/20 06:59 06:59 06:59 Intake Total 1220 950 Output Total 1200 1850 Balance 20 -900 Weight 67.4 kg 67.4 kg General appearance: PRESENT: no acute distress Head exam: PRESENT: atraumatic, normocephalic Respiratory exam: PRESENT: clear to auscultation jennifer, symmetrical, unlabored. ABSENT: prolonged expiratory phas, rales, rhonchi, tachypnea, wheezes Cardiovascular exam: PRESENT: RRR, +S1, +S2 GI/Abdominal exam: PRESENT: normal bowel sounds, soft. ABSENT: distended, guarding, tenderness Rectal exam: PRESENT: deferred Extremities exam: ABSENT: pedal edema Musculoskeletal exam: PRESENT: ambulatory, normal inspection. ABSENT: deformity Neurological exam: PRESENT: alert, awake, oriented to person, CN II-XII grossly intact Psychiatric exam: PRESENT: appropriate affect. ABSENT: agitated, anxious Focused psych exam: ABSENT: delusional, paranoid, restlessness Results Laboratory Results: WBC 15.5 10^3/uL (4.0-10.5) H 05/13/20 05:42 RBC 2.66 10^6/uL (4.35-5.55) L 05/13/20 05:42 Hgb 8.6 g/dL (13.5-17.0) L 05/13/20 05:42 Hct 25.5 % (37.9-51.0) L 05/13/20 05:42 MCV 96 fl (80-97) 05/13/20 05:42 MCH 32.3 pg (27.0-33.4) 05/13/20 05:42 MCHC 33.7 g/dL (32.0-36.0) 05/13/20 05:42 RDW 14.8 % (11.5-14.0) H 05/13/20 05:42 Plt Count 362 10^3/uL (150-450) 05/13/20 05:42 Lymph % (Auto) Not Reportable 05/10/20 04:57 [place] % (Auto) Not Reportable 05/10/20 04:57 Eos % (Auto) Not Reportable 05/10/20 04:57 Baso % (Auto) Not Reportable 05/10/20 04:57 Absolute Neuts (auto) Not Reportable 05/10/20 04:57 Absolute Lymphs (auto) Not Reportable 05/10/20 04:57 Absolute Monos (auto) Not Reportable 05/10/20 04:57 Absolute Eos (auto) Not Reportable 05/10/20 04:57 Absolute Basos (auto) Not Reportable 05/10/20 04:57 Total Counted 100 05/10/20 04:57 Seg Neutrophils % Not Reportable 05/10/20 04:57 Seg Neuts % (Manual) 83 % (42-78) H 05/10/20 04:57 Band Neutrophils % 2 % (3-5) L 05/09/20 04:50 Lymphocytes % (Manual) 9 % (13-45) L 05/10/20 04:57 Monocytes % (Manual) 1 % (3-13) L 05/10/20 04:57 Eosinophils % (Manual) 3 % (0-6) 05/10/20 04:57 Basophils % (Manual) 0 % (0-2) 05/10/20 04:57 Metamyelocytes % 1 % (0-1) 05/10/20 04:57 Myelocytes % 3 % (0) H 05/10/20 04:57 Abs Neuts (Manual) 18.7 10^3/uL (1.7-8.2) H 05/10/20 04:57 Abs Lymphs (Manual) 1.9 10^3/uL (0.5-4.7) 05/10/20 04:57 Abs Monocytes (Manual) 0.2 10^3/uL (0.1-1.4) 05/10/20 04:57 Absolute Eos (Manual) 0.6 10^3/uL (0.0-0.6) 05/10/20 04:57 Abs Basophils (Manual) 0.0 10^3/uL (0.0-0.2) 05/10/20 04:57 Toxic Granulation 1+ 05/09/20 04:50 Toxic Vacuolation PRESENT 05/03/20 07:57 Clumped Platelets PRESENT 05/09/20 04:50 Platelet Comment ADEQUATE 05/10/20 04:57 Polychromasia SLIGHT 05/10/20 04:57 Poikilocytosis SLIGHT 05/06/20 05:10 Anisocytosis SLIGHT 05/10/20 04:57 Ovalocytes SLIGHT 05/10/20 04:57 [place] Cells SLIGHT 05/04/20 06:13 Schistocytes SLIGHT 05/02/20 17:28 RBC Morph Comment NORMO-CYTIC/CHROMIC 05/08/20 04:52 PT 16.0 SEC (11.4-15.4) H 05/02/20 17:28 PT Cancelled 05/02/20 17:28 INR 1.27 05/02/20 17:28 INR Cancelled 05/02/20 17:28 INR (Anticoag Therapy) Cancelled 05/02/20 17:28 D-Dimer 3.78 ug/mL (0.00-0.50) H 05/02/20 17:28 VBG pH 7.47 (7.30-7.42) H 05/02/20 17:28 VBG pCO2 34.8 mmHg (35-63) L 05/02/20 17:28 VBG HCO3 24.5 mmol/L (20-32) 05/02/20 17:28 VBG Base Excess 1.2 mmol/L 05/02/20 17:28 Sodium 134.9 mmol/L (137-145) L 05/13/20 05:42 Potassium 3.6 mmol/L (3.6-5.0) 05/13/20 05:42 Chloride 101 mmol/L (98-107) 05/13/20 05:42 Carbon Dioxide 32 mmol/L (22-30) H 05/13/20 05:42 Anion Gap 2 (5-19) L 05/13/20 05:42 BUN 8 mg/dL (7-20) 05/13/20 05:42 Creatinine 1.09 mg/dL (0.52-1.25) 05/13/20 05:42 Est GFR ( Amer) > 60 (>60) 05/13/20 05:42 Est GFR (Non-Af Amer) Cancelled 05/03/20 07:57 Est GFR (MDRD) Non-Af > 60 (>60) 05/13/20 05:42 Glucose 89 mg/dL (75-110) 05/13/20 05:42 Lactic Acid 1.2 mmol/L (0.7-2.1) 05/03/20 00:38 Calcium 7.6 mg/dL (8.4-10.2) L 05/13/20 05:42 Phosphorus 2.3 mg/dL (2.5-4.5) L 05/02/20 17:28 Magnesium 2.0 mg/dL (1.6-2.3) 05/13/20 05:42 Ferritin 331.00 ng/mL (17.9-464.0) 05/02/20 17:28 Total Bilirubin 0.3 mg/dL (0.2-1.3) 05/10/20 04:57 Direct Bilirubin 0.0 mg/dL (0.0-0.4) 05/10/20 04:57 Neonat Total Bilirubin Not Reportable 05/10/20 04:57 Neonat Direct Bilirubin Not Reportable 05/10/20 04:57 Neonat Indirect Bili Not Reportable 05/10/20 04:57 AST 26 U/L (17-59) 05/10/20 04:57 ALT 12 U/L (<50) 05/10/20 04:57 Alkaline Phosphatase 64 U/L (38-126) 05/10/20 04:57 Creatine Kinase 310 U/L (55-170) H 05/02/20 17:28 Troponin I 0.201 ng/mL 05/03/20 20:07 C-Reactive Protein 371.4 mg/L (<10.0) H 05/02/20 17:28 Total Protein 4.8 g/dL (6.3-8.2) L 05/10/20 04:57 Albumin 2.0 g/dL (3.5-5.0) L 05/10/20 04:57 EGFR Cancelled 05/03/20 07:57 Urine Color YELLOW 05/11/20 11:43 Urine Appearance CLEAR 05/11/20 11:43 Urine pH 6.0 (5.0-9.0) 05/11/20 11:43 Ur Specific [place] 1.012 05/11/20 11:43 Urine Protein NEGATIVE mg/dL (NEGATIVE) 05/11/20 11:43 Urine Glucose (UA) NEGATIVE mg/dL (NEGATIVE) 05/11/20 11:43 Urine Ketones NEGATIVE mg/dL (NEGATIVE) 05/11/20 11:43 Urine Blood NEGATIVE (NEGATIVE) 05/11/20 11:43 Urine Nitrite NEGATIVE (NEGATIVE) 05/11/20 11:43 Urine Bilirubin NEGATIVE (NEGATIVE) 05/11/20 11:43 Urine Urobilinogen NEGATIVE mg/dL (<2.0) 05/11/20 11:43 Ur Leukocyte Esterase TRACE (NEGATIVE) H 05/11/20 11:43 Urine WBC (Auto) 3 /HPF 05/11/20 11:43 Urine RBC (Auto) 2 /HPF 05/11/20 11:43 U Hyaline Cast (Auto) 1 /LPF 05/06/20 11:37 Urine Bacteria (Auto) TRACE /HPF 05/11/20 11:43 Urine WBC Clumps FEW /HPF 05/02/20 18:34 Squamous Epi Cells Auto 1 /HPF 05/02/20 18:34 Urine Mucus (Auto) RARE /LPF 05/11/20 11:43 Urine Ascorbic Acid 40 (NEGATIVE) H 05/11/20 11:43 Time Trough Drawn 0542 05/12/20 05:42 Vancomycin Trough 14.5 ug/mL (5.0-20.0) 05/12/20 05:42 COVID-19 Source NASOPHARYNGEAL 05/02/20 18:46 COVID-19 (MYESHA) NOT DETECTED 05/02/20 18:46 SARS-CoV-2 (PCR) Cancelled 05/02/20 18:46 Slides for Path Review PATHOLOGIST REVIEWED 05/09/20 04:50 05/02/20 05/03/20 05/03/20 17:28 00:38 07:57 Troponin I 0.703 0.422 Cancelled 05/03/20 05/03/20 10:21 20:07 Troponin I 0.240 0.201 Impressions: Chest X-Ray 05/02/20 18:11 IMPRESSION: Elevated left hemidiaphragm. Cannot exclude left lower lobe pneumonia. Abdomen/Pelvis CT 05/02/20 19:39 IMPRESSION: Artifact from the patient's arms. Imaging is degraded by patient motion, with resultant artifact. The best possible images were obtained. Bibasilar airspace disease left greater than right. Most of this is atelectasis. There is a small consolidated component left lower lobe. Possibly pneumonia is raised. Cholelithiasis without acute cholecystitis. No acute intra-abdominal process is seen. 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 The patient will greatly benefit from aggressive wound care delivered at a long-term acute [facility] hospital. In addition he will be able to receive aggressive physical therapy as well as occupational therapy if needed. He will benefit from continuous dietitian monitoring. Plan of Treatment: Transfer to [facility]. Antibiotics through May 18. Goals: Complete healing of perineal wound. Maximize physical recovery Return to long-term care Time Spent: Greater than 30 Minutes Stroke Is this a Stroke Patient?: No Acute Heart Failure - Is this a Heart Failure Patient?: No
[2020-05-13] MEDS: ASCORBIC ACID 500 MG TABLET PO SCH (11:25)
[2020-05-13] MEDS: LACTOBACILLUS ACIDOPHILUS 250 MG TAB PO SCH (11:26)
[2020-05-13] MEDS: CHOLECALCIFEROL (D3) 1,000 UNIT (25 MCG) TABLET PO SCH (11:26)
[2020-05-13] MEDS: CYANOCOBALAMIN (VITAMIN B-12) 1,000 MCG TABLET PO SCH (11:26)
[2020-05-13] MEDS: ASPIRIN 81 MG TABLET, ENT COATED PO SCH (11:27)
[2020-05-13] MEDS: TAMSULOSIN HCL 0.4 MG CAP.SR.24H PO SCH (11:27)
[2020-05-13] MEDS: LORATADINE 10 MG TABLET PO SCH (11:27)
[2020-05-13] MEDS: DILTIAZEM HCL 120 MG CAP.SR.24H PO SCH (11:27)
[2020-05-13] MEDS: MEMANTINE HCL 10 MG TABLET PO SCH (11:27)
[2020-05-13] MEDS: FOLIC ACID 1 MG TABLET PO SCH (11:27)
[2020-05-13] MEDS: FLUTICASONE NASAL SPRAY 50 MCG/SPRY 120 SPRAY/16 GM NASL SCH (11:32)
[2020-05-13] MEDS: FLUCONAZOLE 100 MG TABLET PO SCH (11:38)
[2020-05-13] MEDS: MELOXICAM 7.5 MG TABLET PO SCH (11:38)
[2020-05-13] MEDS: METHOTREXATE SODIUM 2.5 MG TABLET PO SCH (11:39)
[2020-05-13 11:58] VITALS: BP 136/76
== END 2020-05-13 14:00 | DRG 853 ==
LOC: ER 17:16 → EH 22:07 → 5 23:37 → 3W 05-05 00:41 → 4S 05-10 18:50
PROVIDERS: ADMIT Internal Medicine; ATTEND Hospitalist
PROC: B24BZZ4 Ultrasonography of Heart with Aorta, Transesophageal (ICD-10-PCS; 2020-05-03)
PROC: 0J993ZX Drainage of Buttock Subcutaneous Tissue and Fascia, Percutaneous Approach, Diagnostic (ICD-10-PCS; 2020-05-07)
PROC: 0JBB0ZZ Excision of Perineum Subcutaneous Tissue and Fascia, Open Approach (ICD-10-PCS; principal; 2020-05-08 15:30)
DX: A41.9 Sepsis, unspecified organism (principal); J18.9 Pneumonia, unspecified organism; K40.40 Unilateral inguinal hernia, with gangrene, not specified as recurrent; I21.A1 Myocardial infarction type 2; M72.6 Necrotizing fasciitis; N17.9 Acute kidney failure, unspecified; E87.1 Hypo-osmolality and hyponatremia; J44.0 Chronic obstructive pulmonary disease with (acute) lower respiratory infection; N30.00 Acute cystitis without hematuria; L02.31 Cutaneous abscess of buttock; N49.3 Fournier gangrene; B95.62 Methicillin resistant Staphylococcus aureus infection as the cause of diseases classified elsewhere; I48.0 Paroxysmal atrial fibrillation; M06.9 Rheumatoid arthritis, unspecified; G30.9 Alzheimer's disease, unspecified; F02.80 Dementia in other diseases classified elsewhere, unspecified severity, without behavioral disturbance, psychotic disturbance, mood disturbance, and anxiety; B96.1 Klebsiella pneumoniae [K. pneumoniae] as the cause of diseases classified elsewhere; Z20.828 Contact with and (suspected) exposure to other viral communicable diseases; E86.0 Dehydration; Z87.891 Personal history of nicotine dependence; Z66 Do not resuscitate; Z79.82 Long term (current) use of aspirin; Z88.6 Allergy status to analgesic agent; Z88.4 Allergy status to anesthetic agent; Z79.899 Other long term (current) drug therapy
CPT/HCPCS: 00300; 36415; 71045; 74176; 80048; 80053; 80202; 81001; 82550; 82565; 82728; 82803; 83605; 83735; 84100; 84484; 85025; 85027; 85379; 85610; 86140; 87040; 87070; 87075; 87077; 87086; 87088; 87186; 87205; 87635; 93005; 93010; 93306; 96361; 96365; 96366; 96367; 96368; 99140; 99283; C9803; J0456; J0696; J1644; J1650; J1720; J2250; J2405; J2704; J3010; J3370; J3490; J7030; J7060; J7120; J7620; J8610